=== PATIENT | female | born 1970 | race Caucasian/White ===

== ENCOUNTER 2017-03-16 09:13 | Emergency (ER) | payer OTHER, SELFPAY ==
[2017-03-16 09:14] VITALS: BP 116/77; PULSE 102; RESP 18; TEMP 36.9; O2SAT 97; BMI 39.2
--- NOTE | 2017-03-16 09:19 | ED.DCSUM_ITS ---
- ER Visit Summary Date of Service: 03/16/17 Chief Complaint: Left leg injury History of Present Illness: The patient is a 46 F presenting with left leg injury. She was running a swim meet this morning and when she stepped off of a platform, she felt a snap over her left Achilles/calf muscle region and has been unable to bear weight since then. She did not fall or sustain direct trauma. Denies any other injuries. Physical Examination: She has tenderness on palpation over the distal gastroc muscle on the left. There is no palpable deformity. She has no ankle or foot tenderness at all and has a strong pulse and normal neurovascular examination distally. Compartments are all soft. She can still flex her foot and her foot still moves when I squeeze her calf. No deformity. Test Results: Left leg x-ray today for acute fracture based on my independent interpretation. The formal radiology read is still pending. Emergency Department Course and Treatment: The location of her pain seems most consistent with a gastrocnemius muscle tear. She has soft compartments. Normal distal neurovascular examination. No evidence of an acute thromboembolic event. Treatment Plan: She was placed in a boot and given crutches and referred to orthopedics for close follow-up Disposition: Home stable condition Impression: Initial encounter acute left leg pain, suspect gastroc tear This note was generated with [employer] dictation software. It may contain incorrect words, spelling, and punctuation that were not noted in review of the chart prior to signing ED Disposition - Plan for ED Patient: Chief Complaint: Lower Extremity Injury Instructions: ED Tendon Rupture Achilles Prescriptions: Oxycodone HCl/Acetaminophen [Percocet 5/325] 1 tablet PO Q6H PRN PRN 3 Days #12 tablet PRN Reason: Pain Referrals: Melvin Jones DO [STAFF PHYSICIAN] -
--- NOTE | 2017-03-16 09:44 | RAD_ITS ---
STUDY: X-RAY - LEFT TIBIA AND FIBULA REASON FOR EXAM: Female, 46 years old. Trauma. TECHNIQUE: 2 view(s) of the tibia and fibula were obtained. COMPARISON: None. FINDINGS: Normal visualized tibia. Normal visualized fibula. The soft tissue structures are unremarkable. RAD/Tibia & Fibula 2 Views IMPRESSION: Normal x-ray examination of the tibia and fibula. Electronically Signed: Ephraim Reed MD at 9:56 EST Tel , Service support ,
[2017-03-16] MEDS: oxyCODONE 5 MG Tablet PO (10:24)
== END 2017-03-16 10:38 | disposition home or self-care (01) ==
PROVIDERS: Emergency Provider Emergency Medicine; Family Provider Internal Medicine; PCP Internal Medicine
DX: S86.112A Strain of other muscle(s) and tendon(s) of posterior muscle group at lower leg level, left leg, initial encounter (principal); M79.662 Pain in left lower leg; Z79.51 Long term (current) use of inhaled steroids; Z79.82 Long term (current) use of aspirin; Z79.4 Long term (current) use of insulin; Z79.899 Other long term (current) drug therapy; X58.XXXA Exposure to other specified factors, initial encounter; Y93.89 Activity, other specified; Y92.095 Swimming-pool of other non-institutional residence as the place of occurrence of the external cause; Y99.8 Other external cause status
CPT/HCPCS: 73590; 99285

== ENCOUNTER 2017-04-03 06:07 | Day surgery (SDC) | payer OTHER, SELFPAY ==
[2017-04-03] VITALS (8 sets, daily range): BP systolic 93–116; BP diastolic 49–100; PULSE 94–105; RESP 14–16; TEMP 35.8–36.3; O2SAT 96–100; BMI 38.5
[2017-04-03 06:57] LABS: Bedside Glucose 152 mg/dL (70-110)
[2017-04-03] MEDS: Cefazolin 1 GM/50 ML BAG IV (07:30)
--- NOTE | 2017-04-03 10:34 | PCM.OPRPT ---
Problem List (1) Achilles rupture, left Status: Acute Report of Operation Date of Procedure: 04/03/17 Pre-Operative Diagnosis: Achilles tendon rupture left foot Post-Operative Diagnosis: Achilles tendon rupture left foot Surgery/Procedure Performed:: Repair of left Achilles tendon rupture Description of Surgical Findings:: Moderate degeneration of left Achilles tendon with gapping of tendon at 8 cm proximal to the insertion on the calcaneus. Type of Anesthesia:: General, General/Regional - left popliteal Anesthesiologist: Chucky Villasenor Specimen's removed: degenerated tendon Drains: none Estimated Blood Loss (mL): minimal Description of Procedure: Pt was brought to OR and following sedation, was placed in the prone position. All prominences were well padded and protected. The popliteal block had been performed previously. A thigh tourniquet was put in place and the left lower leg was scrubbed, prepped, and draped in the usual aseptic manner. The left foot was then elevated to exsanguinate the limb and the pneumatic thigh tourniquet was inflated to 300mmHg. Then attention was directed to the left posterior lower leg, where an [id number] linear longitudinal incision was made medial and parallel to the central aspect of the left Achilles tendon. The incision was deepened through sharp and blunt dissection down to the level of the paratenon. All superficial bleeding vessels were cauterized and ligated. The sural nerve was protected, as was the small saphenous vein. The paratenon was then opened with a linear longitudinal incision through the watershed area of the tendon. The complete rupture was about 8 cm proximal to the insertion on the calcaneus. The tendon had moderate degeneration and fatty infiltration. This was sharply dissected throughout the proximal portion with the distal portion of the tendon being only minimally affected. The wound was flushed with copious amounts of NSS and the hematoma was drained at the rupture site, which was about 1cm. Then, with 3-0 Ethibond sutures, the tendon was repaired both proximally and distally with 2 separate sutures in a modified Alfred type of stitch. At the rupture site, the ends were tied together, reducing the gap and coapting the tendon ends. 2-0 Ethibond sutures were then sutured throughout the entire length of the tendon, serving as further reinforcement. With slight dorsiflexion of the foot, the tendon remained intact. Then, a trimmed 1.5mm thickness Arthroflex 101 Acellular dermis with Matracell was placed on the superficial aspect of the tendon. It was sutured in place with 3-0 vicryl sutures. The paratenon was then reapproximated and coapted using 3-0 vicryl sutures, and a small amount of gapping was present due to the increased thickness with the graft. The subcutaneous tissues were reapproximated and coapted with 3- vicryl sutures. Skin was reapproximated and coapted using 3-0 prolene sutures. Xeroform was then placed along the incision line. A sterile compressive dressing consisting of 4x4 gauze and kerlix was applied. ABD's were applied for heel cushions. A well padded posterior splint was then applied. The thigh tourniquet was released and a prompt hyperemic response was present to the toes of the left foot. The patient was transferred to the recovery room with vital signs stable and vascular status intact to left foot. Following a period of post operative monitoring, the patient will be discharged with written and oral home going instructions. She is to keep the dressing and splint clean, dry, intact and avoid excessive ambulation. Strict NWB left foot and she uses an knee walker and crutches. Follow in Dr. Ivy's office for follow up care and if any problems arise. Rx was written for Percocet for pain control to be taken prn. Grafts/Implants Used: Arthroflex 101 Acellular dermis with matracell 1.5mm thickness - Complications none - Admit VTE Documentation VTE Pharm Prophylaxis ordered?: No Reason prophylaxis not ordered:: Procedure Not Indicated
[2017-04-03 11:01] LABS: Bedside Glucose 125 mg/dL (70-110)
== END 2017-04-03 12:37 | disposition home or self-care (01) ==
LOC: SDC 06:08 → AC 06:09
PROVIDERS: Family Provider Internal Medicine; PCP Internal Medicine; Visit Provider Podiatrist
PROC: (CPT 27650; principal; 2017-04-03 07:15)
DX: S86.012A Strain of left Achilles tendon, initial encounter (principal); E11.9 Type 2 diabetes mellitus without complications; I65.23 Occlusion and stenosis of bilateral carotid arteries; I10 Essential (primary) hypertension; E78.2 Mixed hyperlipidemia; K21.9 Gastro-esophageal reflux disease without esophagitis; J45.909 Unspecified asthma, uncomplicated; G43.909 Migraine, unspecified, not intractable, without status migrainosus; M54.12 Radiculopathy, cervical region; I48.91 Unspecified atrial fibrillation; F34.1 Dysthymic disorder; Z86.010 Personal history of colon polyps; H81.09 Meniere's disease, unspecified ear; E55.9 Vitamin D deficiency, unspecified; E11.43 Type 2 diabetes mellitus with diabetic autonomic (poly)neuropathy; I34.1 Nonrheumatic mitral (valve) prolapse; F41.9 Anxiety disorder, unspecified; F32.9 Major depressive disorder, single episode, unspecified; Z79.51 Long term (current) use of inhaled steroids; Z79.4 Long term (current) use of insulin; Z79.899 Other long term (current) drug therapy; Z79.82 Long term (current) use of aspirin; Z79.891 Long term (current) use of opiate analgesic; Z87.891 Personal history of nicotine dependence; X58.XXXA Exposure to other specified factors, initial encounter; Y93.9 Activity, unspecified; Y92.9 Unspecified place or not applicable; Y99.9 Unspecified external cause status
CPT/HCPCS: 01472; 27650; 82962; J7120; J2405

== ENCOUNTER → 2017-05-20 12:33 | Outpatient (CLI) | payer OTHER, SELFPAY ==
--- NOTE | 2017-05-20 12:35 | BI_ITS ---
MAMMOGRAPHY - BILATERAL SCREENING REASON FOR EXAM: Female, 46 years old. Routine annual screening examination. PERTINENT HISTORY: Non-contributory. TECHNIQUE: Digital bilateral breast marine (3D mammographic acquisition) in the CC and MLO projections. 2-D mediolateral oblique (MLO) and craniocaudad (CC) views of both breasts were obtained. CAD: Full Field Digital Mammography with Computer Added Detection was performed. COMPARISON: Comparison is made with prior study dated October 06, 2015 and April 27, 2013. FINDINGS: Breast Composition: The breasts are almost entirely fatty. There are no dominant masses or suspicious calcifications. The previously seen nodular density in the deep upper outer aspect of the right breast has decreased in size. It presently measures 3.6 mm x 6.3 mm. No other significant abnormalities are identified. There has been no significant change since the prior study. BI/SCREENING MAMM (CAD), BILAT IMPRESSION: Stable bilateral screening mammogram. Yearly follow-up mammogram recommended. (A) ASSESSMENT CATEGORY: BIRADS Category 2: Benign. A letter regarding these results will be sent to the patient by the facility within 30 days. Approximately 10% of breast cancers are not detected by mammography. A normal mammogram should not delay biopsy of a clinically suspicious abnormality. [id number] Electronically Signed: Abdirahman Salas MD at 14:15 EDT Tel [phone], Service support ,
== END ==
PROVIDERS: Family Provider Internal Medicine; PCP Internal Medicine; Visit Provider Internal Medicine
DX: Z12.31 Encounter for screening mammogram for malignant neoplasm of breast (principal)
CPT/HCPCS: 77063; 77067

== ENCOUNTER → 2017-08-16 08:48 | Outpatient (CLI) | payer OTHER, SELFPAY ==
--- NOTE | 2017-08-16 09:00 | RAD_ITS ---
STUDY: X-RAY - ESOPHAGUS (BARIUM SWALLOW) WITH FLUOROSCOPY REASON FOR EXAM: Female, 46 years old. Dysphagia for solids. TECHNIQUE: 16 view(s) of the esophagus were obtained following swallowing of barium. FLUOROSCOPY TIME (if supplied): (0:32) minutes/seconds COMPARISON: None. FINDINGS: There is no demonstrated esophageal foreign body. There is no demonstrated stricture or mucosal abnormality. There is a small hiatal hernia of the fundus of the stomach. Mild degree of gastroesophageal reflux. The patient ingested a 12 mm tablet of barium without any difficulty. Normal visualized aortic arch and descending thoracic aorta. Normal visualized pulmonary parenchyma. Normal visualized osseous structures of the thorax. RAD/Esophagus Only IMPRESSION: Small sliding hiatal hernia with gastroesophageal reflux. Electronically Signed: Abdirahman Salas MD at 9:36 EDT Tel [phone], Service support ,
== END ==
PROVIDERS: Family Provider Family Medicine; PCP Family Medicine; Visit Provider Internal Medicine Gastroenterology
DX: R13.10 Dysphagia, unspecified (principal)
CPT/HCPCS: 74220

== ENCOUNTER → 2017-11-04 15:59 | Outpatient (CLI) | payer OTHER, SELFPAY ==
[2017-11-08 08:22] LABS: HPV Reflexed? NOT INDICATED
== END ==
PROVIDERS: Family Provider Family Medicine; PCP Family Medicine; Visit Provider Obstetrics & Gynecology
DX: Z12.4 Encounter for screening for malignant neoplasm of cervix (principal)
CPT/HCPCS: 88175; G0145

== ENCOUNTER → 2017-11-18 07:57 | Outpatient (CLI) | payer OTHER, SELFPAY ==
[2017-11-18 12:12] LABS: Absolute Lymphocyte Count 3.15 X10^3/ul (0.83-4.51); Absolute Neutrophil Count 5.1 X10^3/uL (2.0-7.7); Basophil# 0.03 X10^3/uL; Basophil% 0.3 % (0-1); Eosinophils% 3.2 % (0-5); Hematocrit 42.1 % (37-47); Hemoglobin 13.6 g/dl (12.0-15.0); Lymphocyte # 3.15 X10^3/ul (4.0); Lymphocyte % 33.7 % (19-41); Mean Corp Hgb Conc 32.3 g/gl (32-36); Mean Corpuscular Hgb 30.9 pg (27.0-32.0); Mean Corpuscular Volume 95.7 fL (81-99); Mean Platelet Vol. 9.2 fl (6.2-12.0); Monocyte# 0.72 X10^3/uL; Monocyte% 7.7 % (0-10); Neutrophil # 5.14 X10^3/uL (2.7-7.7); POSITIVE COUNT NO; POSITIVE DIFFERENTIAL NO; POSITIVE MORPHOLOGY NO; Platelet Count 322 K/mm3 (150-450); RBC Distribution Width CV 13.2 % (11.6-14.6); RBC Distribution Width SD 45.9 fl (35.1-43.9); White Blood Count 9.4 K/mm3 (4.4-11.0)
[2017-11-18 12:14] LABS: Hemoglobin A1c 7.6 % (4.2-6.3)
[2017-11-18 12:20] LABS: ALB/GLOB Ratio 0.8 RATIO (0.9-2.4); AST(SGOT) 20 U/L (15-37); Alanine Aminotransfer ALT/SGPT 39 U/L (13-56); Albumin, Serum 3.4 g/dL (3.2-5.0); Alkaline Phosphatase 95 U/L (45-117); Anion Gap 7 (5-15); BUN 16 mg/dL (7-18); BUN/Creat Ratio 18.3 RATIO (10-20); Calcium,Total 8.7 mg/dL (8.5-10.1); Chloride 104 mmol/L (98-107); Cholesterol 211 mg/dL (200); Creatinine, Serum 0.87 mg/dL (0.55-1.02); EST Glomerular Filtration Rate 74 mL/min (>60); Est Glom Filt Rate - Afr Amer 90 mL/min (>60); Globulin 4.1 g/dL (2.2-4.2); Glucose 91 mg/dL (74-106); High Density Lipoprotein 41 mg/dL; Potassium 3.7 mmol/L (3.5-5.1); Protein, Total 7.5 g/dL (6.4-8.2); Sodium Level 137 mmol/L (136-145); Thyroid Stim Hormone (TSH) 3.83 uIU/mL (0.358-3.74); Triglycerides 299 mg/dL; Very Low Density Lipoprotein 60 mg/dL (5-40)
[2017-11-18 12:21] LABS: Microalbumin,Random Urine < 5.0 mg/L (NO RANGE EST.)
== END ==
PROVIDERS: Family Provider Family Medicine; PCP Family Medicine; Visit Provider Orthopaedic Surgery Hand Surgery
DX: E11.9 Type 2 diabetes mellitus without complications (principal); K21.9 Gastro-esophageal reflux disease without esophagitis; F32.9 Major depressive disorder, single episode, unspecified; G56.01 Carpal tunnel syndrome, right upper limb; J45.909 Unspecified asthma, uncomplicated
CPT/HCPCS: 36415; 80053; 80061; 82043; 82570; 83036; 84443; 85025

== ENCOUNTER 2018-03-18 08:30 | Outpatient (RCR) | payer OTHER, SELFPAY ==
[2018-01-20 11:54] VITALS: BMI 39.2
[2018-01-30 10:05] VITALS: BMI 41.3
--- NOTE | 2018-02-20 11:44 | HP.PTEVAL ---
Patient's Visit Information DEIDRA CALLEJAS is a 47 year old F referred to Physical Therapy by Chante Ivy with a diagnosis of Left Achilles Rupture with Repair. Date of Evaluation: 02/20/18 Physical Therapist: Yanni Salcedo DPT - Visit Plan Frequency: 2-3x /Week Duration: 4 Weeks Plan: Modality- US and Dry Needling with scar massage/management - Subjective Findings: Left Ruptured achilles Mar 16 last year had surgery Apr [address] Ivy- had to do a graft due to the severity of the rupture. Did the normal stuff crutches, boot, etc. 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 She has sharp/shooting pain in the foot and she has increased pain. She thinks its nerve pain. Pain is located along the whole heel and along the achilles-and the pain radiates to the toes-no radiating pain up the leg. Describes the pain as stabbing- makes her jump sometimes- can't stand anyone touching it. Swelling was entrapping the nerve. Worst: 8/10 Agg: standing up on it- night laying down Hard to sleep. Best: 0/10 Eases: mornings it feels pretty good, elevation/rest. 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 She is on her feet a lot. does not have full feeling in the toes but gets better as she comes more towards the heel. No cramping in the toes but does get them in the gastroc. Did do formal physical therapy at [facility]- did have ice water baths, e-stim and ultrasound. Had a spinal injection about an hour ago so she is a little foggy. Has them about every 3 months. No recent imaging. PMHx: semi accident- shoulder surgery on the right 6 or so years ago, Right Hip surgery cleaned up about 18 years ago, left ankle horse ligament put in 2010, Carpal Tunnel 6 years ago with restructure this year, Gallbladder in - DM Type 2, low blood pressure, Radical hysterectomy 2016, migraines. Meds: potasium cholride, glucophage, daily asprin, imortiprolene, topomax, lovonox- will bring a list next time. walk around thick soled slippers since surgery- comfortable in ugg type boots (bearpaw) with a thick sole- no orthotics- to painful to wear tennis shoes. - Objective Posture: FH, RS. Gait: no deviation noted. SLS: not tested. HR/TR: able with UE A. ROM: WNL. Strength: 5/5 throughout LE. Scar: significant adhesions along achilles tendon- hypersensitive along entire scar. Did not test SLS or stairs secondary to spinal injection approx an hour ago- still groggy from anesthsia. Will get other measurements as needed at later date- no treatment today will start next visit - Goals Goal 1:: Patient will demonstrate ability to touch scar with 0/10 pain Goal Time Frame: 4-6 Weeks Goal 2:: Patient will report ability to return to all ADL's with 0/10 pain Goal Time Frame: 4-6 Weeks Goal 3:: Patient will have little scar adhesions along gastroc scar Goal Time Frame: 4-6 Weeks - Rehabilitation Potential Physical Therapy Diagnosis: Patient presents with hypomobility of the scar along achilles- she has incresed scar tissue increased pain with ADL's. Rehabilitation Potential: Fair - Anticipated Interventions Patient/Client Instruction: Educate patient on: Benefits of Fitness Program Manual Therapy Techniques to Include: Functional dry needling For the Purpose of:: To improve nutrient delivery to tissue TENS: Yes Cryotherapy (ice pack, ice massage): Yes Ultrasound (thermal/non thermal): Yes For the Purpose of:: To decrease pain, To decrease swelling/inflammation Thank you for the opportunity to evaluate your patient. For Medicare and Medicare HMO plans, please review the plan of care and approve it. It will need to be FAXED BACK to us at [phone] for Medicare purposes. For Medicare only, by signing this I certify the plan of care. Please let me know if there are questions or concerns regarding this plan of care. Physician Signature: Date:
--- NOTE | 2018-06-12 11:49 | HP.PT.NRP ---
HP - Discharge Summary (1) - Patient Information DEIDRA CALLEJAS was seen in my office for initial evaluation on 02/20/18. The following Plan of Care was established for this patient: Initial Frequency: 2-3x /Week Initial Duration: 4 Weeks - Anticipated Interventions Patient/Client Instruction: Educate patient on: Benefits of Fitness Program Manual Therapy Techniques to Include: Functional dry needling For the Purpose of:: To improve nutrient delivery to tissue TENS: Yes Cryotherapy (ice pack, ice massage): Yes Ultrasound (thermal/non thermal): Yes For the Purpose of:: To decrease pain, To decrease swelling/inflammation This patient was last seen in our office . Pertinent comments regarding their Physical therapy will appear below: Patient has not attended physical therapy is over 30 days- appropriate to be d/c from PT and return to MD as needed for further evaluation. At this point I will be discontinuing this patient from physical therapy. I would be happy to see this patient again in the future if found appropriate by the physician. Thank you! SHAYE CervantesT
== END 2018-03-18 19:00 | disposition home or self-care (01) ==
LOC: PT 08:30
PROVIDERS: Family Provider Family Medicine; PCP Family Medicine; Referring Provider Podiatrist; Visit Provider Podiatrist
DX: Z98.890 Other specified postprocedural states (principal)
CPT/HCPCS: 97014; 97035; 97140; 97161; G0283

== ENCOUNTER → 2018-04-28 10:32 | Outpatient (CLI) | payer OTHER, SELFPAY ==
[2018-01-30 10:05] VITALS: BMI 41.3
--- NOTE | 2018-04-28 10:41 | MRI_ITS ---
STUDY: MRI BRAIN WITHOUT CONTRAST REASON FOR EXAM: Female, 47 years old. migraine -- weakness rt side, episodes of speech problems x 1 1/2 months. TECHNIQUE: Standardized multiplanar fat and water weighted pulse sequences were obtained. COMPARISON: July 16, 2016 FINDINGS: Normal size of the ventricles and extra-axial spaces for the patient's age. Normal white matter tracts of the supratentorial brain. Normal bilateral basal ganglia. Normal thalami. There is no extra-axial fluid accumulation. Normal flow voids within the major intracranial circulation suggesting patency by spin echo criteria. Normal sella turcica, pituitary gland, infundibular stalk, optic chiasm and hypothalamus. Normal tectal plate and pineal gland. Normal midbrain, arnel and medulla. Normal cerebellum. Normal basal cisterns. Normal bilateral temporal bones. Normal bilateral internal auditory canals. No demonstrated orbital abnormality, within the constraints of a routine brain study. Normal visualized paranasal sinuses. Normal calvarium and skull base. Normal visualized soft tissue structures. Normal visualized upper cervical spine. MRI/Brain without Contrast IMPRESSION: Normal unenhanced MRI of the brain. Electronically Signed: Nik Chavez MD at 10:32 EDT Tel , Service support ,
== END ==
LOC: MRI 10:33
PROVIDERS: Family Provider Family Medicine; PCP Family Medicine; Referring Provider Psychiatry & Neurology Neurology; Visit Provider Psychiatry & Neurology Neurology
DX: G43.719 Chronic migraine without aura, intractable, without status migrainosus (principal)
CPT/HCPCS: 70551

== ENCOUNTER 2018-06-01 13:50 | Observation (INO) | payer OTHER, SELFPAY ==
[2018-01-30 10:05] VITALS: BMI 41.3
[2018-06-01] VITALS (11 sets, daily range): BP systolic 104–141; BP diastolic 62–87; PULSE 77–91; RESP 14–16; TEMP 36.1–36.9; O2SAT 98–100; BMI 42.0; BMI 40.8; BMI 40.9
--- NOTE | 2018-06-01 14:07 | CT_ITS ---
STUDY: CTA OF THE BRAIN REASON FOR EXAM: Female, 47 years old. TROUBLE SPEAKING X 4 DAYS RADIATION DOSAGE (If Supplied By Facility): CTDIvol = ( 27.33 ) mGy, DLP = ( 1468.53 ) mGycm TECHNIQUE: CT angiography was performed with a multi-detector CT scanner. Data acquisition was obtained from the skull base through the vertex following intravenous administration of 100ML IV Isovue 370. MIP images were reconstructed from the axial data set. Post-processing of the angiographic images was performed, with multiplanar reformation and 3D reconstruction. Individualized dose optimization techniques were used for this CT. COMPARISON: MRI dated April 28, 2018 FINDINGS: Normal bilateral petrous carotid arteries. Normal right cavernous carotid artery with a normal supraclinoid bifurcation. Normal left cavernous carotid artery with a normal supraclinoid bifurcation. Normal right A1 segments of the anterior cerebral artery. Normal left A1 segments of the anterior cerebral artery. Normal intact anterior communicating artery (ACOM). Normal bilateral A2 segments of the anterior cerebral arteries. Normal right M1 and M2 segments of the middle cerebral arteries, with a normal M1 bifurcation. Normal left M1 and M2 segments of the middle cerebral arteries, with a normal M1 bifurcation. There is a persistent origin of the right posterior cerebral artery with absence of the posterior communicating artery (PCOM). There is non-visualization of the left posterior communicating artery (PCOM). Normal bilateral vertebral arteries. Normal basilar artery with a normal basilar bifurcation. The visualized bilateral superior cerebellar (SCA) arteries are normal. Normal bilateral P1, P2 and visualized P3 segments of the posterior cerebral arteries. There is no demonstrated aneurysm of the [place]. There is no demonstrated abnormality of the visualized brain. IMPRESSION: Normal [place] without a demonstrated aneurysm or hemodynamically significant stenosis. Electronically Signed: Nik Chavez MD at 15:14 EDT Tel , Service support , STUDY: CTA NECK WITH CONTRAST REASON FOR EXAM: Female, 47 years old. TROUBLE SPEAKING X 4 DAYS RADIATION DOSAGE (If Supplied By Facility): CTDIvol = ( ) mGy, DLP = ( ) mGycm TECHNIQUE: CT angiography with multi-detector data acquisition was performed from the aortic arch to the skull base following intravenous administration of 100ML IV Isovue 370. MIP images were reconstructed from the axial data set. Post-processing of the angiographic images was performed, with multiplanar reformation and 3D reconstruction. Individualized dose optimization techniques were used for this CT. COMPARISON: None. FINDINGS: AORTIC ARCH: Normal visualized aortic arch. Normal origins of the brachiocephalic, left common carotid, and left subclavian arteries. RIGHT CAROTID ARTERIES: Normal right common carotid artery (CCA). Normal right common carotid bulb. Normal origin of the right internal carotid (ICA) artery without a hemodynamically significant stenosis. Normal visualized cervical portion of the right internal carotid artery. Normal origin of the right external carotid artery (ECA). LEFT CAROTID ARTERIES: Normal left common carotid artery (CCA). Normal left common carotid bulb. Normal origin of the left internal carotid (ICA) artery without a hemodynamically significant stenosis. Normal visualized cervical portion of the left internal carotid artery. Normal origin of the left external carotid artery (ECA). VERTEBRAL ARTERIES: Normal bilateral vertebral arteries. CT/CTA Neck W/WO Contrast IMPRESSION: Normal bilateral cervical carotid and vertebral arteries. Electronically Signed: Nik Chavez MD at 15:17 EDT Tel , Service support ,
--- NOTE | 2018-06-01 14:07 | CT_ITS ---
STUDY: CTA OF THE BRAIN REASON FOR EXAM: Female, 47 years old. TROUBLE SPEAKING X 4 DAYS RADIATION DOSAGE (If Supplied By Facility): CTDIvol = ( 27.33 ) mGy, DLP = ( 1468.53 ) mGycm TECHNIQUE: CT angiography was performed with a multi-detector CT scanner. Data acquisition was obtained from the skull base through the vertex following intravenous administration of 100ML IV Isovue 370. MIP images were reconstructed from the axial data set. Post-processing of the angiographic images was performed, with multiplanar reformation and 3D reconstruction. Individualized dose optimization techniques were used for this CT. COMPARISON: MRI dated April 28, 2018 FINDINGS: Normal bilateral petrous carotid arteries. Normal right cavernous carotid artery with a normal supraclinoid bifurcation. Normal left cavernous carotid artery with a normal supraclinoid bifurcation. Normal right A1 segments of the anterior cerebral artery. Normal left A1 segments of the anterior cerebral artery. Normal intact anterior communicating artery (ACOM). Normal bilateral A2 segments of the anterior cerebral arteries. Normal right M1 and M2 segments of the middle cerebral arteries, with a normal M1 bifurcation. Normal left M1 and M2 segments of the middle cerebral arteries, with a normal M1 bifurcation. There is a persistent origin of the right posterior cerebral artery with absence of the posterior communicating artery (PCOM). There is non-visualization of the left posterior communicating artery (PCOM). Normal bilateral vertebral arteries. Normal basilar artery with a normal basilar bifurcation. The visualized bilateral superior cerebellar (SCA) arteries are normal. Normal bilateral P1, P2 and visualized P3 segments of the posterior cerebral arteries. There is no demonstrated aneurysm of the [place]. There is no demonstrated abnormality of the visualized brain. IMPRESSION: Normal [place] without a demonstrated aneurysm or hemodynamically significant stenosis. Electronically Signed: Nik Chavez MD at 15:14 EDT Tel , Service support , STUDY: CTA NECK WITH CONTRAST REASON FOR EXAM: Female, 47 years old. TROUBLE SPEAKING X 4 DAYS RADIATION DOSAGE (If Supplied By Facility): CTDIvol = ( ) mGy, DLP = ( ) mGycm TECHNIQUE: CT angiography with multi-detector data acquisition was performed from the aortic arch to the skull base following intravenous administration of 100ML IV Isovue 370. MIP images were reconstructed from the axial data set. Post-processing of the angiographic images was performed, with multiplanar reformation and 3D reconstruction. Individualized dose optimization techniques were used for this CT. COMPARISON: None. FINDINGS: AORTIC ARCH: Normal visualized aortic arch. Normal origins of the brachiocephalic, left common carotid, and left subclavian arteries. RIGHT CAROTID ARTERIES: Normal right common carotid artery (CCA). Normal right common carotid bulb. Normal origin of the right internal carotid (ICA) artery without a hemodynamically significant stenosis. Normal visualized cervical portion of the right internal carotid artery. Normal origin of the right external carotid artery (ECA). LEFT CAROTID ARTERIES: Normal left common carotid artery (CCA). Normal left common carotid bulb. Normal origin of the left internal carotid (ICA) artery without a hemodynamically significant stenosis. Normal visualized cervical portion of the left internal carotid artery. Normal origin of the left external carotid artery (ECA). VERTEBRAL ARTERIES: Normal bilateral vertebral arteries. CT/CTA Head W/WO Contrast IMPRESSION: Normal bilateral cervical carotid and vertebral arteries. Electronically Signed: Nik Chavez MD at 15:17 EDT Tel , Service support ,
--- NOTE | 2018-06-01 14:07 | EKG12_ITS ---
Test Reason : NEURO Blood Pressure : / mmHG Vent. Rate : 085 BPM Atrial Rate : 085 BPM P-R Int : 180 ms QRS Dur : 086 ms QT Int : 382 ms P-R-T Axes : 029 005 028 degrees QTc Int : 454 ms Normal sinus rhythm Normal ECG Confirmed by FERNIE LOPEZ, ANA ([id number]), photo editor EDITA CHANDRA ([id number]) on 06/04/2018 1:23:08 PM Referred By: MAURILIO Confirmed By:ANA ENCISO MD
[2018-06-01 14:16] LABS: Absolute Lymphocyte Count 2.72 X10^3/ul (0.83-4.51); Absolute Neutrophil Count 5.8 X10^3/uL (2.0-7.7); Basophil# 0.04 X10^3/uL; Basophil% 0.4 % (0-1); Eosinophil# 0.53 X10^3/uL; Eosinophils% 5.4 % (0-5); Hematocrit 41.2 % (37-47); Hemoglobin 13.9 g/dl (12.0-15.0); Lymphocyte # 2.72 X10^3/ul (4.0); Lymphocyte % 27.8 % (19-41); Mean Corp Hgb Conc 33.7 g/gl (32-36); Mean Corpuscular Volume 94.9 fL (81-99); Mean Platelet Vol. 9.6 fl (6.2-12.0); Monocyte# 0.66 X10^3/uL; Monocyte% 6.8 % (0-10); Neutrophil # 5.79 X10^3/uL (2.7-7.7); Neutrophil % 59.3 % (47-70); Platelet Count 298 K/mm3 (150-450); RBC Distribution Width CV 13.4 % (11.6-14.6); RBC Distribution Width SD 45.8 fl (35.1-43.9); Red Blood Count 4.34 M/mm3 (4.2-5.4); White Blood Count 9.8 K/mm3 (4.4-11.0)
--- NOTE | 2018-06-01 14:17 | NURSING ---
PTPPT HEMOLIZED, NEEDS REDRAWN
[2018-06-01 14:18] LABS: POSITIVE COUNT NO; POSITIVE DIFFERENTIAL NO; POSITIVE MORPHOLOGY NO
[2018-06-01 14:31] LABS: Anion Gap 7 (5-15); BUN 11 mg/dL (7-18); BUN/Creat Ratio 12.6 RATIO (10-20); Calcium,Total 8.7 mg/dL (8.5-10.1); Chloride 110 mmol/L (98-107); Creatinine, Serum 0.87 mg/dL (0.55-1.02); EST Glomerular Filtration Rate 74 mL/min (>60); Est Glom Filt Rate - Afr Amer 90 mL/min (>60); Estimated Creatinine Clearance 87.37 ml/min; Glucose 121 mg/dL (74-106); Potassium 3.9 mmol/L (3.5-5.1); Sodium Level 141 mmol/L (136-145)
[2018-06-01 14:31] LABS: Bedside Glucose 118 mg/dL (70-110)
[2018-06-01] MEDS: 0.9% Normal Saline 1,000 ML 100 ML IV ×2 (14:33→17:02)
[2018-06-01 14:39] LABS: Prothrombin Time (Protime)PT. 12.8 SECONDS (11.7-14.9)
[2018-06-01 14:40] LABS: Partial Thromboplast Time 25.4 Seconds (24.1-36.2)
--- NOTE | 2018-06-01 15:01 | RAD_ITS ---
STUDY: X-RAY CHEST REASON FOR EXAM: Female, 47 years old. Intermittent cough TECHNIQUE: Single view of the chest was obtained COMPARISON: . February 21, 2017 FINDINGS: No lung consolidation, pleural effusion or pneumothorax. Cardiac size is stable. Osseous structures demonstrate no acute abnormalities. IMPRESSION: No acute cardiopulmonary pathology seen. Electronically Signed: Humberto Crisostomo, at 15:16 EDT Tel , Service support , RAD/Chest 1 View
--- NOTE | 2018-06-01 15:36 | NURSING ---
DR HAMMER FOR DR THORPE
--- NOTE | 2018-06-01 15:39 | ED.VISSUMM ---
- ER Visit Summary Date of Service: 06/01/18 Chief Complaint: Weakness and speech difficulties History of Present Illness: The patient is a [address] Taylor and Dr. Zaragoza. She reports that she has had difficulty speaking for the past 4 days. She reports that the words do not want to come out. She also reports that she has been off balance and felt lightheaded. She has weakness in her right leg. She has paresthesias in her right arm, leg, and right side of her face. Patient reports that today she is working in the barn had a syncopal episode while carrying heavy. She been standing for approximately 10 minutes. This was preceded by lightheadedness and palpitations as well as nausea. She denies any chest pain or diaphoresis. Physical Examination: Vitals: Stable. Afebrile. General: Well-nourished and well-developed. Head: Normocephalic atraumatic. Neck: Supple, no lymphadenopathy. No JVD. Nontender. Cardiovascular: Regular rate and rhythm. No murmurs. Respiratory: No respiratory distress. Clear to auscultation bilaterally. Abdominal: Soft, nontender, nondistended, normal bowel sounds. No guarding, rebound, or peritoneal signs. Back: Nontender. Extremities: Nontender, no edema. Skin: Normal color, no rash. Neurologic: Alert and oriented ?3. She does have a slight expressive aphasia. Cranial nerves II through XII are intact except for decreased sensation to light touch in a V1 to V3 distribution on the right. She has 4-5 strength right lower extremity. 5 out of 5 in her extremities otherwise. She has decreased sensation to light touch in right upper and right lower extremities. This gives her an NIH scale of 3. Psych: Normal affect. Test Results: EKG is sinus at 85 with normal intervals. No evidence of Brugada syndrome. Troponin is negative. Coags are normal. Chem-7 shows a chloride of 110 and glucose 121. CBC shows eosinophils of 5. Chest x-ray is normal. Clinical Impression(s) from Imaging Studies Head CTA 06/01/18 14:07 IMPRESSION: Normal bilateral cervical carotid and vertebral arteries. Electronically Signed: Nik Chavez MD at 15:17 EDT Tel , Service support , Neck CTA 06/01/18 14:07 IMPRESSION: Normal bilateral cervical carotid and vertebral arteries. Electronically Signed: Nik Chavez MD at 15:17 EDT Tel , Service support , Emergency Department Course and Treatment: Patient denies scale was 3. She does have an expressive aphasia. However, her symptoms of been present for 4 days. She is not a TPA candidate. On repeat exam she does have better strength in her right lower extremity as well. Treatment Plan: The patient was discussed with Dr. Toth. She will be admitted to the hospital for further evaluation and treatment. Disposition: Admitted in improved condition. Impression: 1. Syncope. 2. Right-sided weakness. 3. Expressive aphasia. This note was generated with [employer] dictation software. It may contain incorrect words, spelling, and punctuation that were not noted in review of the chart prior to signing ED Disposition - Plan for ED Patient: Referrals: Kasey Lewis MD [Primary Care Provider] -
--- NOTE | 2018-06-01 15:42 | NURSING ---
PCU [facility]
--- NOTE | 2018-06-01 16:03 | PCM.HP.STD ---
<Alex Jesus - Last Filed: 06/01/18 16:03> Problem List (1) Aphasia Status: Acute (2) Anxiety Status: Chronic (3) Migraine headache Status: Chronic (4) Diabetic polyneuropathy Status: Chronic Qualifiers: Diabetes mellitus type: type 2 Qualified Code(s): E11.42 - Type 2 diabetes mellitus with diabetic polyneuropathy (5) Hypertension Status: Chronic (6) Asthma Status: Chronic (7) Diabetes type I Status: Chronic (8) Paroxysmal atrial fibrillation Status: Chronic History of Present Illness Date of Admission: 06/01/18 Chief Complaint: difficulty speaking The patient is a 47 year old F with pmhx of migraine, paroxysmal Afib s/p ablation, DMt2, gastroparesis, morbid obesity, anxiety, asthma who presents to the ER with dificulty speaking. She first started feeling unwell on Saturday. She was feeling shaky, dizzy, and had difficulty getting words out. She normally does not have difficulties with her speech. In the ER she starts a sentence than has to stop and think for a while and appears frustrated by trying to find the correct word. Today she had a syncopal episode which prompted her to come to the ER. She was working in her barn doing chores, and collapsed. This was unwitnessed, she woke up no the floor unsure what happened. There was no loss of bowel or bladder, and no tongue biting. She got up, completed her chores, then drove to urgent care. She was sent from there to the ER. She continues to have primarily the difficulty speaking. She has no focal weakness. CTA head and neck was normal. She states that she had similar speech this past year, and never was seen by a doctor for it. She does report being under a great deal of stress lately. 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 She is sleeping 3-4 hours per night. No drug/alcohol use. Denies physical/emotional abuse by . She has a neurologist in [place]. She denies recent illness. [] Past Medical History Past Medical History (Chronic Problems): Chronic Problems (Last Reviewed 01/29/17 @ 12:42 by Alan Taylor MD) Anxiety (Chronic) Migraine headache (Chronic) Diabetic polyneuropathy (Chronic) Hypertension (Chronic) Encounter for long-term (current) use of other medications (Chronic) Asthma (Chronic) Diabetes type I (Chronic) Paroxysmal atrial flutter (Chronic) Paroxysmal atrial fibrillation (Chronic) Pelvic pain (Chronic) Medical History: Medical History (Last Reviewed 01/29/17 @ 12:42 by Alan Taylor MD) Diabetic polyneuropathy (Chronic) E11.42 Hypertension (Chronic) I10 Asthma (Chronic) J45.909 Diabetes type I (Chronic) E10.9 Paroxysmal atrial flutter (Chronic) I48.92 Paroxysmal atrial fibrillation (Chronic) I48.0 Allergies venom-honey bee [bee venom (honey bee)] Allergy (Severe, Verified 04/02/17 08:59) Anaphylaxis Influenza Virus Vaccines Allergy (Verified 04/02/17 08:59) HIVES AT INJECTION SITE bacitracin [From Triple Antibiotic] Adverse Reaction (Verified 04/02/17 08:59) blisters and itching bacitracin zinc [From Triple Antibiotic] Adverse Reaction (Verified 04/02/17 08:59) blisters and itching canagliflozin [From Invokana] Adverse Reaction (Verified 04/02/17 08:59) Nausea/Vom/Diarrhea neomycin sulfate [From Triple Antibiotic] Adverse Reaction (Verified 04/02/17 08:59) blisters and itching polymyxin B [From Triple Antibiotic] Adverse Reaction (Verified 04/02/17 08:59) blisters and itching polymyxin B sulfate [From Triple Antibiotic] Adverse Reaction (Verified 04/02/17 08:59) blisters and itching simvastatin Adverse Reaction (Verified 04/02/17 08:59) Nausea/Vom/Diarrhea Home Medications: Ambulatory Orders Medication Instructions Recorded DiphenhydrAMINE [Benadryl] 25 mg PO TID PRN PRN 01/20/15 Epi Pen (for allergic rxn) 0.3 mg IM DAILY PRN 01/20/15 Escitalopram Oxalate [Lexapro] 20 mg PO DAILY 01/20/15 Glucophage 1,000 mg PO BID 01/20/15 Aspirin [Adult Low Dose Aspirin EC] 81 mg PO DAILY 02/23/15 Exenatide Microspheres [Bydureon 2 mg SQ TU 08/21/16 Pen] busPIRone [Buspar] 15 mg PO BID 08/21/16 proMETHazine tablet [Phenergan 25 mg PO PRN PRN 08/21/16 tablet] Insulin Detemir [Levemir FlexPen] 10 - 30 units SC QHS 09/19/16 cholecalciferol (vitamin D3) 10,000 unit PO QHS 01/29/17 10,000 unit capsule insulin detemir (U-100) 100 50 unit SC DAILY ml 01/29/17 unit/mL (3 mL) subcutaneous pen lovastatin 40 mg tablet 40 mg PO QHS 01/29/17 magnesium oxide 500 mg capsule 500 mg PO QHS cap 01/29/17 Albuterol Inhaler [Ventolin Hfa] 2 puff INHALATION Q4H PRN PRN #1 02/22/17 inhaler Topiramate [Topamax] 100 mg PO QHS 02/22/17 traZODone [Desyrel] 50 mg PO QHS PRN 02/22/17 Multivitamin [Multiple Vitamins] 1 ea PO QHS 04/02/17 potassium chloride ER 20 mEq 20 meq PO QHS #90 tab 08/12/17 tablet,extended release gabapentin 100 mg capsule 100 mg PO DAILY 30 Days #30 cap 01/30/18 omeprazole 40 mg capsule,delayed 40 mg PO BID 01/30/18 release Surgical History: hysterectomy, - - ablation x 2, achilles tendon repair Psychiatric History: Anxiety [employer] SERV[employer] 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[employer]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 Lives: With Family Smoking Status: Never smoker Tobacco Use: Non-smoker Alcohol: None Drugs: None - *Family History Maternal Family History: Family History (Last Reviewed 01/29/17 @ 12:42 by Alan Taylor MD) Son Protein S deficiency History Items: - - Family history of heart disease grandmother over age 55 Mother hx thyroid disorder Review of Systems Constitutional: Denies: Chills, Fever, Weight Change Eyes: Denies: Conjunctivae Inflammation, Double vision, Vision Change HEENT: Denies: Difficulty Hearing, Head Aches, Sinus Congestion, Sinus Drainage Cardiovascular: Denies: Chest Pain, Palpitations Respiratory: Denies: Cough, Shortness of breath at rest, Sputum production Gastrointestinal: Denies: Abdominal Pain, Nausea, Vomiting Genitourinary: Denies: Dysuria Musculoskeletal: Denies: Joint Pain, Joint Tenderness Skin: Denies: Rash, Wounds Neurological: Reports: Change in Speech, Slurred speech, Headaches, - - syncope. Denies: Focal weakness, Numbness, Tingling Psychiatric: Reports: Anxiety. Denies: Depression, Homicidal Ideations, Suicidal Ideations Hematologic/ Lymphatic: Denies: Easy Bruising, Easy Bleeding VTE Information - Inpt Only VTE Present on Admission: No VTE Mechan Device Prophylaxis: None VTE Pharm Prophylaxis ordered?: Yes Patient Problems: Active and Suspected Problems (Last Reviewed 01/29/17 @ 12:42 by Alan Taylor MD) Aphasia (Acute) - Physical Exam General: Alert, Oriented x3, Cooperative, Well developed, Well nourished HEENT: Atraumatic, PERRLA, EOMI, Normocephalic Neck: Supple, No JVD, Negative Carotid Bruits Lungs: Clear to auscultation, Normal air movement Cardiovascular: Regular rate, No murmurs Abdomen: Bowel Sounds Present, Soft, Non Tender, Obese Extremities: No edema, Capillary Refill Less than 3 Seconds Skin: No rashes, No breakdown Musculoskeletal: No Tenderness to Palpation of Joints or Extremities Neurological: Cranial nerves II-XII grossly intact, Slurred Speech, - - difficulty completing whole sentences. Psych/Mental Status: Normal Affect, Appropriate, Alert and oriented to time, place, person, mood and affect Vital Signs Temp Pulse Resp BP Pulse Ox 97.0 F L 77 16 127/75 H 98 06/01/18 13:54 06/01/18 15:30 06/01/18 15:30 06/01/18 15:30 06/01/18 15:30 Oxygen Delivery Method Room Air Weight: 293 lb 3.437 oz Body Mass Index (BMI) 42.0 Finger Stick Blood Glucose 118 Laboratory Tests Past 24 Hrs 06/01/18 06/01/18 06/01/18 13:55 13:55 13:55 WBC 9.8 RBC 4.34 Hgb 13.9 Hct 41.2 MCV 94.9 MCH 32.0 MCHC 33.7 RDW 13.4 RDW Differential 45.8 H Plt Count 298 MPV 9.6 Immature Gran % (Auto) 0.300 Neut % (Auto) 59.3 Lymph % (Auto) 27.8 [place] % (Auto) 6.8 Eos % (Auto) 5.4 H Baso % (Auto) 0.4 Absolute Neuts (auto) 5.8 Absolute Lymphs (auto) 2.72 Total Counted Not Reportable PT Cancelled INR Cancelled APTT Cancelled Sodium 141 Potassium 3.9 Chloride 110 H Carbon Dioxide 24.0 Anion Gap 7 BUN 11 Creatinine 0.87 Estim Creat Clear Calc 87.37 Est GFR (MDRD) Af Amer 90 Est GFR (MDRD) Non-Af 74 BUN/Creatinine Ratio 12.6 Glucose 121 H Calcium 8.7 Troponin I < 0.015 06/01/18 14:25 WBC RBC Hgb Hct MCV MCH MCHC RDW RDW Differential Plt Count MPV Immature Gran % (Auto) Neut % (Auto) Lymph % (Auto) [place] % (Auto) Eos % (Auto) Baso % (Auto) Absolute Neuts (auto) Absolute Lymphs (auto) Total Counted PT 12.8 INR 1.0 APTT 25.4 Sodium Potassium Chloride Carbon Dioxide Anion Gap BUN Creatinine Estim Creat Clear Calc Est GFR (MDRD) Af Amer Est GFR (MDRD) Non-Af BUN/Creatinine Ratio Glucose Calcium Troponin I POC Glucose 06/01/18 14:26 POC Glucose 118 H Assessment/Plan All Active Problems (Last Reviewed 01/29/17 @ 12:42 by Alan Taylor MD) Achilles rupture, left (Acute) Aphasia (Acute) Atypical chest pain (Acute) Menorrhagia (Resolved) 1. Syncope, aphasia - concerning for cva - CTA head and neck normal. EKG NSR. Neuro exam normal other than speech. Obtain MRI, echo, neuro consult. Provide aspirin and statin. Check NIH's. trop negative. labs unremarkable. cxr neg. 2. Hx migraines - on topamax 3. T2DM - hold orals/GLP1a - conitnue levemir + SSI 4. hx Paroxysmal afib - s/p ablations. EKG NSR. Not on rate limiting medications 5. Anxiety - continue buspar, lexapro, trazodone 6. hx Gastroparesis DVT ppx: lovenox This patient was seen by Alex Jesus PA-C under the supervision of Dr. Toth. <Yasmin Toth - Last Filed: 06/01/18 16:47> History of Present Illness The patient is a 47 year old F [] Past Medical History Medical History: Medical History (Last Reviewed 01/29/17 @ 12:42 by Alan Taylor MD) Diabetic polyneuropathy (Chronic) E11.42 Hypertension (Chronic) I10 Asthma (Chronic) J45.909 Diabetes type I (Chronic) E10.9 Paroxysmal atrial flutter (Chronic) I48.92 Paroxysmal atrial fibrillation (Chronic) I48.0 Allergies venom-honey bee [bee venom (honey bee)] Allergy (Severe, Verified 04/02/17 08:59) Anaphylaxis Influenza Virus Vaccines Allergy (Verified 04/02/17 08:59) HIVES AT INJECTION SITE bacitracin [From Triple Antibiotic] Adverse Reaction (Verified 04/02/17 08:59) blisters and itching bacitracin zinc [From Triple Antibiotic] Adverse Reaction (Verified 04/02/17 08:59) blisters and itching canagliflozin [From Invokana] Adverse Reaction (Verified 04/02/17 08:59) Nausea/Vom/Diarrhea neomycin sulfate [From Triple Antibiotic] Adverse Reaction (Verified 04/02/17 08:59) blisters and itching polymyxin B [From Triple Antibiotic] Adverse Reaction (Verified 04/02/17 08:59) blisters and itching polymyxin B sulfate [From Triple Antibiotic] Adverse Reaction (Verified 04/02/17 08:59) blisters and itching simvastatin Adverse Reaction (Verified 04/02/17 08:59) Nausea/Vom/Diarrhea - *Family History Maternal Family History: Family History (Last Reviewed 01/29/17 @ 12:42 by Alan Taylor MD) Son Protein S deficiency - Physical Exam Vital Signs Temp Pulse Resp BP Pulse Ox 98 F 84 16 104/69 98 06/01/18 16:25 06/01/18 16:25 06/01/18 16:25 06/01/18 16:25 06/01/18 16:25 Oxygen Delivery Method Room Air Weight: 129.2 kg Body Mass Index (BMI) 40.8 Finger Stick Blood Glucose 118 Laboratory Tests Past 24 Hrs 06/01/18 06/01/18 06/01/18 13:55 13:55 13:55 WBC 9.8 RBC 4.34 Hgb 13.9 Hct 41.2 MCV 94.9 MCH 32.0 MCHC 33.7 RDW 13.4 RDW Differential 45.8 H Plt Count 298 MPV 9.6 Immature Gran % (Auto) 0.300 Neut % (Auto) 59.3 Lymph % (Auto) 27.8 [place] % (Auto) 6.8 Eos % (Auto) 5.4 H Baso % (Auto) 0.4 Absolute Neuts (auto) 5.8 Absolute Lymphs (auto) 2.72 Total Counted Not Reportable PT Cancelled INR Cancelled APTT Cancelled Sodium 141 Potassium 3.9 Chloride 110 H Carbon Dioxide 24.0 Anion Gap 7 BUN 11 Creatinine 0.87 Estim Creat Clear Calc 87.37 Est GFR (MDRD) Af Amer 90 Est GFR (MDRD) Non-Af 74 BUN/Creatinine Ratio 12.6 Glucose 121 H Calcium 8.7 Troponin I < 0.015 06/01/18 14:25 WBC RBC Hgb Hct MCV MCH MCHC RDW RDW Differential Plt Count MPV Immature Gran % (Auto) Neut % (Auto) Lymph % (Auto) [place] % (Auto) Eos % (Auto) Baso % (Auto) Absolute Neuts (auto) Absolute Lymphs (auto) Total Counted PT 12.8 INR 1.0 APTT 25.4 Sodium Potassium Chloride Carbon Dioxide Anion Gap BUN Creatinine Estim Creat Clear Calc Est GFR (MDRD) Af Amer Est GFR (MDRD) Non-Af BUN/Creatinine Ratio Glucose Calcium Troponin I POC Glucose 06/01/18 14:26 POC Glucose 118 H Assessment/Plan This patient was seen in conjunction with YESSENIA Bernal. I have independently interviewed and examined the patient and reviewed pertinent historical, laboratory, and other data. Please refer to YESSENIA Bernal note for his patient's presentation, findings, and recommendations. I have reviewed and his note and concur with his documentation. CC: Right-sided weakness, expressive aphasia HPI: 47-year-old female with past medical history of type II DM, hypertension, migraine, morbid obesity, anxiety/depression, paroxysmal atrial fibrillation who comes in with a 4-day history of right-sided weakness, one day history of expressive aphasia and syncope. She reports that she has had similar presentation a year ago, did not come to the hospital, resolved on its own. She is been having these symptoms since Saturday. 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 She woke up and continue with her chills and [facility] She subsequently presented to the urgent care and was sent to the emergency room. Her main complaints at the time of being seen is expressive aphasia/dysarthria. 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 She also attributes her stress to some marital discord. She has not been sleeping well, sleeping less than 4 hours prior to the start of this episode. Denies any dizziness or chest pain or palpitations or recent illness or fever or chills PMHX: Type II DM, hypertension, migraine, morbid obesity, anxiety/depression PSHx: Status post hysterectomy, AV ablation x2, Achilles tendon repair, carpal tunnel repair FHX: History of protein S in the son, thyroid disorder in the mother SHX: Denies any use of alcohol, does not smoke, or use illicit drugs 12 point review of systems was negative except for above Physical Exam: Vitals: Blood pressure was 104/69, heart rate was 84, temperature 98, respiratory rate 16, saturating 88% on room air Gen:Morbidly bese, comfortable not pale, not jaundiced CVS:HS I +II, regular, no murmurs RESP: Clinically clear to auscultation GI: BS present and normal, soft, nontender, no palpable organs EXT:No edema AG SERVICE 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 Expresive aphasia/dysarthria, syncope, concerning for possible TIA/CVA versus functional neurologic disorder versus sleep deprivation 2. Syncope Syncope 3. Migraine 4. Type II DM 5. Morbid obesity, BMI 40.9 6. Anxiety/depression 7. Hypertension 8. Paroxysmal atrial fibrillation, CHADS-VASC score 2 Plan: Admit to PCU, stroke workup MRI brain, continue on aspirin and statin Hgb A1c, lipid profile Neuro consult PT/OT/ST to evaluate and treat Continue home insulin, Accu-Cheks with insulin sliding scale Consider polysomnogram at discharge Code Visit OBSV E&M: [id number] Initial observation care L3
[2018-06-01 17:10] LABS: Bedside Glucose 111 mg/dL (70-110)
[2018-06-01] MEDS: Atorvastatin Calcium 10 MG Tablet PO (21:58)
[2018-06-01] MEDS: Magnesium Oxide 400 MG Tablet PO (21:58)
[2018-06-01] MEDS: busPIRone 15 MG TABLET PO (21:58)
[2018-06-01] MEDS: Multivitamins,Therapeutic Tablet 1 TABLET PO (21:58)
[2018-06-01] MEDS: Pantoprazole Sodium 40 MG Tablet PO (21:59)
[2018-06-01] MEDS: Topiramate 100 MG Tablet PO (21:59)
[2018-06-01] MEDS: Insulin Lispro 100 UNIT/ML INSULN.PEN SQ (22:10)
[2018-06-01 22:16] LABS: Bedside Glucose 207 mg/dL (70-110)
[2018-06-02] VITALS (14 sets, daily range): BP systolic 97–118; BP diastolic 47–78; PULSE 66–84; RESP 16–18; TEMP 36.6–36.9; O2SAT 96–99
[2018-06-02] MEDS: traZODone 50 MG Tablet PO (00:18)
[2018-06-02] MEDS: 0.9% Normal Saline 1,000 ML 100 ML IV (02:30)
[2018-06-02 06:35] LABS: Anion Gap 6 (5-15); BUN 9 mg/dL (7-18); BUN/Creat Ratio 11.8 RATIO (10-20); Calcium,Total 8.2 mg/dL (8.5-10.1); Chloride 112 mmol/L (98-107); Cholesterol 179 mg/dL (200); Creatinine, Serum 0.76 mg/dL (0.55-1.02); EST Glomerular Filtration Rate 87 mL/min (>60); Est Glom Filt Rate - Afr Amer 105 mL/min (>60); Estimated Creatinine Clearance 100.02 ml/min; Glucose 116 mg/dL (74-106); High Density Lipoprotein 43 mg/dL; Potassium 3.6 mmol/L (3.5-5.1); Sodium Level 142 mmol/L (136-145); Triglycerides 202 mg/dL; Very Low Density Lipoprotein 40 mg/dL (5-40)
[2018-06-02 06:51] LABS: Bedside Glucose 120 mg/dL (70-110)
[2018-06-02] MEDS: Pantoprazole Sodium 40 MG Tablet PO ×2 (09:21→21:15)
[2018-06-02] MEDS: Gabapentin 100 MG Capsule PO (09:22)
[2018-06-02] MEDS: busPIRone 15 MG TABLET PO ×2 (09:22→21:15)
[2018-06-02] MEDS: Aspirin E.C. 81 MG Tablet PO (09:22)
[2018-06-02] MEDS: Escitalopram Oxalate 20 MG Tablet PO (09:22)
[2018-06-02 10:58] LABS: D-Dimer Quantitative (DVT/PE) < 0.27 FEU/ug/m (0.27-0.49)
[2018-06-02 11:08] LABS: Magnesium 1.8 mg/dL (1.6-2.6)
--- NOTE | 2018-06-02 11:46 | MRI_ITS ---
STUDY: MRI BRAIN WITHOUT CONTRAST REASON FOR EXAM: Female, 47 years old. Weakness, dizziness TECHNIQUE: Standardized multiplanar fat and water weighted pulse sequences were obtained. COMPARISON: Brain MRI 04/28/2018. FINDINGS: Normal size of the ventricles and extra-axial spaces for the patient's age. Normal white matter tracts of the supratentorial brain. Normal bilateral basal ganglia. Normal thalami. There is no extra-axial fluid accumulation. Normal flow voids within the major intracranial circulation suggesting patency by spin echo criteria. Normal sella turcica, pituitary gland, infundibular stalk, optic chiasm and hypothalamus. Normal tectal plate and pineal gland. Normal midbrain, arnel and medulla. Normal cerebellum. Normal basal cisterns. Normal bilateral temporal bones. Normal bilateral internal auditory canals. No demonstrated orbital abnormality, within the constraints of a routine brain study. Normal visualized paranasal sinuses. Normal calvarium and skull base. Normal visualized soft tissue structures. Normal visualized upper cervical spine. MRI/Brain without Contrast IMPRESSION: Normal unenhanced MRI of the brain. Electronically Signed: Ron Hairston, at 16:53 EDT Tel , Service support ,
--- NOTE | 2018-06-02 11:46 | PCM.CONS.GEN ---
Problem List (1) Speech disturbance Status: Acute (2) Migraine headache Status: Chronic Reason for Consult Date of Consultation: 06/02/18 Reason for Consultation: speech disturbances, ALAS History of Present Illness: The patient is a 47 year old F with PMH HTN, DM, DM neuropathy, paroxysmal A. fib S/P ablation, chronic migraine, morbid obesity, anxiety, asthma admitted with speech disturbances and syncope. Per patient she has been not feeling well since last Saturday about 4 to 5 days ago when she felt she was having some headaches, dizziness, was stumbling and had difficulty getting the words out, and later yesterday 06/01/2018 patient was working in the barn when she felt everything would blackout, she collapsed and found herself on the ground, denies any witnessed seizures, denies any tongue bite or urinary incontinence. Per patient did have a headache with these episodes but was not her usual migraine headaches. Per patient following the syncope episode she had difficulty in speaking and getting her words out, the speech disturbance lasted longer than usual per patient. At present per patient she is back at baseline. Per patient she had similar speech disturbances the past year for about 2-3 times. She does see Dr. Banerjee from neurology for migraine headaches and per patient she has been told that these speech symptoms could be secondary to migraines. She is currently on Topamax 100 mg p.o. twice daily and also has been started on Emgality by Dr. Banerjee a month ago per patient.. CTA head/neck done on admission reported to show no hemodynamically significant stenosis or occlusion. Past Medical History Past Medical History (Chronic Problems): Chronic Problems (Last Reviewed 01/29/17 @ 12:42 by Alan Taylor MD) Anxiety (Chronic) Migraine headache (Chronic) Diabetic polyneuropathy (Chronic) Hypertension (Chronic) Encounter for long-term (current) use of other medications (Chronic) Asthma (Chronic) Diabetes type I (Chronic) Paroxysmal atrial flutter (Chronic) Paroxysmal atrial fibrillation (Chronic) Pelvic pain (Chronic) Medical History: Medical History (Last Reviewed 01/29/17 @ 12:42 by Alan Taylor MD) Diabetic polyneuropathy (Chronic) E11.42 Hypertension (Chronic) I10 Asthma (Chronic) J45.909 Diabetes type I (Chronic) E10.9 Paroxysmal atrial flutter (Chronic) I48.92 Paroxysmal atrial fibrillation (Chronic) I48.0 Allergies venom-honey bee [bee venom (honey bee)] Allergy (Severe, Verified 04/02/17 08:59) Anaphylaxis Influenza Virus Vaccines Allergy (Verified 04/02/17 08:59) HIVES AT INJECTION SITE bacitracin [From Triple Antibiotic] Adverse Reaction (Verified 04/02/17 08:59) blisters and itching bacitracin zinc [From Triple Antibiotic] Adverse Reaction (Verified 04/02/17 08:59) blisters and itching canagliflozin [From Invokana] Adverse Reaction (Verified 04/02/17 08:59) Nausea/Vom/Diarrhea neomycin sulfate [From Triple Antibiotic] Adverse Reaction (Verified 04/02/17 08:59) blisters and itching polymyxin B [From Triple Antibiotic] Adverse Reaction (Verified 04/02/17 08:59) blisters and itching polymyxin B sulfate [From Triple Antibiotic] Adverse Reaction (Verified 04/02/17 08:59) blisters and itching simvastatin Adverse Reaction (Verified 04/02/17 08:59) Nausea/Vom/Diarrhea Home Medications: Ambulatory Orders Medication Instructions Recorded DiphenhydrAMINE [Benadryl] 25 mg PO TID PRN PRN 01/20/15 Epi Pen (for allergic rxn) 0.3 mg IM DAILY PRN 01/20/15 Escitalopram Oxalate [Lexapro] 20 mg PO DAILY 01/20/15 Glucophage 1,000 mg PO BID 01/20/15 Aspirin [Adult Low Dose Aspirin EC] 81 mg PO DAILY 02/23/15 Exenatide Microspheres [Bydureon 2 mg SQ TU 08/21/16 Pen] busPIRone [Buspar] 15 mg PO BID 08/21/16 proMETHazine tablet [Phenergan 25 mg PO PRN PRN 08/21/16 tablet] Insulin Detemir [Levemir FlexPen] 10 - 30 units SC QHS 09/19/16 cholecalciferol (vitamin D3) 10,000 unit PO QHS 01/29/17 10,000 unit capsule insulin detemir (U-100) 100 50 unit SC DAILY ml 01/29/17 unit/mL (3 mL) subcutaneous pen lovastatin 40 mg tablet 40 mg PO QHS 01/29/17 magnesium oxide 500 mg capsule 500 mg PO QHS cap 01/29/17 Albuterol Inhaler [Ventolin Hfa] 2 puff INHALATION Q4H PRN PRN #1 02/22/17 inhaler Topiramate [Topamax] 100 mg PO QHS 02/22/17 traZODone [Desyrel] 50 mg PO QHS PRN 02/22/17 Multivitamin [Multiple Vitamins] 1 ea PO QHS 04/02/17 potassium chloride ER 20 mEq 20 meq PO QHS #90 tab 08/12/17 tablet,extended release gabapentin 100 mg capsule 100 mg PO DAILY 30 Days #30 cap 01/30/18 omeprazole 40 mg capsule,delayed 40 mg PO BID 01/30/18 release Surgical History: hysterectomy, - - ablation x 2, achilles tendon repair Psychiatric History: Anxiety [employer] History: No pertinent [employer] history Lives: With Family Smoking Status: Never smoker Tobacco Use: Non-smoker Alcohol: None Drugs: None - *Family History Maternal Family History: Family History (Last Reviewed 01/29/17 @ 12:42 by Alan Taylor MD) Son Protein S deficiency History Items: - - Family history of heart disease grandmother over age 55 Mother hx thyroid disorder Review of Systems Constitutional: Reports: - - Complete ROS negative except as documented in HPI Patient Problems: Active and Suspected Problems (Last Reviewed 01/29/17 @ 12:42 by Alan Taylor MD) Aphasia (Acute) Speech disturbance (Acute) - Physical Exam General: Alert HEENT: Normocephalic Neck: Supple Lungs: Normal air movement Cardiovascular: Normal S1, Normal S2 Abdomen: Bowel Sounds Present Extremities: No cyanosis Neurological: - - consious, alert, AoAx3, CN 2-12 grossly intact, power 5/5 all 4 extremities, no sensory loss, no cerebellar signs, Reflexes + B/L B/S/T/K/A, gait deferred, fundus not visualized. Psych/Mental Status: Normal Affect Vital Signs Temp Pulse Resp BP Pulse Ox 98.2 F 84 18 113/77 99 06/02/18 08:25 06/02/18 08:25 06/02/18 08:25 06/02/18 08:25 06/02/18 08:25 Oxygen Delivery Method Room Air Weight: 129.2 kg Body Mass Index (BMI) 40.8 Finger Stick Blood Glucose 118 Intake and Output for Last 24 Hours 05/31/18 06/01/18 06/02/18 23:59 23:59 23:59 Intake Total 1248 / 1248 419 / 419 Output Total 1700 / 1700 300 / 300 Balance -452 / -452 119 / 119 Laboratory Tests Past 24 Hrs 06/01/18 06/01/18 06/01/18 13:55 13:55 13:55 WBC 9.8 RBC 4.34 Hgb 13.9 Hct 41.2 MCV 94.9 MCH 32.0 MCHC 33.7 RDW 13.4 RDW Differential 45.8 H Plt Count 298 MPV 9.6 Immature Gran % (Auto) 0.300 Neut % (Auto) 59.3 Lymph % (Auto) 27.8 [place] % (Auto) 6.8 Eos % (Auto) 5.4 H Baso % (Auto) 0.4 Absolute Neuts (auto) 5.8 Absolute Lymphs (auto) 2.72 Total Counted Not Reportable PT Cancelled INR Cancelled APTT Cancelled D-Dimer Quant (PE/DVT) Sodium 141 Potassium 3.9 Chloride 110 H Carbon Dioxide 24.0 Anion Gap 7 BUN 11 Creatinine 0.87 Estim Creat Clear Calc 87.37 Est GFR (MDRD) Af Amer 90 Est GFR (MDRD) Non-Af 74 BUN/Creatinine Ratio 12.6 Glucose 121 H Hemoglobin A1c Calcium 8.7 Magnesium Troponin I < 0.015 Triglycerides Cholesterol LDL Cholesterol VLDL Cholesterol HDL Cholesterol 06/01/18 06/01/18 06/02/18 14:12 14:25 05:35 WBC RBC Hgb Hct MCV MCH MCHC RDW RDW Differential Plt Count MPV Immature Gran % (Auto) Neut % (Auto) Lymph % (Auto) [place] % (Auto) Eos % (Auto) Baso % (Auto) Absolute Neuts (auto) Absolute Lymphs (auto) Total Counted PT 12.8 INR 1.0 APTT 25.4 D-Dimer Quant (PE/DVT) Sodium 142 Potassium 3.6 Chloride 112 H Carbon Dioxide 24.0 Anion Gap 6 BUN 9 Creatinine 0.76 Estim Creat Clear Calc 100.02 Est GFR (MDRD) Af Amer 105 Est GFR (MDRD) Non-Af 87 BUN/Creatinine Ratio 11.8 Glucose 116 H Hemoglobin A1c 8.0 H Calcium 8.2 L Magnesium Troponin I Triglycerides 202 H Cholesterol 179 LDL Cholesterol 96 VLDL Cholesterol 40 HDL Cholesterol 43 04/22/19 04/22/19 05:35 10:40 WBC RBC Hgb Hct MCV MCH MCHC RDW RDW Differential Plt Count MPV Immature Gran % (Auto) Neut % (Auto) Lymph % (Auto) [place] % (Auto) Eos % (Auto) Baso % (Auto) Absolute Neuts (auto) Absolute Lymphs (auto) Total Counted PT INR APTT D-Dimer Quant (PE/DVT) < 0.27 L Sodium Potassium Chloride Carbon Dioxide Anion Gap BUN Creatinine Estim Creat Clear Calc Est GFR (MDRD) Af Amer Est GFR (MDRD) Non-Af BUN/Creatinine Ratio Glucose Hemoglobin A1c Calcium Magnesium 1.8 Troponin I Triglycerides Cholesterol LDL Cholesterol VLDL Cholesterol HDL Cholesterol POC Glucose 06/02/18 06/01/18 06/01/18 06:43 22:02 17:05 POC Glucose 120 H 207 H 111 H 06/01/18 14:26 POC Glucose 118 H Assessment/Plan All Active Problems (Last Reviewed 01/29/17 @ 12:42 by Alan Taylor MD) Achilles rupture, left (Acute) Aphasia (Acute) Speech disturbance (Acute) Atypical chest pain (Acute) Menorrhagia (Resolved) The patient is a 47 year old F with PMH HTN, DM, DM neuropathy, paroxysmal A. fib S/P ablation, chronic migraine, morbid obesity, anxiety, asthma admitted with speech disturbances and syncope. Per patient she has been not feeling well since last Saturday about 4 to 5 days ago when she felt she was having some headaches, dizziness, was stumbling and had difficulty getting the words out, and later yesterday 06/01/2018 patient was working in the barn when she felt everything would blackout, she collapsed and found herself on the ground, denies any witnessed seizures, denies any tongue bite or urinary incontinence. Per patient did have a headache with these episodes but was not her usual migraine headaches. Per patient following the syncope episode she had difficulty in speaking and getting her words out, the speech disturbance lasted longer than usual per patient. At present per patient she is back at baseline. Per patient she had similar speech disturbances the past year for about 2-3 times. She does see Dr. Banerjee from neurology for migraine headaches and per patient she has been told that these speech symptoms could be secondary to migraines. She is currently on Topamax 100 mg p.o. twice daily and also has been started on Emgality by Dr. Banerjee a month ago per patient. CTA head/neck done on admission reported to show no hemodynamically significant stenosis or occlusion. Impression R/O stroke-less likely vs possible complicated migraine Plan -On ASA and statins at baseline -Check MRI brain w/o contrast -Check EEG -Stroke risk factors discussed and stroke education provided -History of A. fib?further management per hospitalist team and cardiology ?Patient on Topamax for migraine prophylaxis and has been started on Emgality by Dr. Banerjee her neurologist. Counseled patient to discuss with Dr. Banerjee if changes can be made to Topamax as outpatient, since patient has been complaining of recurrent speech problems along with cognitive issues. She understands the same. ?PT/OT/ST ?Fall precautions ?GI/DVT prophylaxis ?Further medical management per hospitalist team ?Please call with questions if any ?Follow-up with Dr. Banerjee from neurology in 1 to 2 weeks ?Thank you for allowing us participant in patient's current management Code Visit Inpatient E&M: [id number] Init Hosp L3
[2018-06-02 11:51] LABS: Bedside Glucose 226 mg/dL (70-110)
[2018-06-02] MEDS: Acetaminophen 325 MG Tablet 650 MG PO (13:02)
[2018-06-02] MEDS: Insulin Lispro 100 UNIT/ML INSULN.PEN SQ ×3 (13:05→21:19)
--- NOTE | 2018-06-02 14:20 | PN_ITS ---
<Alex Jesus - Last Filed: 06/02/18 13:59> Patient Problems: Active and Suspected Problems (Last Reviewed 01/29/17 @ 12:42 by Alan Taylor MD) Aphasia (Acute) Speech disturbance (Acute) Subjective: Initially when examined patient reported that her symptoms had all completely resolved. She stated she felt completely back to normal and did not feel any new symptoms, and wanted to go home. Later she had a return of mild headache and tingling in her arm. She had an episode of non sustained vtach on the monitor. - Physical Exam General: Alert, Oriented x3, Cooperative HEENT: Atraumatic, PERRLA, EOMI, Normocephalic Neck: Supple, No JVD, Negative Carotid Bruits Lungs: Clear to auscultation, Normal air movement Cardiovascular: Regular rate, No murmurs Abdomen: Bowel Sounds Present, Soft, Non Tender, Obese Extremities: No edema, Capillary Refill Less than 3 Seconds Skin: No rashes, No breakdown Musculoskeletal: No Tenderness to Palpation of Joints or Extremities Neurological: Cranial nerves II-XII grossly intact Psych/Mental Status: Normal Affect, Appropriate Vital Signs Temp Pulse Resp BP Pulse Ox 98.2 F 83 18 108/64 96 06/02/18 08:25 06/02/18 12:00 06/02/18 10:00 06/02/18 10:00 06/02/18 10:00 Oxygen Delivery Method Room Air Weight: 284 lb 13.396 oz Body Mass Index (BMI) 40.8 Finger Stick Blood Glucose 118 Intake and Output for Last 24 Hours 05/31/18 06/01/18 06/02/18 23:59 23:59 23:59 Intake Total 1248 / 1248 1354 / 1354 Output Total 1700 / 1700 1350 / 1350 Balance -452 / -452 Laboratory Tests Past 24 Hrs 06/01/18 06/01/18 06/01/18 13:55 13:55 13:55 WBC 9.8 RBC 4.34 Hgb 13.9 Hct 41.2 MCV 94.9 MCH 32.0 MCHC 33.7 RDW 13.4 RDW Differential 45.8 H Plt Count 298 MPV 9.6 Immature Gran % (Auto) 0.300 Neut % (Auto) 59.3 Lymph % (Auto) 27.8 [place] % (Auto) 6.8 Eos % (Auto) 5.4 H Baso % (Auto) 0.4 Absolute Neuts (auto) 5.8 Absolute Lymphs (auto) 2.72 Total Counted Not Reportable PT Cancelled INR Cancelled APTT Cancelled D-Dimer Quant (PE/DVT) Sodium 141 Potassium 3.9 Chloride 110 H Carbon Dioxide 24.0 Anion Gap 7 BUN 11 Creatinine 0.87 Estim Creat Clear Calc 87.37 Est GFR (MDRD) Af Amer 90 Est GFR (MDRD) Non-Af 74 BUN/Creatinine Ratio 12.6 Glucose 121 H Hemoglobin A1c Calcium 8.7 Magnesium Troponin I < 0.015 Triglycerides Cholesterol LDL Cholesterol VLDL Cholesterol HDL Cholesterol 06/01/18 06/01/18 06/02/18 14:12 14:25 05:35 WBC RBC Hgb Hct MCV MCH MCHC RDW RDW Differential Plt Count MPV Immature Gran % (Auto) Neut % (Auto) Lymph % (Auto) [place] % (Auto) Eos % (Auto) Baso % (Auto) Absolute Neuts (auto) Absolute Lymphs (auto) Total Counted PT 12.8 INR 1.0 APTT 25.4 D-Dimer Quant (PE/DVT) Sodium 142 Potassium 3.6 Chloride 112 H Carbon Dioxide 24.0 Anion Gap 6 BUN 9 Creatinine 0.76 Estim Creat Clear Calc 100.02 Est GFR (MDRD) Af Amer 105 Est GFR (MDRD) Non-Af 87 BUN/Creatinine Ratio 11.8 Glucose 116 H Hemoglobin A1c 8.0 H Calcium 8.2 L Magnesium Troponin I Triglycerides 202 H Cholesterol 179 LDL Cholesterol 96 VLDL Cholesterol 40 HDL Cholesterol 43 06/02/18 06/02/18 05:35 10:40 WBC RBC Hgb Hct MCV MCH MCHC RDW RDW Differential Plt Count MPV Immature Gran % (Auto) Neut % (Auto) Lymph % (Auto) [place] % (Auto) Eos % (Auto) Baso % (Auto) Absolute Neuts (auto) Absolute Lymphs (auto) Total Counted PT INR APTT D-Dimer Quant (PE/DVT) < 0.27 L Sodium Potassium Chloride Carbon Dioxide Anion Gap BUN Creatinine Estim Creat Clear Calc Est GFR (MDRD) Af Amer Est GFR (MDRD) Non-Af BUN/Creatinine Ratio Glucose Hemoglobin A1c Calcium Magnesium 1.8 Troponin I Triglycerides Cholesterol LDL Cholesterol VLDL Cholesterol HDL Cholesterol POC Glucose 06/02/18 06/02/18 06/01/18 11:48 06:43 22:02 POC Glucose 226 H 120 H 207 H 06/01/18 06/01/18 17:05 14:26 POC Glucose 111 H 118 H Medical Necessity - Tobacco Use Smoking Status: Never smoker Tobacco Use: Non-smoker Assessment/Plan All Active Problems (Last Reviewed 01/29/17 @ 12:42 by Alan Taylor MD) Achilles rupture, left (Acute) Aphasia (Acute) Speech disturbance (Acute) Atypical chest pain (Acute) Menorrhagia (Resolved) 1. Syncope, aphasia -8 beats vtach on monitor. -Neuro following -Obtain EEG -MRI readout pending, prelim does not appear to show stroke -Possibly complex migraine vs medication reaction -possibly needs topamax weaned by her neurologist -Echo pending -D dimer negative 2. Hx migraines - as above 3. T2DM - hold orals/GLP1a - continue levemir + SSI. A1C 8.2 4. hx Paroxysmal afib - s/p ablations. EKG NSR. Not on rate limiting medications. -as above - 8 beats vtach, continue to monitor, possibly needs holter monitor -Mag 1.8 - will supplement -trop negative. -Chadvasc 3 for female, HTN hx, diabetes hx 5. Anxiety - continue buspar, lexapro, trazodone 6. hx Gastroparesis DVT ppx: lovenox This patient was seen by Alex Jesus PA-C under the supervision of Dr. Esparza <Chaz Esparza - Last Filed: 06/02/18 14:27> - Physical Exam Vital Signs Temp Pulse Resp BP Pulse Ox 98.2 F 66 18 110/75 98 06/02/18 08:25 06/02/18 14:00 06/02/18 14:00 06/02/18 14:00 06/02/18 14:00 Oxygen Delivery Method Room Air Weight: 129.2 kg Body Mass Index (BMI) 40.8 Finger Stick Blood Glucose 118 Intake and Output for Last 24 Hours 05/31/18 06/01/18 06/02/18 23:59 23:59 23:59 Intake Total 1248 / 1248 1354 / 1354 Output Total 1700 / 1700 1350 / 1350 Balance -452 / -452 4 / 4 Laboratory Tests Past 24 Hrs 06/01/18 06/01/18 06/01/18 13:55 14:12 14:25 PT 12.8 INR 1.0 APTT 25.4 D-Dimer Quant (PE/DVT) Sodium 141 Potassium 3.9 Chloride 110 H Carbon Dioxide 24.0 Anion Gap 7 BUN 11 Creatinine 0.87 Estim Creat Clear Calc 87.37 Est GFR (MDRD) Af Amer 90 Est GFR (MDRD) Non-Af 74 BUN/Creatinine Ratio 12.6 Glucose 121 H Hemoglobin A1c 8.0 H Calcium 8.7 Magnesium Troponin I < 0.015 Triglycerides Cholesterol LDL Cholesterol VLDL Cholesterol HDL Cholesterol 06/02/18 06/02/18 06/02/18 05:35 05:35 10:40 PT INR APTT D-Dimer Quant (PE/DVT) < 0.27 L Sodium 142 Potassium 3.6 Chloride 112 H Carbon Dioxide 24.0 Anion Gap 6 BUN 9 Creatinine 0.76 Estim Creat Clear Calc 100.02 Est GFR (MDRD) Af Amer 105 Est GFR (MDRD) Non-Af 87 BUN/Creatinine Ratio 11.8 Glucose 116 H Hemoglobin A1c Calcium 8.2 L Magnesium 1.8 Troponin I Triglycerides 202 H Cholesterol 179 LDL Cholesterol 96 VLDL Cholesterol 40 HDL Cholesterol 43 POC Glucose 06/02/18 06/02/18 06/01/18 11:48 06:43 22:02 POC Glucose 226 H 120 H 207 H 06/01/18 06/01/18 17:05 14:26 POC Glucose 111 H 118 H Assessment/Plan This patient was seen in conjunction with Alex Jesus PA-C . I have independently interviewed and examined the patient and reviewed pertinent historical, laboratory, and other data. Please refer to Alex Jesus PA-C note for details of this patient's presentation, findings, and recommendations. I have reviewed Alex Jesus PA-C note and concur with documented findings. In brief, patient is a 87-year-old lady admitted with multiple complaints including syncopal episode and aphasia admitted to monitored bed where patient is currently undergoing further workup. Telemetry monitoring did demonstrate 8 beat runs of nonsustained VT Physical Examination: GENERAL: cooperative HEENT: Atraumatic; EYES; Anicteric, NECK; supple, normal thyroid, . RESPIRATORY: Diminished to auscultation bilaterally, CARDIOVASCULAR: Regular S1 S2, GI: soft, non-tender, normoactive bowel sounds, NEURO: Awake; no lateralizing signs. SKIN: No Rash PSYCH; Normal affect Assessment: 1. Syncopal episode 2. Complex migraine 3. Nonsustained VT 4. History of paroxysmal A. fib status post ablation 5. Anxiety disorder 6. Diabetes mellitus type II with complications including gastroparesis 7. Obesity with BMI of 40.9 Recommendations: 1. I have discussed the results of my overview and impressions with the patient 2. Options for management were reviewed Code Visit OBSV E&M: [id number] Observ/hosp same date L3
[2018-06-02 17:10] LABS: Bedside Glucose 234 mg/dL (70-110)
[2018-06-02] MEDS: Multivitamins,Therapeutic Tablet 1 TABLET PO (21:15)
[2018-06-02] MEDS: Magnesium Oxide 400 MG Tablet PO (21:15)
[2018-06-02] MEDS: Topiramate 100 MG Tablet PO (21:15)
[2018-06-02] MEDS: Atorvastatin Calcium 10 MG Tablet PO (21:15)
[2018-06-02 21:26] LABS: Bedside Glucose 259 mg/dL (70-110)
[2018-06-03] VITALS (7 sets, daily range): BP systolic 108–115; BP diastolic 58–65; PULSE 74–85; RESP 16–17; TEMP 36.2–36.7; O2SAT 97–99
[2018-06-03] MEDS: Acetaminophen 325 MG Tablet 650 MG PO (06:42)
[2018-06-03] MEDS: Insulin Lispro 100 UNIT/ML INSULN.PEN SQ ×2 (06:43→13:13)
[2018-06-03 06:45] LABS: Bedside Glucose 204 mg/dL (70-110)
[2018-06-03] MEDS: busPIRone 15 MG TABLET PO (09:48)
[2018-06-03] MEDS: Pantoprazole Sodium 40 MG Tablet PO (09:51)
--- NOTE | 2018-06-03 11:19 | PCM.CONS.C ---
Problem List (1) Syncope Status: Acute Reason for Consult Date of Consultation: 06/02/18 Reason for Consultation: Syncope, nonsustained V. tach on telemetry History of Present Illness: The patient is a 47 year old F with pmhx of migraine, paroxysmal Afib s/p ablation, DMt2, gastroparesis, morbid obesity, anxiety, asthma who presents to the ER with difficulty speaking. She first started feeling unwell on Saturday. Patient states that she was feeling dizzy since Saturday and was having difficulty speaking on and off since then. Day before yesterday she passed out. She felt it coming prior to the actual event. She states that all of a sudden it became black and then she found herself on the floor. She states that over the last year she has had short runs of her heart fluttering. However this this was not significant compared to what she used to feel prior to her A. fib ablation. At that time she would feel her heart fluttering but also she was passing out more often and was feeling significantly more dizzy. This time when she woke up she was having difficulty speaking and she has been worked up for a stroke. Neurology feels that she may be having complex migraine. An EEG has also been ordered. On telemetry patient had one run of nonsustained V. tach lasting about 10 beats. She was symptomatic at this time and felt her heart fluttering. She did not have the sensation prior to passing out. Past Medical History Allergies/Adverse Reactions: Allergies venom-honey bee [bee venom (honey bee)] Allergy (Severe, Verified 04/02/17 08:59) Anaphylaxis Influenza Virus Vaccines Allergy (Verified 04/02/17 08:59) HIVES AT INJECTION SITE bacitracin [From Triple Antibiotic] Adverse Reaction (Verified 04/02/17 08:59) blisters and itching bacitracin zinc [From Triple Antibiotic] Adverse Reaction (Verified 04/02/17 08:59) blisters and itching canagliflozin [From Invokana] Adverse Reaction (Verified 04/02/17 08:59) Nausea/Vom/Diarrhea neomycin sulfate [From Triple Antibiotic] Adverse Reaction (Verified 04/02/17 08:59) blisters and itching polymyxin B [From Triple Antibiotic] Adverse Reaction (Verified 04/02/17 08:59) blisters and itching polymyxin B sulfate [From Triple Antibiotic] Adverse Reaction (Verified 02/20/18 08:59) blisters and itching simvastatin Adverse Reaction (Verified 04/02/17 08:59) Nausea/Vom/Diarrhea Home Medications: Ambulatory Orders Medication Instructions Recorded DiphenhydrAMINE [Benadryl] 25 mg PO TID PRN PRN 01/20/15 Epi Pen (for allergic rxn) 0.3 mg IM DAILY PRN 01/20/15 Escitalopram Oxalate [Lexapro] 20 mg PO DAILY 01/20/15 Glucophage 1,000 mg PO BID 01/20/15 Aspirin [Adult Low Dose Aspirin EC] 81 mg PO DAILY 02/23/15 Exenatide Microspheres [Bydureon 2 mg SQ TU 08/21/16 Pen] busPIRone [Buspar] 15 mg PO BID 08/21/16 proMETHazine tablet [Phenergan 25 mg PO PRN PRN 08/21/16 tablet] Insulin Detemir [Levemir FlexPen] 10 - 30 units SC QHS 09/19/16 cholecalciferol (vitamin D3) 10,000 unit PO QHS 01/29/17 10,000 unit capsule insulin detemir (U-100) 100 50 unit SC DAILY ml 01/29/17 unit/mL (3 mL) subcutaneous pen lovastatin 40 mg tablet 40 mg PO QHS 01/29/17 magnesium oxide 500 mg capsule 500 mg PO QHS cap 01/29/17 Albuterol Inhaler [Ventolin Hfa] 2 puff INHALATION Q4H PRN PRN #1 02/22/17 inhaler Topiramate [Topamax] 100 mg PO QHS 02/22/17 traZODone [Desyrel] 50 mg PO QHS PRN 02/22/17 Multivitamin [Multiple Vitamins] 1 ea PO QHS 04/02/17 potassium chloride ER 20 mEq 20 meq PO QHS #90 tab 08/12/17 tablet,extended release gabapentin 100 mg capsule 100 mg PO DAILY 30 Days #30 cap 01/30/18 omeprazole 40 mg capsule,delayed 40 mg PO BID 01/30/18 release Past Medical History (Chronic Problems): Chronic Problems (Last Reviewed 01/29/17 @ 12:42 by Alan Taylor MD) Anxiety (Chronic) Migraine headache (Chronic) Diabetic polyneuropathy (Chronic) Hypertension (Chronic) Encounter for long-term (current) use of other medications (Chronic) Asthma (Chronic) Diabetes type I (Chronic) Paroxysmal atrial flutter (Chronic) Paroxysmal atrial fibrillation (Chronic) Pelvic pain (Chronic) Surgical History: hysterectomy, - - ablation x 2, achilles tendon repair Psychiatric History: Anxiety 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: 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 history - *Family History Maternal Family History: Family History (Last Reviewed 01/29/17 @ 12:42 by Alan Taylor MD) Son Protein S deficiency History Items: - - Family history of heart disease grandmother over age 55 Mother hx thyroid disorder Lives: With Family Smoking Status: Never smoker Tobacco Use: Non-smoker Alcohol: None Drugs: None Review of Systems - Review of Systems General: Denies: Fever, Night Sweats, Fatigue Cardiovascular: Denies: Chest Discomfort, Shortness of Breath, Orthopnea, PND, Peripheral Edema Respiratory: Denies: Cough, Sputum Production, Hemoptysis Gastrointestinal: Denies: Hematemesis, Hematochezia, Melena Genitourinary: Denies: Dysuria, Hematuria Skin: Denies: Rash Neurological: Reports: Dizziness Objective: Vital Signs Temp Pulse Resp BP Pulse Ox 98.0 F 80 17 108/58 L 97 06/03/18 07:42 06/03/18 07:42 06/03/18 07:42 06/03/18 07:42 06/03/18 07:42 Oxygen Delivery Method Room Air Weight: 281 lb 12.012 oz Body Mass Index (BMI) 40.8 Finger Stick Blood Glucose 118 Intake and Output for Last 24 Hours 06/01/18 06/02/18 06/03/18 23:59 23:59 23:59 Intake Total 1248 / 1248 2004 240 / 240 Output Total 1700 / 1700 2650 / 2650 400 / 400 Balance -452 / -452 -645 / -645 -160 / -160 General: Awake, Alert, Oriented x 3 HEENT: EOMI, Sclera Non Icteric Neck: Supple, Good ROM, No Lymph Node Enlargement Lungs: Clear to auscultation Cardiovascular: Regular Rhythm, Normal S1, Normal S2, No Murmurs, No Rubs, No Gallops Vascular: No Carotid Bruits, Normal Radial Pulses Abdomen: Bowel Sounds Present, Soft, Non Tender, No HSM Extremities: No Cyanosis, No Clubbing, No edema Skin: No Rashes Neurological: No Focal Motor or Sensory Deficit Psych/Mental Status: Appropriate Rhythm: EKG: ECHO: Stress Test: Cardiac Cath: PCI: CT Surgery: Holter monitor: EPS: PPM: CXR: Chest CT Scan: Assessment/Plan 1. Syncope: This does not appear to be cardiac at this time. It could be related to her complex migraine. However it would be reasonable to further evaluate this from a cardiac standpoint with at least a 30-day event monitor. I discussed adding metoprolol. Patient said that she has been on metoprolol tartrate 12.5 mg p.o. twice daily in the past and her blood pressure was low when she has required IV fluids for that. She is not very sure if she was having significant symptoms from the hypotension. I suggested that we try metoprolol succinate 25 mg p.o. nightly and see if she is able to tolerate that. We will go ahead and start that when she is an inpatient and at the time of discharge she will need a 30-day event monitor ordered. 2. Nonsustained V. tach: Her electrolytes are unremarkable and her echocardiogram shows normal LV function. We are starting metoprolol succinate as described. We are also ordering a 30-day event monitor upon discharge.
--- NOTE | 2018-06-03 11:43 | EKG12_ITS ---
Test Reason : PALPITATIONS Blood Pressure : / mmHG Vent. Rate : 077 BPM Atrial Rate : 077 BPM P-R Int : 174 ms QRS Dur : 082 ms QT Int : 382 ms P-R-T Axes : 042 018 034 degrees QTc Int : 432 ms Sinus rhythm with occasional Premature ventricular complexes Otherwise normal ECG When compared with ECG of 01-JUN-2018 14:21, MANUAL COMPARISON REQUIRED, DATA IS UNCONFIRMED Confirmed by CLEVELAND MCKAY ([id number]), production editor EDITA CHANDRA ([id number]) on 06/05/2018 11:21:58 AM Referred By: LUCIO Confirmed By:CLEVELAND MCKAY
[2018-06-03 12:01] LABS: Bedside Glucose 289 mg/dL (70-110)
--- NOTE | 2018-06-03 12:27 | DCINST_ITS ---
- Discharge Diagnoses Current Active Problems: Current Active and Chronic Problems (Last Reviewed 01/29/17 @ 12:42 by Alan Taylor MD) Anxiety (Chronic) Aphasia (Acute) Speech disturbance (Acute) Syncope (Acute) You will use the following diet at home:: Calorie/Carbohydrate Controlled (specify 1200, 1400, etc) - 1800 carlos / day, Cardiac Your food should be the consistency of: Regular Your liquids should be the consistency of: Regular/Thin Discharge Activity: Return to Normal Activity Allergies/Adverse Reactions: Allergies venom-honey bee [bee venom (honey bee)] Allergy (Severe, Verified 04/02/17 08:59) Anaphylaxis Influenza Virus Vaccines Allergy (Verified 04/02/17 08:59) HIVES AT INJECTION SITE bacitracin [From Triple Antibiotic] Adverse Reaction (Verified 04/02/17 08:59) blisters and itching bacitracin zinc [From Triple Antibiotic] Adverse Reaction (Verified 04/02/17 08:59) blisters and itching canagliflozin [From Invokana] Adverse Reaction (Verified 04/02/17 08:59) Nausea/Vom/Diarrhea neomycin sulfate [From Triple Antibiotic] Adverse Reaction (Verified 04/02/17 08:59) blisters and itching polymyxin B [From Triple Antibiotic] Adverse Reaction (Verified 04/02/17 08:59) blisters and itching polymyxin B sulfate [From Triple Antibiotic] Adverse Reaction (Verified 04/02/17 08:59) blisters and itching simvastatin Adverse Reaction (Verified 04/02/17 08:59) Nausea/Vom/Diarrhea Medications to take at Discharge DiphenhydrAMINE [Benadryl] 25 mg PO TID PRN PRN 01/20/15 Epi Pen (for allergic rxn) 0.3 mg IM DAILY PRN 01/20/15 Escitalopram Oxalate [Lexapro] 20 mg PO DAILY 01/20/15 Glucophage 1,000 mg PO BID 01/20/15 Aspirin [Adult Low Dose Aspirin EC] 81 mg PO DAILY 02/23/15 Exenatide Microspheres [Bydureon Pen] 2 mg SQ TU 08/21/16 busPIRone [Buspar] 15 mg PO BID 08/21/16 proMETHazine tablet [Phenergan tablet] 25 mg PO PRN PRN 08/21/16 Insulin Detemir [Levemir FlexPen] 10 - 30 units SC QHS 09/19/16 cholecalciferol (vitamin D3) 10,000 unit capsule 10,000 unit PO QHS 01/29/17 insulin detemir (U-100) 100 unit/mL (3 mL) subcutaneous pen 50 unit SC DAILY ml 01/29/17 lovastatin 40 mg tablet 40 mg PO QHS 01/29/17 magnesium oxide 500 mg capsule 500 mg PO QHS cap 01/29/17 Albuterol Inhaler [Ventolin Hfa] 2 puff INHALATION Q4H PRN PRN #1 inhaler 02/22/17 Topiramate [Topamax] 100 mg PO QHS 02/22/17 traZODone [Desyrel] 50 mg PO QHS PRN 02/22/17 Multivitamin [Multiple Vitamins] 1 ea PO QHS 04/02/17 potassium chloride ER 20 mEq tablet,extended release 20 meq PO QHS #90 tab 08/12/17 gabapentin 100 mg capsule 100 mg PO DAILY 30 Days #30 cap 01/30/18 omeprazole 40 mg capsule,delayed release 40 mg PO BID 01/30/18 Metoprolol(XL)Succ [Toprol Xl (Beta Hanna)] 25 mg PO QHS #30 tablet 06/03/18 The following prescriptions were given: Metoprolol(XL)Succ [Toprol Xl (Beta Hanna)] 25 mg PO QHS #30 tablet Orders to be completed after discharge: 30-Day Event Recorder [[facility]] Time Frame: 1 Day, Location: None Selected Primary Care Physician: Kasey Lewis MD [Primary Care Provider] - Please follow up with your Primary Care Physician in: 2 weeks Test Results: Test results from this visit will be discussed in further detail at your follow- up appointment, if applicable. Please Follow Up With: Jenn Linton MD When: 3-4 weeks Please Follow Up With: Alan Taylor MD When: Call for appointment Proposed Discharge Date: 06/03/18
--- NOTE | 2018-06-03 13:17 | CHAPLAIN ---
Type of Pastoral Visit _x__ Initial Visit ___ Follow-up Visit ___ On-call Visit ___ General Patient Visit ___ Spiritual Assessment ___ Family Conference ___ Bereavement ___ Rapid Response ___ Code Blue ___ Other (describe below) Pastoral Care Referral From _x__ Patient ___ Family ___ Nurse ___ Physician ___ Premises Technician ___ Security Systems Specialist ___ Other (describe below) Sacrament/Intervention _x__ Active listening ___ Anointing ___ Adventism ___ Bereavement ___ Communion ___ Melissa exploration ___ _x__ Life review ___ Prayer ___ Reconciliation ___ Sacrament of Sick _x__ Supportive presence ___ Wedding ___ Other (describe below) Pastoral Comments
--- NOTE | 2018-06-03 13:49 | EEG ---
- Electroencephalogram Date of service 06/03/2018 History EEG is being done in this 47 yr F to rule out seizures EEG Description: This is an 18 channel EEG with 10-20 lead placement system. Bipolar montages and Referential montages were reviewed. Photic stimulation and Hyperventilation were performed. The posterior dominant rhythm is 10 HZ synchronous, symmetric, reacting to eye opening and closing. Photo stimulation elicited normal driving response but no abnormal photoparoxysmal response, Hyperventilation did not elicit any abnormal photoparoxysmal response. Sleep was identified. There is no abnormal background slowing noted. T5 artefact is seen during the record. There was no epileptiform discharges or electrographic seizures noted during this recording. EEG Interpretation This is a normal awake and asleep EEG. There is no epileptiform discharges or electrographic seizures noted during the record.
--- NOTE | 2018-06-03 15:14 | PCM.DC.SUM ---
<Alex Jesus - Last Filed: 06/03/18 15:14> Discharge Date and Diagnosis Date of Admission: 06/01/18 Date of Discharge: 06/03/18 - Primary Discharge Diagnosis Syncope, unclear etiology Dysarthria, aphasia 2/2 complex migraine Nonsustained V Tach Paroxysmal Afib s/p ablation Anxiety Gastroparesis Type 2 DM - Secondary Discharge Diagnosis Chronic Problems (Last Reviewed 01/29/17 @ 12:42 by Alan Taylor MD) Anxiety (Chronic) Migraine headache (Chronic) Diabetic polyneuropathy (Chronic) Hypertension (Chronic) Encounter for long-term (current) use of other medications (Chronic) Asthma (Chronic) Diabetes type I (Chronic) Paroxysmal atrial flutter (Chronic) Paroxysmal atrial fibrillation (Chronic) Pelvic pain (Chronic) Hospital Course and Treatment Imaging Results: CT/CTA Head W/WO Contrast IMPRESSION: Normal bilateral cervical carotid and vertebral arteries. CT/CTA Neck W/WO Contrast IMPRESSION: Normal bilateral cervical carotid and vertebral arteries. CXR: IMPRESSION: No acute cardiopulmonary pathology seen. MRI/Brain without Contrast IMPRESSION: Normal unenhanced MRI of the brain. Echo: EF 60%, no ASD, normal LV function EEG Interpretation This is a normal awake and asleep EEG. There is no epileptiform discharges or electrographic seizures noted during the record. Consults: Shaila - Neuro Carri - Cardio Operations: None Procedures: 2-D Echocardiogram, Electroencephalogram Summary of Care Provided: Hospital course: The patient is a 47 year old F with pmhx of migraines, DMt2, gastroparesis, anxiety, htn, DMt2, Paroxysmal afib s/p ablations who presented to the ED with c/o sycopal episode that day and several days of expressive aphasia. CTA head and neck obtained in the ER were negative, labs were unremarkable, EKG showed NSR. She was admitted for concern for CVA or cardiac event. She was kept on tele. That night she had 8 beats of vtach on tele. Cardiology was consulted. MRI was negative. EEG was negative. Neuro felt the speech changes were possibly a complex migraine or medication reaction (topamax). Cardiology recommended a 30 days event monitor and started metoprolol for the vtach. Her symptoms resolved. She was discharged home in stable condition. She will go today to get the 30 days monitor, and will need to follow up with neuro in 3-4 weeks, cardiology as directed, and with her PCP in 1-2 weeks. This patient was seen by Alex Jesus PA-C under the supervision of Doctor Isaias. [] - Physical Exam General: Alert, Oriented x3, Cooperative HEENT: Atraumatic, PERRLA, EOMI, Normocephalic Neck: Supple, No JVD, Negative Carotid Bruits Lungs: Clear to auscultation, Normal air movement Cardiovascular: Regular rate, No murmurs Abdomen: Bowel Sounds Present, Soft, Non Tender Extremities: No edema, Capillary Refill Less than 3 Seconds Skin: No rashes, No breakdown Musculoskeletal: No Tenderness to Palpation of Joints or Extremities Neurological: Cranial nerves II-XII grossly intact Psych/Mental Status: Normal Affect, Appropriate Vital Signs Temp Pulse Resp BP Pulse Ox 97.1 F L 81 17 115/65 97 06/03/18 11:40 06/03/18 11:40 06/03/18 11:40 06/03/18 11:40 06/03/18 11:40 Oxygen Delivery Method Room Air Weight: 281 lb 12.012 oz Body Mass Index (BMI) 40.8 Finger Stick Blood Glucose 118 Intake and Output for Last 24 Hours 06/01/18 06/02/18 06/03/18 23:59 23:59 23:59 Intake Total 1248 / 1248 2004 740 / 740 Output Total 1700 / 1700 2650 / 2650 1500 / 1500 Balance -452 / -452 -645 / -645 -760 / -760 POC Glucose 06/03/18 06/03/18 06/02/18 11:53 06:38 21:18 POC Glucose 289 H 204 H 259 H 06/02/18 16:17 POC Glucose 234 H Discharge Diet: Low fat/ Low Cholesterol, 1800 Calorie Control Diet, 2000 mg Sodium Diet Discharge Activity: Return to Normal Activity Home Medications: Medications to take at Discharge DiphenhydrAMINE [Benadryl] 25 mg PO TID PRN PRN 01/20/15 Epi Pen (for allergic rxn) 0.3 mg IM DAILY PRN 01/20/15 Escitalopram Oxalate [Lexapro] 20 mg PO DAILY 01/20/15 Glucophage 1,000 mg PO BID 01/20/15 Aspirin [Adult Low Dose Aspirin EC] 81 mg PO DAILY 02/23/15 Exenatide Microspheres [Bydureon Pen] 2 mg SQ TU 08/21/16 busPIRone [Buspar] 15 mg PO BID 08/21/16 proMETHazine tablet [Phenergan tablet] 25 mg PO PRN PRN 08/21/16 Insulin Detemir [Levemir FlexPen] 10 - 30 units SC QHS 09/19/16 cholecalciferol (vitamin D3) 10,000 unit capsule 10,000 unit PO QHS 01/29/17 insulin detemir (U-100) 100 unit/mL (3 mL) subcutaneous pen 50 unit SC DAILY ml 01/29/17 lovastatin 40 mg tablet 40 mg PO QHS 01/29/17 magnesium oxide 500 mg capsule 500 mg PO QHS cap 01/29/17 Albuterol Inhaler [Ventolin Hfa] 2 puff INHALATION Q4H PRN PRN #1 inhaler 02/22/17 Topiramate [Topamax] 100 mg PO QHS 02/22/17 traZODone [Desyrel] 50 mg PO QHS PRN 02/22/17 Multivitamin [Multiple Vitamins] 1 ea PO QHS 04/02/17 potassium chloride ER 20 mEq tablet,extended release 20 meq PO QHS #90 tab 08/12/17 gabapentin 100 mg capsule 100 mg PO DAILY 30 Days #30 cap 01/30/18 omeprazole 40 mg capsule,delayed release 40 mg PO BID 01/30/18 Metoprolol(XL)Succ [Toprol Xl (Beta Hanna)] 25 mg PO QHS #30 tablet 06/03/18 Following Prescrptions Were Given to Patient: Metoprolol(XL)Succ [Toprol Xl (Beta Hanna)] 25 mg PO QHS #30 tablet Other Amb Orders: 30-Day Event Recorder [[facility]] Time Frame: 1 Day, Location: None Selected Primary Care Physician: Kasey Lewis MD [Primary Care Provider] - Please follow up with your Primary Care Physician in: 2 weeks Please Follow Up With: Jenn Linton MD When: 3-4 weeks Please Follow Up With: Alan Taylor MD When: Call for appointment Disposition: Home Minutes spent on discharge:: 35 Patient Condition:: Stable Medical Necessity - Tobacco Use Smoking Status: Never smoker Tobacco Use: Non-smoker Meaningful Use Info Meaningful Use Diagnoses (Choose all that apply): None applicable <Chaz Esparza - Last Filed: 06/03/18 17:21> Discharge Date and Diagnosis - Secondary Discharge Diagnosis Chronic Problems (Last Reviewed 01/29/17 @ 12:42 by Alan Taylor MD) Anxiety (Chronic) Migraine headache (Chronic) Diabetic polyneuropathy (Chronic) Hypertension (Chronic) Encounter for long-term (current) use of other medications (Chronic) Asthma (Chronic) Diabetes type I (Chronic) Paroxysmal atrial flutter (Chronic) Paroxysmal atrial fibrillation (Chronic) Pelvic pain (Chronic) Hospital Course and Treatment Summary of Care Provided: This patient was seen in conjunction with Alex Jesus PA-C . I have independently interviewed and examined the patient and reviewed pertinent historical, laboratory, and other data. Please refer to Alex Jesus PA-C note for details of this patient's presentation, findings, and recommendations. I have reviewed Alex Jesus PA-C note and concur with documented findings. In brief, patient is a 87-year-old lady admitted with multiple complaints including syncopal episode and aphasia admitted to monitored bed where patient is currently undergoing further workup. Telemetry monitoring did demonstrate 8 beat runs of nonsustained VT Assessment: 1. Syncopal episode 2. Complex migraine 3. Nonsustained VT 4. History of paroxysmal A. fib status post ablation 5. Anxiety disorder 6. Diabetes mellitus type II with complications including gastroparesis 7. Obesity with BMI of 40.9 Hospital course: As documented above by Alex Jesus - Physical Exam Vital Signs Temp Pulse Resp BP Pulse Ox 97.1 F L 81 17 115/65 97 06/03/18 11:40 06/03/18 11:40 06/03/18 11:40 06/03/18 11:40 06/03/18 11:40 Oxygen Delivery Method Room Air Weight: 127.8 kg Body Mass Index (BMI) 40.8 Finger Stick Blood Glucose 118 Intake and Output for Last 24 Hours 06/01/18 06/02/18 06/03/18 23:59 23:59 23:59 Intake Total 1248 / 1248 2004 740 / 740 Output Total 1700 / 1700 2650 / 2650 1500 / 1500 Balance -452 / -452 -645 / -645 -760 / -760 POC Glucose 06/03/18 06/03/18 06/02/18 11:53 06:38 21:18 POC Glucose 289 H 204 H 259 H Code Visit OBSV E&M: 99025 Observation care discharge
== END 2018-06-03 12:27 | disposition home or self-care (01) ==
LOC: ED 14:15 → PCU 15:54
PROVIDERS: Physician Assistant; Admitting Provider Internal Medicine; Emergency Provider Emergency Medicine; Family Provider Family Medicine; PCP Family Medicine; Visit Provider Internal Medicine
DX: R55 Syncope and collapse (principal); G43.109 Migraine with aura, not intractable, without status migrainosus; R53.1 Weakness; I48.0 Paroxysmal atrial fibrillation; E11.43 Type 2 diabetes mellitus with diabetic autonomic (poly)neuropathy; K31.84 Gastroparesis; R47.01 Aphasia; E11.42 Type 2 diabetes mellitus with diabetic polyneuropathy; I10 Essential (primary) hypertension; F41.9 Anxiety disorder, unspecified; J45.909 Unspecified asthma, uncomplicated; E66.01 Morbid (severe) obesity due to excess calories; F32.9 Major depressive disorder, single episode, unspecified; I47.2 Ventricular tachycardia; Z68.41 Body mass index [BMI] 40.0-44.9, adult; Z79.899 Other long term (current) drug therapy; Z79.4 Long term (current) use of insulin; Z79.82 Long term (current) use of aspirin; Z71.3 Dietary counseling and surveillance
CPT/HCPCS: 36415; 70496; 70498; 70551; 71045; 80048; 80061; 82962; 83036; 83735; 84484; 85025; 85379; 85610; 85730; 93005; 93306; 95819; 96360; 96361; 97802; 99218; 99285; J7030; Q9957; Q9967; A4216; C8929; G0378

== ENCOUNTER → 2018-11-20 | Outpatient (CLI) | payer OTHER, SELFPAY ==
[2018-07-04 10:28] VITALS: BMI 41.6
--- NOTE | 2018-11-20 14:09 | BI_ITS ---
MAMMOGRAPHY - BILATERAL DIAGNOSTIC REASON FOR EXAM: Female, 48 years old. Palpable lump in the inferior lateral aspect of the right breast PERTINENT HISTORY: Non-contributory. TECHNIQUE: Digital examination. Mediolateral oblique (MLO) and craniocaudad (CC) views of both breasts were obtained. CAD: COMPARISON: None. FINDINGS: Breast Composition: Probably fatty There are no dominant masses or suspicious calcifications. No other significant abnormalities are identified. The palpable lump in the inferior lateral right breast has a fatty appearance similar to the adjacent breast parenchyma and therefore represents a subcutaneous lipoma. No additional masses, lesions, or cluster of pathological calcifications is seen. BI/DIAG MAMM W/CAD, BILAT IMPRESSION: Normal bilateral diagnostic mammogram. The palpable density in the inferior lateral right breast represents a subcutaneous lipoma. ASSESSMENT CATEGORY: FINAL ASSESSMENT: BI-RAD CATEGORY I (NEGATIVE) FOLLOW UP RECOMMENDATION: Approximately 10% of breast cancers are not detected by mammography. A normal mammogram should not delay biopsy of a clinically suspicious abnormality. Electronically Signed: Danny Hartley, at 16:49 EDT Tel , Service support ,
== END | disposition home or self-care (01) ==
LOC: OPBI 14:07
PROVIDERS: Family Provider Family Medicine; PCP Family Medicine; Referring Provider Obstetrics & Gynecology; Visit Provider Obstetrics & Gynecology
DX: N63.13 Unspecified lump in the right breast, lower outer quadrant (principal)
CPT/HCPCS: 77062; 77066; G0279

== ENCOUNTER → 2019-01-16 10:17 | Outpatient (CLI) | payer OTHER, SELFPAY ==
[2018-07-04 10:28] VITALS: BMI 41.6
--- NOTE | 2019-01-16 10:20 | RAD_ITS ---
STUDY: X-RAY CHEST REASON FOR EXAM: Female, 48 years old. Fever and cough TECHNIQUE: PA and lateral views of the chest. COMPARISON: 06/01/2018 FINDINGS: There are interstitial fibrotic changes of the lungs. There is no demonstrated pleural abnormality. Normal size heart. Normal mediastinum and dontrell. Normal visualized pulmonary arteries. Normal visualized aortic arch and descending thoracic aorta. Normal visualized thoracic spine. Normal visualized ribs, clavicles, and shoulders. There is no demonstrated abnormality of the visualized soft tissue structures of the upper abdomen. RAD/Chest PA and Lateral IMPRESSION: Right interstitial changes, no superimposed acute pulmonary process Electronically Signed: German Mims MD at 11:35 EST , Service support ,
== END ==
LOC: MTRAD 10:19
PROVIDERS: Family Provider Family Medicine; PCP Family Medicine; Referring Provider Family Medicine; Visit Provider Family Medicine
DX: R05 Cough (principal); R50.9 Fever, unspecified
CPT/HCPCS: 71046

== ENCOUNTER → 2019-01-26 09:36 | Outpatient (CLI) | payer OTHER, SELFPAY ==
[2018-07-04 10:28] VITALS: BMI 41.6
--- NOTE | 2019-01-26 09:40 | MRI_ITS ---
STUDY: MRI LUMBAR SPINE WITHOUT CONTRAST REASON FOR EXAM: Female, 48 years old. Low back pain with right leg weakness TECHNIQUE: Standardized fat and water weighted pulse sequences were obtained in the sagittal and axial planes. COMPARISON: April 12 2015 FINDINGS: There is central disc protrusion at T11-T12 only seen on sagittal projection narrowing the spinal canal and mildly impinging upon the cord T12-L1: Normal endplates. Normal disc height, hydration and morphology. Normal bilateral facet joints. Normal central canal and bilateral lateral recesses. Normal bilateral intervertebral neural foramina. Normal lumbar lordosis. There is no substantial scoliosis. Normal conus medullaris that terminates at T12-L1 L1-2: Normal endplates. Normal disc height, hydration and morphology. Normal bilateral facet joints. Normal central canal and bilateral lateral recesses. Normal bilateral intervertebral neural foramina. L2-3: Normal endplates. Normal disc height, hydration and morphology. Normal bilateral facet joints. Normal central canal and bilateral lateral recesses. Normal bilateral intervertebral neural foramina. L3-4: Normal endplates. Normal disc height, desiccation and mild annular bulge with small central disc protrusion. Mild facet arthropathy. Mild narrowing of the central canal. Normal bilateral recesses. Moderate bilateral neuroforaminal stenosis. L4-5: Normal disc height hydration and morphology. Normal bilateral facet joints. Normal central canal and bilateral lateral recesses. Normal bilateral intervertebral neural foramina. L5-S1: Normal endplates. Normal disc height, desiccation and small broad-based central/right paracentral disc protrusion.... Mild facet arthropathy.. Normal central canal and bilateral lateral recesses. Normal bilateral intervertebral neural foramina. Normal visualized sacral ala. Normal visualized paraspinous soft tissue structures. No significant interval change since prior study MRI/Spine Lumbar (Routine) IMPRESSION: No evidence for acute fracture or other significant bony pathology. Spinal stenosis at L3-4 and L5-S1 Electronically Signed: Ronny Archer MD at 16:41 EST , Service support ,
== END ==
LOC: MRI 09:37
PROVIDERS: Family Provider Family Medicine; PCP Family Medicine; Referring Provider Anesthesiology Pain Medicine; Visit Provider Anesthesiology Pain Medicine
DX: M54.9 Dorsalgia, unspecified (principal); R29.898 Other symptoms and signs involving the musculoskeletal system
CPT/HCPCS: 72148

== ENCOUNTER → 2019-01-27 10:09 | Outpatient (CLI) | payer OTHER, SELFPAY ==
[2018-07-04 10:28] VITALS: BMI 41.6
--- NOTE | 2019-01-27 10:15 | MRI_ITS ---
STUDY: MRI LEFT ANKLE WITHOUT CONTRAST REASON FOR EXAM: Left ankle and heel pain, Achilles surgery in March 2016. TECHNIQUE: Standardized fat and water weighted pulse sequences were obtained in all 3 orthogonal planes. COMPARISON: Radiographs of the left tibia and fibula 03/16/2017. FINDINGS: There is edema in the subcutis adipose space. Normal posterior tibialis tendon. Normal flexor digitorum longus tendon. Normal flexor hallucis longus tendon. There is a small volume of fluid in the perimalleolar peroneal tendon sheath (inversion recovery sagittal images 17, 18). The peroneus longus and brevis tendons are morphologically normal. Normal tibialis anterior tendon. Normal extensor hallucis longus tendon. Normal extensor digitorum longus tendons. There is postoperative scarring of the Achilles tendon with an intrasubstance partial tear of the Achilles tendon approximately 4.1 cm proximal to the calcaneal insertion (inversion recovery sagittal images 11, 12; T2 axial images 1-6), measuring approximately 3.3 cm in length. Normal plantar fascia. There is a small plantar calcaneal enthesophyte. There is atrophy with partial fat replacement of the abductor digiti minimi muscle (T1 sagittal image 15). Normal distal tibiofibular syndesmotic ligamentous complex. Normal lateral ligamentous complex. Normal subtalar ligaments and sinus tarsi. Normal deltoid ligamentous complexes. Normal plantar calcaneonavicular (spring) ligament. Normal tibiotalar articulation. Normal talar dome. Normal subtalar articulations. Normal talonavicular articulation. Normal calcaneocuboid articulation. Normal navicular-cuneiform articulations. MRI/Lower Ext Joint Only (Routine) IMPRESSION: Intrasubstance partial tear and postoperative scarring of the Achilles tendon. Mild peroneal tenosynovitis. Atrophy of the abductor digiti minimi muscle. No demonstrated plantar fibromatosis. Electronically Signed: Tello Alonso MD at 13:18 EST Tel , Service support ,
== END ==
LOC: MRI 10:10
PROVIDERS: Family Provider Family Medicine; PCP Family Medicine; Referring Provider Podiatrist; Visit Provider Podiatrist
DX: M72.2 Plantar fascial fibromatosis (principal)
CPT/HCPCS: 73721

== ENCOUNTER 2019-03-07 15:51 | Emergency (ER) | payer OTHER, SELFPAY ==
[2018-07-04 10:28] VITALS: BMI 41.6
[2019-03-07 15:53] VITALS: BP 150/94; PULSE 127; RESP 18; TEMP 36.4; O2SAT 96; BMI 42.7
--- NOTE | 2019-03-07 16:02 | RAD_ITS ---
STUDY: X-RAY CHEST REASON FOR EXAM: Female, 48 years old. SHORT OF BREATH, COUGH TECHNIQUE: PA and lateral views of the chest. COMPARISON: 01/16/2019 FINDINGS: Localized consolidation of the lingula abuts the lateral left hemidiaphragm. There is no demonstrated pleural abnormality. Normal size heart. Normal mediastinum and dontrell. Normal visualized pulmonary arteries. Normal visualized aortic arch and descending thoracic aorta. Normal visualized thoracic spine. Normal visualized ribs, clavicles, and shoulders. There is no demonstrated abnormality of the visualized soft tissue structures of the upper abdomen. RAD/Chest PA and Lateral IMPRESSION: Localized lingular pneumonia. Electronically Signed: Joseph Eddy MD (Brooks) at 16:54 EST , Service support ,
[2019-03-07 16:05] VITALS: PULSE 119; RESP 20; O2SAT 98
[2019-03-07 16:07] VITALS: O2SAT 96
--- NOTE | 2019-03-07 16:12 | EKG12_ITS ---
Test Reason : COUGH Blood Pressure : / mmHG Vent. Rate : 111 BPM Atrial Rate : 111 BPM P-R Int : 142 ms QRS Dur : 076 ms QT Int : 344 ms P-R-T Axes : 047 011 034 degrees QTc Int : 467 ms Sinus tachycardia Otherwise normal ECG Confirmed by ARLENE LOPEZ, JANE ([id number]), visual effects editor CHELO RODRIGUEZ ([id number]) on 03/09/2019 12:26:44 PM Referred By: JESSEE Confirmed By:JANE JACOBS MD
[2019-03-07] MEDS: Ipratropium/Albuterol Sulfate 3 ML AMPUL.NEB INHALATION ×2 (16:14→17:37)
[2019-03-07] MEDS: 0.9% Normal Saline 1,000 ML 999 ML IV (16:25)
[2019-03-07 17:14] LABS: Absolute Lymphocyte Count 1.43 X10^3/uL (0.83-4.51); Absolute Neutrophil Count 5.6 X10^3/uL (2.0-7.7); Basophil# 0.03 X10^3/uL; Basophil% 0.4 % (0-1); Eosinophil# 0.22 X10^3/uL; Eosinophils% 2.6 % (0-5); Hemoglobin 13.1 g/dL (12.0-15.0); Lymphocyte # 1.43 X10^3/ul (4.0); Mean Corp Hgb Conc 32.8 g/dL (32-36); Mean Corpuscular Hgb 30.3 pg (27.0-32.0); Mean Corpuscular Volume 92.6 fL (81-99); Mean Platelet Vol. 9.6 fl (6.2-12.0); Monocyte% 13.1 % (0-10); NRBC Flagged by Analyzer 0 % (0-5); Neutrophil # 5.58 X10^3/uL (2.7-7.7); Neutrophil % 66.5 % (47-70); Platelet Count 283 K/mm3 (150-450); RBC Distribution Width CV 13.1 % (11.6-14.6); RBC Distribution Width SD 44.2 fl (35.1-43.9); Red Blood Count 4.32 M/mm3 (4.2-5.4); White Blood Count 8.4 K/mm3 (4.4-11.0)
--- NOTE | 2019-03-07 17:20 | ED.VIS.GEN ---
History of Present Illness Chief Complaint: Cough Informant: Patient Onset: Days Narrative: Patient had a harsh cough runny nose began around Saturday with a runny nose and some URI symptoms and later she had harsh coughing and body ache she is allergic to flu vaccination did not receive that indicates last month she had walking pneumonia and was treated with 3 antibiotics to which were azithromycin and Augmentin she improved, she also has history of A. fib with cardiac ablation distantly She has before the onset of the sudden symptoms on Saturday and Saturday she was not ill her bowel bladder habits been normal Past Medical History - Allergies and Home Meds Allergies/Adverse Reactions: Allergies venom-honey bee [bee venom (honey bee)] Allergy (Severe, Verified 03/07/19 15:53) Anaphylaxis Influenza Virus Vaccines Allergy (Verified 03/07/19 15:53) HIVES AT INJECTION SITE bacitracin [From Triple Antibiotic] Adverse Reaction (Verified 03/07/19 15:53) blisters and itching bacitracin zinc [From Triple Antibiotic] Adverse Reaction (Verified 03/07/19 15:53) blisters and itching canagliflozin [From Invokana] Adverse Reaction (Verified 03/07/19 15:53) Nausea/Vom/Diarrhea levofloxacin [From Levaquin] Adverse Reaction (Verified 03/07/19 15:53) Nausea/Vom/Diarrhea neomycin sulfate [From Triple Antibiotic] Adverse Reaction (Verified 03/07/19 15:53) blisters and itching polymyxin B [From Triple Antibiotic] Adverse Reaction (Verified 03/07/19 15:53) blisters and itching polymyxin B sulfate [From Triple Antibiotic] Adverse Reaction (Verified 03/07/19 15:53) blisters and itching simvastatin Adverse Reaction (Verified 03/07/19 15:53) Nausea/Vom/Diarrhea Primary Care Physician: Kasey Lewis MD [Primary Care Provider] - Past Medical History: - Surgical History: hysterectomy, - - ablation x 2, achilles tendon repair Smoking Status: Former smoker - Family History Maternal Family History: Family History (Last Reviewed 09/04/18 @ 08:47 by Autumn Coburn) Son Protein S deficiency Family History: Reports: - - Family history of heart disease grandmother over age 55 Mother hx thyroid disorder Review of Systems ROS: - As above General: Reports: Fever. Denies: Chills, Sweats Eyes: Denies: Visual changes - bilaterally, Diplopia ENT: Denies: Rhinorrhea, Sore throat Cardiovascular: Denies: Chest pain, Palpitations Respiratory: Reports: Cough, Sputum. Denies: Dyspnea, Dyspnea on exertion Gastrointestinal: Denies: Abdominal pain, Nausea, Vomiting, Diarrhea, Melena, Hematochezia Genitourinary: Denies: Dysuria, Hematuria, Frequency Musculoskeletal: Denies: Back pain, Extremity Pain Skin: Denies: Rash, Wounds Neurological: Denies: Headache, Weakness, Numbness Physical Exam Vital Signs/Narrative: Vital Signs Temp Pulse Resp BP Pulse Ox 03/07/19 16:05 119 H 20 H 98 03/07/19 15:53 97.6 F L 127 H 18 150/94 H 96 General: Well nourished, Well developed, No Acute Distress Head: Normocephalic, Atraumatic Eyes: Perrl, EOMI ENT: Moist mucous membranes, No rhinorrhea Neck: Supple, Nontender Cardiovascular: Regular rate, Regular rhythm, No murmurs Respiratory: No distress, CTA bilaterally, Chest nontender Abdomen: Soft, Nontender, Nondistended, Normal bowel sounds Back: Nontender, Normal Inspection Extremities: Nontender, No edema Skin: Normal color, No rash Neurological: Alert, Oriented x3, Cranial nerves II-XII grossly intact, Normal Strength, Normal Sensation Psychological: Normal affect, Normal Mood Diagnostic/Tx/Re-eval - Medical Decision Making Patient clinically looks well heart rate is about 120 sinus rhythm on the monitor she has clear lungs she indicates her p.o. intake has been less than baseline given the illness the cough is harsh and dry nonproductive recent pneumonia treated with 3 different antibiotics ED screening evaluation is generally unremarkable except her chest x-ray shows apparent lingular pneumonia, she received IV fluids given her allergy panel she will be started on doxycycline as this appears to be community-acquired but she has not been admitted she has not been associated long-term care facilities she understands close outpatient call with her physicians and return for change in symptoms she will also be given an inhaler to use Comfortable with this discharge plan Home stable Impression final lingular pneumonia ED Disposition - Plan for ED Patient: Diagnosis: Pneumonia Instructions: PNEUMONIA (Adult) Prescriptions: Albuterol Inhaler [Ventolin Hfa] 1 - 2 puff INHALATION Q4H PRN PRN #1 inhaler PRN Reason: Wheezing Prescription Printed Doxycycline [Vibramycin] 100 mg PO BID #20 cap Prescription Printed Referrals: Kasey Lewis MD [Primary Care Provider] -
[2019-03-07 17:28] LABS: Anion Gap 7 (5-15); BUN 11 mg/dL (7-18); BUN/Creat Ratio 12.9 RATIO (10-20); Calcium,Total 8.9 mg/dL (8.5-10.1); Chloride 100 mmol/L (98-107); Creatinine, Serum 0.85 mg/dL (0.55-1.02); EST Glomerular Filtration Rate 76 mL/min (>60); Est Glom Filt Rate - Afr Amer 92 mL/min (>60); Estimated Creatinine Clearance 85.51 ml/min; Glucose 180 mg/dL (74-106); Potassium 3.9 mmol/L (3.5-5.1); Sodium Level 132 mmol/L (136-145)
[2019-03-07] MEDS: Doxycycline 100 MG CAPSULE PO (17:37)
--- NOTE | 2019-03-07 18:07 | CPS ---
AEROSOL GIVEN BY DANIA COOK DUE TO WORKLOAD
[2019-03-07 18:36] VITALS: BP 140/90; PULSE 110; RESP 16; O2SAT 97
== END 2019-03-07 18:37 | disposition home or self-care (01) ==
PROVIDERS: Emergency Provider Emergency Medicine; PCP Family Medicine
DX: J18.9 Pneumonia, unspecified organism (principal); I48.91 Unspecified atrial fibrillation; Z79.82 Long term (current) use of aspirin; Z79.4 Long term (current) use of insulin; Z79.899 Other long term (current) drug therapy; Z88.1 Allergy status to other antibiotic agents; Z87.891 Personal history of nicotine dependence; Z90.710 Acquired absence of both cervix and uterus
CPT/HCPCS: 71046; 80048; 84484; 85025; 93005; 94640; 96360; 96361; 99282; J7030; A4216

== ENCOUNTER → 2019-04-13 11:48 | Outpatient (CLI) | payer OTHER, SELFPAY ==
[2019-04-06 17:56] VITALS: BMI 42.7
--- NOTE | 2019-04-13 11:51 | RAD_ITS ---
STUDY: X-RAY CHEST REASON FOR EXAM: Female, 48 years old. recent cough and pneumonia TECHNIQUE: PA and lateral views of the chest. COMPARISON: 03/07/2019 FINDINGS: The lungs are clear and expanded. There is no demonstrated pleural abnormality. Normal size heart. Normal mediastinum and dontrell. Normal visualized pulmonary arteries. Normal visualized aortic arch and descending thoracic aorta. Normal visualized thoracic spine. Normal visualized ribs, clavicles, and shoulders. There is no demonstrated abnormality of the visualized soft tissue structures of the upper abdomen. RAD/Chest PA and Lateral IMPRESSION: Normal x-ray examination of the chest. Electronically Signed: Adria Pittman MD at 13:52 EST Tel , Service support ,
--- NOTE | 2019-04-13 11:54 | RAD_ITS ---
STUDY: X-RAY - UNILATERAL RIBS ( RIGHT ) REASON FOR EXAM: Female, 48 years old. rib pain from coughing, right mid lateral side TECHNIQUE: 4 view(s) of the ribs. COMPARISON: None. FINDINGS: Normal visualized ribs without a demonstrated fracture. The visualized lung is clear and expanded. RAD/Ribs Unil 2V No CXR IMPRESSION: Normal x-ray examination of the ribs. Electronically Signed: Adria Pittman MD at 13:53 EST Tel , Service support ,
== END ==
LOC: MTRAD 11:50
PROVIDERS: PCP Family Medicine; Referring Provider Family Medicine; Visit Provider Family Medicine
DX: J45.909 Unspecified asthma, uncomplicated (principal); S22.39XA Fracture of one rib, unspecified side, initial encounter for closed fracture
CPT/HCPCS: 71046; 71100

== ENCOUNTER → 2019-04-29 15:00 | Outpatient (CLI) | payer OTHER, SELFPAY ==
[2019-04-06 17:56] VITALS: BMI 42.7
--- NOTE | 2019-04-29 15:03 | RAD_ITS ---
STUDY: X-RAY CHEST REASON FOR EXAM: Female, 48 years old. Cough, wheezing, pneumonia in January TECHNIQUE: PA and lateral views of the chest. COMPARISON: Comparison is made with prior examination of April 13, 2019. FINDINGS: The lungs are clear and expanded. There is no demonstrated pleural abnormality. Normal size heart. Normal mediastinum and dontrell. Normal visualized pulmonary arteries. Normal visualized aortic arch and descending thoracic aorta. Normal visualized thoracic spine. Normal visualized ribs, clavicles, and shoulders. There is no demonstrated abnormality of the visualized soft tissue structures of the upper abdomen. RAD/Chest PA and Lateral IMPRESSION: Normal x-ray examination of the chest. Electronically Signed: Abdirahman Salas, at 15:20 EDT , Service support ,
== END ==
LOC: MTRAD 15:01
PROVIDERS: PCP Family Medicine; Referring Provider Family Medicine; Visit Provider Family Medicine
DX: J45.909 Unspecified asthma, uncomplicated (principal); R05 Cough
CPT/HCPCS: 71046

== ENCOUNTER → 2019-05-26 10:13 | Outpatient (CLI) | payer OTHER, SELFPAY ==
[2018-07-04 10:28] VITALS: BMI 41.6
[2019-04-06 17:56] VITALS: BMI 42.7
[2019-05-26 12:26] LABS: ALB/GLOB Ratio 0.8 RATIO (0.9-2.4); AST(SGOT) 29 U/L (15-37); Alanine Aminotransfer ALT/SGPT 34 U/L (13-56); Albumin, Serum 3.2 g/dL (3.2-5.0); Alkaline Phosphatase 93 U/L (45-117); Anion Gap 5 (5-15); BUN 9 mg/dL (7-18); BUN/Creat Ratio 10.7 RATIO (10-20); Calcium,Total 9.1 mg/dL (8.5-10.1); Chloride 100 mmol/L (98-107); Cholesterol 173 mg/dL (200); Creatinine, Serum 0.84 mg/dL (0.55-1.02); EST Glomerular Filtration Rate 77 mL/min (>60); Est Glom Filt Rate - Afr Amer 93 mL/min (>60); Glucose 191 mg/dL (74-106); High Density Lipoprotein 39 mg/dL; Potassium 4.1 mmol/L (3.5-5.1); Protein, Total 7.2 g/dL (6.4-8.2); Sodium Level 136 mmol/L (136-145); Triglycerides 358 mg/dL; Very Low Density Lipoprotein 72 mg/dL (5-40)
[2019-05-26 12:34] LABS: Hemoglobin A1c 7.4 % (4.2-6.3)
[2019-05-26 12:41] LABS: Microalbumin,Random Urine 5.3 mg/L (NO RANGE EST.); Microalbumin:Creatinine Ratio 4.8 mg/g CRE (<30 mg/g CRE)
== END ==
LOC: MTLAB 10:15
PROVIDERS: PCP Family Medicine; Referring Provider Family Medicine; Visit Provider Family Medicine
DX: E11.9 Type 2 diabetes mellitus without complications (principal)
CPT/HCPCS: 36415; 80053; 80061; 82043; 82570; 83036

== ENCOUNTER 2020-06-03 05:55 | Day surgery (SDC) | payer OTHER, SELFPAY ==
[2020-05-26 09:04] VITALS: BMI 40.1
[2020-06-03] VITALS (8 sets, daily range): BP systolic 105–124; BP diastolic 62–81; PULSE 86–89; RESP 16; TEMP 36.2–36.5; O2SAT 98–100; BMI 40.4
--- NOTE | 2020-06-03 | LIP_PTH ---
PATIENT: DEIDRA CALLEJAS LOC: [facility] [place][id number] AGE/SX: 49/F ROOM: RE06/03/[address]: Dr. Erika Randall MD : 1970 BED: DIS: 06/03/2020 SPEC #: [id number] RECD: 06/03/20 10:14 STATUS: PAMELA REFrank #: [id number] JUAN: 06/03/20 00:[address]: Erika Randall DEPT: SURGICAL PATHOLOGY RECD BY: Víctor Le ENTERED: 06/03/20 10:16 SP TYPE: LIPOMA OTHR DR: Dr. Kasey Lewis MD Tissues: A - Epigastric region B - Epigastric region C - Abdomen, NOS D - Right breast, NOS E - Thigh, NOS Procedures: Surgery Specimen Level III HEADER OPERATION: Excision subcutaneous masses PRE-OP DIAGNOSIS: Subcutaneous masses, lipomas TISSUE SUBMITTED: A ? Epigastric #1, B - Epigastric #2, C ? Left upper quadrant, D ? Right lateral breast, E ? Left posterior thigh/gluteal lipoma MICROSCOPIC DIAGNOSIS A. Epigastric subcutaneous mass #1, excision: Mature adipose tissue, consistent with lipoma. B. Epigastric subcutaneous mass #2, excision: Mature adipose tissue, consistent with lipoma. C. Left upper quadrant subcutaneous mass, excision: Mature adipose tissue, consistent with lipoma. D. Right lateral breast subcutaneous mass, excision: Mature adipose tissue, consistent with lipoma. E. Left posterior thigh/gluteal region subcutaneous mass, excision: Pieces of mature adipose tissue, consistent with lipoma. SJ:tammi 06/06/2020 MICROSCOPIC DESCRIPTION Slides are reviewed. GROSS DESCRIPTION A - Received in fixative is one container labeled with the patient's name and designated epigastric #1. The specimen consists of a discoid fragment of yellow fatty tissue measuring 9.5 x 7.5 x 3 cm. Sections reveal homogenous yellow cut surfaces without areas of cyst formation, necrosis or hemorrhage. [employer] sections are submitted in two cassettes. B - Received in fixative is one container labeled with the patient's name and designated epigastric #2. The specimen consists of a discoid fragment of yellow fatty tissue measuring 9 x 9 x 3 cm. Sections reveal homogenous yellow cut surfaces without areas of cyst formation, necrosis or hemorrhage. [employer] sections are submitted in two cassettes. C - Received in fixative is one container labeled with the patient's name and designated left upper quadrant. The specimen consists of a discoid fragment of yellow fatty tissue measuring 4.5 x 2.5 x 1.2 cm. Sections reveal homogenous yellow cut surfaces without areas of cyst formation, necrosis or hemorrhage. [employer] sections are submitted in one cassette. D - Received in fixative is one container labeled with the patient's name and designated right lateral breast. The specimen consists of a discoid fragment of yellow fatty tissue measuring 3.7 x 3 x 1.4 cm. Sections reveal homogenous yellow cut surfaces without areas of cyst formation, necrosis or hemorrhage. [employer] sections are submitted in one cassette. E - Received in fixative is one container labeled with the patient's name and designated left posterior thigh/gluteal region. The specimen consists of multiple irregular fragments of yellow fatty tissue ranging in size from 2 to 3.6 cm. Serial sections reveal homogenous yellow cut surfaces. Restaurant [employer] sections are submitted in one cassette. / AM:rg06/03/20 TC:1 CPT: 44020 x5
[2020-06-03 06:46] LABS: Bedside Glucose 272 mg/dL (70-110)
--- NOTE | 2020-06-03 07:00 | HP_ITS ---
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: No Is patient in pain?: No Allergies venom-honey bee [bee venom (honey bee)] Allergy (Severe, Verified 05/26/20 09:05) Anaphylaxis Influenza Virus Vaccines Allergy (Verified 05/26/20 09:05) HIVES AT INJECTION SITE bacitracin [From Triple Antibiotic] Adverse Reaction (Verified 05/26/20 09:05) blisters and itching bacitracin zinc [From Triple Antibiotic] Adverse Reaction (Verified 05/26/20 09:05) blisters and itching canagliflozin [From Invokana] Adverse Reaction (Verified 05/26/20 09:05) Nausea/Vom/Diarrhea levofloxacin [From Levaquin] Adverse Reaction (Verified 05/26/20 09:05) Nausea/Vom/Diarrhea neomycin sulfate [From Triple Antibiotic] Adverse Reaction (Verified 05/26/20 09:05) blisters and itching polymyxin B [From Triple Antibiotic] Adverse Reaction (Verified 05/26/20 09:05) blisters and itching polymyxin B sulfate [From Triple Antibiotic] Adverse Reaction (Verified 05/26/20 09:05) blisters and itching simvastatin Adverse Reaction (Verified 05/26/20 09:05) Nausea/Vom/Diarrhea Medications Epi Pen [Epi-Pen] 0.3 mg IM DAILY PRN 01/20/15 [History Confirmed 05/26/20] Aspirin [Adult Low Dose Aspirin EC] 81 mg PO DAILY 02/23/15 [History Confirmed 05/26/20] Insulin Detemir [Levemir FlexPen] 10 - 30 units SC QHS 09/19/16 [History Confirmed 05/26/20] cholecalciferol (vitamin D3) 250 mcg (10,000 unit) capsule 10,000 unit PO QHS 01/29/17 [History Confirmed 05/26/20] insulin detemir U-100 100 unit/mL (3 mL) subcutaneous pen 50 unit SC DAILY ml 01/29/17 [History Confirmed 05/26/20] lovastatin 40 mg tablet 40 mg PO QHS 01/29/17 [History Confirmed 05/26/20] magnesium oxide 500 mg capsule 500 mg PO QHS cap 01/29/17 [History Confirmed 05/26/20] traZODone [Desyrel] 50 mg PO QHS PRN 02/22/17 [History Confirmed 05/26/20] Multivitamin [Multiple Vitamins] 1 ea PO QHS 04/02/17 [History Confirmed 05/26/20] insulin lispro 100 unit/mL subcutaneous pen 5 unit SC TID 07/04/18 [History Confirmed 05/26/20] liraglutide (weight loss) 3 mg/0.5 mL (18 mg/3 mL) subcut pen injector 0.6 mg SC DAILY 07/09/19 [History Confirmed 05/26/20] metformin 1,000 mg tablet 1,000 mg PO BID 07/09/19 [History Confirmed 05/26/20] naltrexone 8 mg-bupropion 90 mg tablet,extended release 1 tab PO QAM 07/09/19 [History Confirmed 05/26/20] PFSH Medical History Paroxysmal atrial flutter (Chronic) Paroxysmal atrial fibrillation (Chronic) Premature ventricular contractions (Chronic) Essential (primary) hypertension (Chronic) Hyperlipidemia (Chronic) Anxiety (Chronic) Asthma (Chronic) Diabetic polyneuropathy (Chronic) Obesity (Chronic) Type I diabetes mellitus (Chronic) Aphasia (Resolved) Migraine (Resolved) Non-sustained ventricular tachycardia (Resolved 06/03/18) Speech disturbance (Resolved) Syncope (Resolved 06/03/18) Surgical History H/O shoulder surgery (Resolved) History of ankle surgery (Resolved) History of carpal tunnel release (Resolved) History of hip surgery (Resolved) History of knee surgery (Resolved) History of radiofrequency ablation procedure for cardiac arrhythmia (Resolved 07/2006) Family History Son Protein S deficiency patient is negative Social History (Updated 05/26/20 @ 09:[address] Erika Randall MD) Smoking Status: Former smoker alcohol intake: never HPI HPI HPI: DEIDRA CALLEJAS, is a 49 F who presents to the office today for HPI HPI Surgical H&P: Yes HPI: DEIDRA CALLEJAS, is a 49 F who presents to the office today for multiple lipomas to on her abdomen/lateral chest and one on her left posterior superior thigh/gluteal. Patient states she does have a history of lipomas which can grow fast she had one removed from her left upper abdomen that was 5 pounds. Patient states that the 1 in her epigastric region has been there for about a month and has grown pretty fast. Patient also has 1 on the right lateral chest near the inferior he mammary fold for about the last year which is bothersome with her bra. Patient has noticed 1 for about the last 3 to 4 weeks on her left posterior superior thigh/glute as she went horseback riding and is been tender since. ROS General General: Yes fatigue; no weight change Gastro Gastrointestinal: No abdominal pain, Yes nausea or vomiting (no vomiting), Yes diarrhea, No constipation, No blood in stool, No acid reflux, No hemorrhoids, No ulcers, No black,tarry stools Exam Const General: cooperative, comfortable, no acute distress, well developed Skin Other: Multiple subcutaneous masses likely lipomas. Epigastric/right upper quadrant/chest large 12 cm x 7 cm subcutaneous mass, mobile, no change in overlying skin, non tender Right lateral chest near the inframammary fold/lateral breast 5 x 3 cm subcutaneous mass, mobile, no change in overlying skin, nontender Left posterior superior thigh/glutes 1 cm x 1 cm subcutaneous mass, mobile, no changes to overlying skin, tender Assessment & Plan Problems 1. Subcutaneous mass of abdominal wall R22.2 2. Subcutaneous mass of left lower leg R22.42 Plan We will plan for excision of multiple subcutaneous masses: Epigastric/right upper quadrant/chest, Right lateral chest/lateral breast,Left posterior superior thigh/glute. Discussed procedure including but not limited to risk of bleeding, infection, recurrent lipomas. Patient no further questions this time. We will schedule excision. Erika Randall M.D. Pager: [phone] [facility] [address] [place] [address], [facility], [address] [place] [address] Office: [phone] Plan Detail Follow Up We will schedule excision Coding Level of Care Code Off vis,new,level 3 Diagnoses Subcutaneous mass of abdominal wall R22.2 Subcutaneous mass of left lower leg R22.42 COVID (Procedure Consent) Procedure Criteria Procedure Criteria: Yes Elective The surgeon/proceduralist and patient have discussed in detail the risk of exposure to and/or potential harm posed by the COVID-19 virus with having a surgery/procedure at this time versus the risk of? delaying the surgery/procedure. It is not possible to know either the risk of delaying the surgery or procedure or chance of getting an infection with perfect accuracy, but a joint decision was made between the patient and the surgeon/proceduralist ?to proceed at this time with the scheduled surgery/procedure as indicated on the consent form. I have examined the patient the following changes are noted: Patient did note a small left upper quadrant cutaneous mass likely lipoma bowel 1/2 cm x 1/2 cm. That popped up we will plan to excise as well.
--- NOTE | 2020-06-03 08:49 | PCM.OPRPT ---
Report of Operation Date of Procedure: 06/03/20 Pre-Operative Diagnosis: Multiple subcutaneous masses: Left upper quadrant, right lateral chest\breast, epigastric/right upper quadrant, left superior posterior thigh/gluteal Post-Operative Diagnosis: Multiple subcutaneous lipomas see positions in preop diagnosis Surgery/Procedure Performed:: Excision of the left upper quadrant, epigastric/right upper quadrant, right lateral chest/breast, left superior thigh/gluteal Type of Anesthesia:: Local MAC Anesthesiologist: J Carlos Escobar Special Medications: Ancef 3 g IV x1 Specimen's removed: 1. Epigastric lipoma #1, epigastric lipoma #2, left upper quadrant lipoma, right chest/breast lipoma, left gluteal lipoma Estimated Blood Loss (mL): <10 cc Fluids Replaced: 800 cc Description of Procedure: Patient is placed supine on the operating table. Timeout was completed verifying correct patient, procedure, site, positioning, special equipment prior to beginning procedure. MAC anesthesia was induced. The abdomen chest was prepped draped in usual sterile fashion with chlorhexidine. Local anesthesia of 1% lidocaine total of 35 cc used throughout the procedure. Incisions were planned overlying the subcutaneous masses. Each was done similarly. Deepened to the lipoma with electrocautery. Hemostasis was assured. Wounds were irrigated with saline. The epigastric lipoma was found to be 2 separate lipomas one was 10 cm x 7 cm x 1.5 cm and the second epigastric lipoma was 9 cm x 9.5 cm x 2 cm. The left upper quadrant lipoma was 5 cm x 2.5 cm x 0.5 cm the right chest/breast was 2.75 cm x 3.75 cm x 0.5 cm. Incisions were closed with subdermal sutures of 3-0 Vicryl and skin was closed with 4-0 Monocryl Steri-Strips and OpSite's. Patient's position was changed to right decubitus in order to get the left anterior thigh/gluteal subcutaneous mass. This area was prepped and draped in the usual sterile fashion with Betadine. Skin local anesthesia was used and incision was planned over the mass. Lipoma was found to be 3 cm x 3.75 cm x 0.5 cm. Skin was closed similar to above with 3-0 Vicryl subdermal sutures and skin was closed with 4-0 Monocryl, Steri-Strips and OpSites. Patient tolerated procedure well was taken to postanesthesia care in stable condition. - Complications none
--- NOTE | 2020-06-03 08:57 | PCM.DC.GS ---
Discharge Diet: Light diet - advance as tolerated Discharge Activity: May not drive while taking narcotic pain medications. May shower in (days): 1 Call your doctor if your incision/area has: Continuous Slow Oozing, Sudden Increased Bleeding, Increased Pain/ Swelling, Increased Redness, Foul Smelling Discharge, Swelling at the incision site Call your doctor if you observe: Fever of 101 or Higher Remove Dressing in (days):: 2 Additional Instructions: No soaking in any water including bath, pool, hot tub 4 to 5 weeks. Allergies/Adverse Reactions: Allergies venom-honey bee [bee venom (honey bee)] Allergy (Severe, Verified 05/26/20 09:05) Anaphylaxis Influenza Virus Vaccines Allergy (Verified 05/26/20 09:05) HIVES AT INJECTION SITE canagliflozin [From Invokana] Adverse Reaction (Verified 05/26/20 09:05) Nausea/Vom/Diarrhea levofloxacin [From Levaquin] Adverse Reaction (Verified 05/26/20 09:05) Nausea/Vom/Diarrhea neomycin [From Neosporin ([id number])] Adverse Reaction (Verified 06/03/20 06:25) Other neomycin sulfate [From Triple Antibiotic] Adverse Reaction (Verified 05/26/20 09:05) blisters and itching polymyxin B [From Triple Antibiotic] Adverse Reaction (Verified 05/26/20 09:05) blisters and itching polymyxin B sulfate [From Triple Antibiotic] Adverse Reaction (Verified 05/26/20 09:05) blisters and itching simvastatin Adverse Reaction (Verified 05/26/20 09:05) Nausea/Vom/Diarrhea Medications to take at Discharge Epi Pen [Epi-Pen] 0.3 mg IM DAILY PRN 01/20/15 Aspirin [Adult Low Dose Aspirin EC] 81 mg PO DAILY 02/23/15 cholecalciferol (vitamin D3) 250 mcg (10,000 unit) capsule 10,000 unit PO QHS PRN 01/29/17 lovastatin 40 mg tablet 40 mg PO QHS 01/29/17 magnesium oxide 500 mg capsule 500 mg PO QHS cap 01/29/17 traZODone [Desyrel] 50 mg PO QHS PRN 02/22/17 Multivitamin [Multiple Vitamins] 1 ea PO QHS 04/02/17 metformin 1,000 mg tablet 1,000 mg PO BID 05/28/20 Duloxetine Hcl [Cymbalta] 20 mg PO DAILY 05/30/20 Insulin Aspart [Novolog Flexpen (BKC)] 5 - 15 units SC TIDCM 05/30/20 Metoprolol Succinate [Toprol Xl] 25 mg PO QHS 05/30/20 Saxaenda 3 mg SQ DAILY 05/30/20 Tetrabenazine [Xenazine] 12.5 mg PO 4X/DAY 05/30/20 Oxycodone HCl/Acetaminophen [Percocet 5/325] 1 - 2 tablet PO Q6H PRN PRN 3 Days #10 tablet 06/03/20 The following prescriptions were given: Oxycodone HCl/Acetaminophen [Percocet 5/325] 1 - 2 tablet PO Q6H PRN PRN 3 Days #10 tablet PRN Reason: Pain Transmission Status: Received by [facility] Primary Care Physician: Kasey Lewis MD [Primary Care Provider] - Test Results: Test results from this visit will be discussed in further detail at your follow-up appointment, if applicable. Please Follow Up With: Erika Randall MD - After 5:00 and on the weekends call [phone] with any concerns When: Office for a follow-up appointment abt 2 weeks. Proposed Discharge Date: 06/03/20
[2020-06-03] MEDS: Lactated Ringers 1,000 ML 100 ML IV (09:18)
== END 2020-06-03 10:02 | disposition home or self-care (01) ==
LOC: SDC 05:56 → AC 05:56
PROVIDERS: PCP Family Medicine; Referring Provider Surgery; Visit Provider Surgery
PROC: (CPT 21552; principal; 2020-06-03 07:15)
DX: D17.24 Benign lipomatous neoplasm of skin and subcutaneous tissue of left leg (principal); D17.1 Benign lipomatous neoplasm of skin and subcutaneous tissue of trunk; I48.0 Paroxysmal atrial fibrillation; I48.92 Unspecified atrial flutter; F41.9 Anxiety disorder, unspecified; E78.5 Hyperlipidemia, unspecified; J45.909 Unspecified asthma, uncomplicated; E10.42 Type 1 diabetes mellitus with diabetic polyneuropathy; I10 Essential (primary) hypertension; E66.9 Obesity, unspecified; Z20.828 Contact with and (suspected) exposure to other viral communicable diseases; Z79.82 Long term (current) use of aspirin; Z79.4 Long term (current) use of insulin; Z79.899 Other long term (current) drug therapy; Z68.41 Body mass index [BMI] 40.0-44.9, adult; Z87.891 Personal history of nicotine dependence; K21.9 Gastro-esophageal reflux disease without esophagitis
CPT/HCPCS: 00700; 21552; 22903; 27043; 82962; 87426; 88304; C9803; J7120; J2405

== ENCOUNTER 2020-07-11 16:37 | Emergency (ER) | payer OTHER, SELFPAY ==
[2020-06-03 06:38] VITALS: BMI 40.4
[2020-07-11 16:37] VITALS: BP 171/83; PULSE 97; RESP 18; TEMP 36.7; O2SAT 100; BMI 41.2
--- NOTE | 2020-07-11 16:44 | CT_ITS ---
STUDY: CT ABDOMEN AND PELVIS WITHOUT CONTRAST REASON FOR EXAM: Female, 49 years old. left flank pain RADIATION DOSAGE (If Supplied By Facility): CTDIvol = ( 31.97 ) mGy, DLP = ( 1717.42 ) mGycm TECHNIQUE: Transaxial images were obtained from the dome of the diaphragm to the symphysis pubis without oral contrast, and without intravenous contrast. Sagittal and coronal images were reconstructed. Individualized dose optimization techniques were used for this CT. COMPARISON: None. FINDINGS: The visualized lung bases are unremarkable. The visualized portions of the heart are within normal limits. Normal liver. There are surgical clips in the gallbladder fossa consistent with a prior cholecystectomy. Normal spleen. Normal pancreas. Normal bilateral adrenal glands. Normal right kidney. 4 mm obstructing stone of the proximal left ureter with moderate hydronephrosis Normal visualized stomach. Normal small intestine. Normal colon. There is non-visualization of the appendix. Normal abdominal aorta. Normal inferior vena cava. Normal retroperitoneum. Normal urinary bladder. Normal abdominal wall. Normal osseous structures. CT/Abdomen/Pelvis without Cont IMPRESSION: 4 mm obstructing stone of the proximal left ureter with moderate hydronephrosis. Electronically Signed: Adria Pittman MD at 18:02 EDT Tel , Service support ,
--- NOTE | 2020-07-11 16:47 | EX.ED.DYSGE1 ---
HPI History of Present Illness Chief Complaint: Flank Pain Narrative Narrative: 49-year-old female presenting with left flank pain. She states is been on and off for weeks. She has a history of kidney stones. She cannot recall who her neurologist is. She states that today at about 1:00 the pain is started and been constant. It is sharp in the left flank. It radiates around to the anterior abdomen. She has trouble finding position of comfort. She has nausea and gets diaphoretic at times. She denies fever or chills. She denies dysuria. [facility] Medical History Anxiety Aphasia Asthma Diabetic polyneuropathy Essential (primary) hypertension Hyperlipidemia Migraine Non-sustained ventricular tachycardia (06/03/18) Obesity Paroxysmal atrial fibrillation Paroxysmal atrial flutter Premature ventricular contractions Speech disturbance Syncope (06/03/18) Type I diabetes mellitus Home Medications epinephrine 0.3 mg IM DAILY PRN 01/20/15 [History Last Taken Unknown] aspirin 81 mg PO DAILY 02/23/15 [History Last Taken 02/20/17] cholecalciferol (vitamin D3) 250 mcg (10,000 unit) capsule 10,000 unit PO QHS PRN 01/29/17 [History Last Taken 02/20/17] lovastatin 40 mg tablet 40 mg PO QHS 01/29/17 [History Last Taken 02/20/17] magnesium oxide 500 mg capsule 500 mg PO QHS cap 01/29/17 [History Last Taken 02/20/17] trazodone 50 mg PO QHS PRN 02/22/17 [History Last Taken 02/19/17] multivitamin 1 ea PO QHS 04/02/17 [History Last Taken Unknown] metformin 1,000 mg tablet 1,000 mg PO BID 07/09/19 [History Last Taken Unknown] Saxaenda 3 mg SQ DAILY 05/30/20 [History Last Taken Unknown] duloxetine 20 mg PO DAILY 05/30/20 [History Last Taken Unknown] insulin aspart U-100 5 - 15 units SC TIDCM 05/30/20 [History Last Taken Unknown] metoprolol succinate 25 mg PO QHS 05/30/20 [History Last Taken Unknown] tetrabenazine 12.5 mg PO 4X/DAY 05/30/20 [History Last Taken Unknown] Allergy/AdvReac Type Severity Reaction Status Date / Time venom-honey bee Allergy Severe Anaphylaxis Verified 07/11/20 16:39 [bee venom (honey bee)] Influenza Virus Vaccines Allergy HIVES AT Verified 07/11/20 16:39 INJECTION SITE canagliflozin [From Invokana] AdvReac Nausea/Vom/ Verified 07/11/20 16:39 Diarrhea levofloxacin [From Levaquin] AdvReac Nausea/Vom/ Verified 07/11/20 16:39 Diarrhea neomycin AdvReac Other Verified 07/11/20 16:39 [From Neosporin ([id number])] neomycin sulfate AdvReac blisters Verified 07/11/20 16:39 [From Triple Antibiotic] and itching polymyxin B AdvReac blisters Verified 07/11/20 16:39 [From Triple Antibiotic] and itching polymyxin B sulfate AdvReac blisters Verified 07/11/20 16:39 [From Triple Antibiotic] and itching simvastatin AdvReac Nausea/Vom/ Verified 07/11/20 16:39 Diarrhea Family History Son Protein S deficiency patient is negative Surgical History H/O shoulder surgery History of ankle surgery History of carpal tunnel release History of hip surgery History of knee surgery History of radiofrequency ablation procedure for cardiac arrhythmia (07/2006) Social History Smoking Status: Former smoker alcohol intake: never ROS ROS ED Constitutional Constitutional ED: Denies chills or fever(s) Eyes Eyes: Denies blurry vision or change in vision ENT ENT ED: Denies ear pain, rhinorrhea or sore throat Cardiovascular Cardiovascular: Denies chest pain, palpitations or racing heartbeat Respiratory/Chest Respiratory/Chest: Denies cough, dyspnea or sputum Gastrointestinal Gastrointestinal: Reports abdominal pain and nausea Genitourinary Genitourinary ED: Denies dysuria or hematuria Musculoskeletal Musculoskeletal: Reports other Details: Left flank pain Integumentary Denies abscess or rash Neurologic Neurologic: Denies headache(s) or weakness EXAM Physical Exam Const Vital Signs: 07/11/20 16:37 Temperature 98.1 F Temperature Source Temporal Pulse Rate 97 Respiratory Rate 18 Blood Pressure 171/83 H Blood Pressure Mean 112 Pulse Ox 100 Oxygen Delivery Method Room Air Positive well nourished and obese Nutritional Appearance: obese HEENT Reports moist mucous membranes Negative for trauma or tenderness Eyes PERRL and EOMs intact bilaterally Resp normal respiratory effort and clear to auscultation bilaterally Cardio regular rate and regular rhythm GI normal to inspection, nondistended, normoactive bowel sounds and non-tender Palpation: soft Back/Spine General Back: CVA tenderness left Extremity normal to inspection General Extremety ED: Negative for edema or tenderness General Extremity: Negative for edema Neuro oriented x3 Sensorium / Orientation: alert Psych mental status grossly normal Skin no rashes or lesions noted and no wounds Discharge Plan Triage Chief Complaint: Flank Pain ED Provider: Francis Aguilera Dx/Rx/DC Orders Prescriptions: No Action lovastatin 40 mg tablet 40 mg PO QHS RF: 0 cholecalciferol (vitamin D3) 10,000 unit capsule 10,000 unit PO QHS PRN (Reason: other) RF: 0 magnesium oxide 500 mg capsule 500 mg PO QHS RF: 0 metformin 1,000 mg tablet 1,000 mg PO BID RF: 0 epinephrine 0.3 MG syringe 0.3 mg IM DAILY PRN (Reason: Allergies) RF: 0 aspirin 81 MG tablet,delayed release (DR/EC) 81 mg PO DAILY RF: 0 trazodone 50 MG tablet 50 mg PO QHS PRN (Reason: Insomnia) RF: 0 multivitamin 1 EACH tablet 1 ea PO QHS RF: 0 metoprolol succinate 25 MG tablet extended release 24 hr 25 mg PO QHS RF: 0 insulin aspart U-100 100 UNITS/ML insulin pen 5 - 15 units SC TIDCM RF: 0 tetrabenazine 12.5 MG tablet 12.5 mg PO 4X/DAY RF: 0 Saxaenda 3 mg SQ DAILY RF: 0 duloxetine 20 MG capsule 20 mg PO DAILY RF: 0 Primary Care Provider: Kasey Lewis
[2020-07-11] MEDS: HYDROmorphone 0.5 MG/0.5 ML SYRINGE IV ×2 (16:50→18:46)
[2020-07-11] MEDS: Ketorolac 15 MG/ML Vial IV (16:50)
[2020-07-11] MEDS: Ondansetron 4 MG/2 ML Vial IV (16:50)
[2020-07-11 16:57] VITALS: BP 140/101; PULSE 90; RESP 22; TEMP 36.7; O2SAT 98
[2020-07-11] MEDS: 0.9% Normal Saline 1,000 ML 999 ML IV ×2 (17:00→18:10)
[2020-07-11 18:48] LABS: Mucous, Urine 0 SEEN /hpf (<or=2+)
[2020-07-11 18:50] LABS: Color, Urine Brown (Yellow); Glucose, Dipstick Normal (Normal); Ketone-Dipstick 15 mg/dl (Negative); Leukocyte Esterase-Dipstick 100 /ul (Negative); Nitrite-Dipstick Positive (Negative); Occult Blood-Urine 250 /ul (Negative); Protein-Dipstick 100 mg/dl (Negative); Urine Bilirubin Dipstick Negative (Negative); Urine Clarity Cloudy (Clear); Urine Urobilinogen 1 mg/dl (Normal)
[2020-07-11 18:59] LABS: Bacteria RARE /hpf (None Seen); Red Blood Cells-Urine > 100 SEEN /hpf (0-5)
[2020-07-11 19:00] LABS: Squamous Epithelial Cells - UA 0-5 SEEN /hpf (5-10); White Blood Cells 5-10 SEEN /hpf (0-5)
[2020-07-11] MEDS: oxyCODONE 5 MG Tablet PO (19:45)
[2020-07-11] MEDS: Smz/Tmp Ds Tablet 1 TABLET PO (19:57)
[2020-07-11 20:00] VITALS: BP 145/82; PULSE 91; RESP 18; O2SAT 98
== END 2020-07-11 20:01 | disposition home or self-care (01) ==
PROVIDERS: Emergency Provider Student in an Organized Health Care Education/Training Program; PCP Family Medicine
DX: R10.9 Unspecified abdominal pain (principal); E66.9 Obesity, unspecified; E10.9 Type 1 diabetes mellitus without complications; I10 Essential (primary) hypertension; I48.92 Unspecified atrial flutter; I48.0 Paroxysmal atrial fibrillation; E78.5 Hyperlipidemia, unspecified; Z79.4 Long term (current) use of insulin; Z79.899 Other long term (current) drug therapy
CPT/HCPCS: 74176; 81001; 87086; 87088; 96361; 96374; 96375; 96376; 99284; J7030; A4216; J2405

== ENCOUNTER → 2020-07-13 12:29 | Outpatient (CLI) | payer OTHER, SELFPAY ==
[2020-07-11 16:37] VITALS: BMI 41.2
--- NOTE | 2020-07-13 12:49 | EKG12_ITS ---
Test Reason : PREOP Blood Pressure : / mmHG Vent. Rate : 087 BPM Atrial Rate : 087 BPM P-R Int : 162 ms QRS Dur : 076 ms QT Int : 364 ms P-R-T Axes : 044 017 046 degrees QTc Int : 438 ms Normal sinus rhythm Low voltage QRS Borderline ECG Confirmed by FERNIE LOPEZ, ANA ([id number]), business editor EDITA CHANDRA ([id number]) on 07/14/2020 12:38:20 PM Referred By: Ben Luna Confirmed By:ANA ENCISO MD
[2020-07-13 13:00] LABS: Hematocrit 40.4 % (37-47); Hemoglobin 13.3 g/dL (12.0-15.0); Mean Corp Hgb Conc 32.9 g/dL (32-36); Mean Corpuscular Hgb 30.8 pg (27.0-32.0); Mean Corpuscular Volume 93.5 fL (81-99); Platelet Count 348 K/mm3 (150-450); RBC Distribution Width CV 12.3 % (11.6-14.6); RBC Distribution Width SD 42.5 fl (35.1-43.9); Red Blood Count 4.32 M/mm3 (4.2-5.4); White Blood Count 8.4 K/mm3 (4.4-11.0)
[2020-07-13 13:26] LABS: Anion Gap 5 (5-15); BUN 8 mg/dL (7-18); BUN/Creat Ratio 10.6 RATIO (10-20); Calcium,Total 9.2 mg/dL (8.5-10.1); Chloride 107 mmol/L (98-107); Creatinine, Serum 0.75 mg/dL (0.55-1.02); EST Glomerular Filtration Rate 87 mL/min (>60); Est Glom Filt Rate - Afr Amer 105 mL/min (>60); Glucose 100 mg/dL (74-106); Sodium Level 139 mmol/L (136-145)
== END ==
LOC: PSN 12:32
PROVIDERS: PCP Family Medicine; Referring Provider Urology; Visit Provider Urology
DX: Z01.812 Encounter for preprocedural laboratory examination (principal); I49.9 Cardiac arrhythmia, unspecified
CPT/HCPCS: 36415; 80048; 85027; 87635; 93005; C9803; U0005; U0003

== ENCOUNTER → 2020-08-11 08:41 | Outpatient (CLI) | payer OTHER, SELFPAY ==
--- NOTE | 2020-08-11 08:42 | RAD_ITS ---
STUDY: X-RAY - ABDOMEN/PELVIS REASON FOR EXAM: Female, 49 years old. CALCULUS OF KIDNEY . Post laser therapy. TECHNIQUE: Single AP view of the abdomen / pelvis. COMPARISON: None. FINDINGS: Normal visualized lung bases. There is a moderate amount of colonic fecal material. Prior cholecystectomy. Normal soft tissue structures. Normal visualized osseous structures. RAD/Abdomen Single View IMPRESSION: No acute abnormality is seen. Electronically Signed: Abdirahman Salas MD at 12:23 EDT , Service support ,
== END ==
LOC: RAD 08:42
PROVIDERS: PCP Family Medicine; Referring Provider Nurse Practitioner Adult Health; Visit Provider Nurse Practitioner Adult Health
DX: N20.1 Calculus of ureter (principal)
CPT/HCPCS: 74018

== ENCOUNTER → 2020-08-22 13:01 | Outpatient (CLI) | payer OTHER, SELFPAY ==
--- NOTE | 2020-08-22 13:03 | EKG12_ITS ---
Test Reason : PREOP Blood Pressure : / mmHG Vent. Rate : 089 BPM Atrial Rate : 089 BPM P-R Int : 160 ms QRS Dur : 082 ms QT Int : 370 ms P-R-T Axes : 037 005 046 degrees QTc Int : 450 ms Normal sinus rhythm Low voltage QRS Borderline ECG Confirmed by ARLENE LOPEZ, JANE ([id number]), fashion editor EDITA CHANDRA ([id number]) on 08/23/2020 7:38:11 AM Referred By: Brian Constantino Confirmed By:JANE JACOBS MD
[2020-08-22 14:04] LABS: Hematocrit 41.9 % (37-47); Hemoglobin 13.7 g/dL (12.0-15.0); Mean Corp Hgb Conc 32.7 g/dL (32-36); Mean Corpuscular Hgb 30.6 pg (27.0-32.0); Mean Corpuscular Volume 93.5 fL (81-99); Mean Platelet Vol. 9.4 fl (6.2-12.0); Platelet Count 357 K/mm3 (150-450); RBC Distribution Width CV 12.6 % (11.6-14.6); RBC Distribution Width SD 43.5 fl (35.1-43.9); Red Blood Count 4.48 M/mm3 (4.2-5.4); White Blood Count 7.8 K/mm3 (4.4-11.0)
[2020-08-22 14:36] LABS: Anion Gap 7 (5-15); BUN 9 mg/dL (7-18); BUN/Creat Ratio 11.8 RATIO (10-20); Calcium,Total 8.9 mg/dL (8.5-10.1); Chloride 103 mmol/L (98-107); Creatinine, Serum 0.76 mg/dL (0.55-1.02); EST Glomerular Filtration Rate 86 mL/min (>60); Est Glom Filt Rate - Afr Amer 104 mL/min (>60); Glucose 179 mg/dL (74-106); Potassium 3.7 mmol/L (3.5-5.1); Sodium Level 136 mmol/L (136-145)
== END ==
LOC: PSN 13:02
PROVIDERS: PCP Family Medicine; Referring Provider Physician Assistant; Visit Provider Physician Assistant
DX: Z01.810 Encounter for preprocedural cardiovascular examination (principal); Z11.59 Encounter for screening for other viral diseases
CPT/HCPCS: 36415; 80048; 83036; 85027; 87426; 93005; C9803

== ENCOUNTER → 2021-01-18 16:56 | Outpatient (CLI) | payer OTHER, SELFPAY | PROVIDERS: PCP Family Medicine; Visit Provider Family Medicine | DX: Z20.828 Contact with and (suspected) exposure to other viral communicable diseases (principal) | CPT/HCPCS: 87633; 87635; U0005; U0003 ==

== ENCOUNTER 2021-02-09 16:59 | Emergency (ER) | payer OTHER, SELFPAY ==
[2021-02-09 17:01] VITALS: BP 142/86; PULSE 108; RESP 16; TEMP 37.2; O2SAT 100; BMI 38.5
[2021-02-09] MEDS: oxyCODONE 5 MG Tablet PO (17:18)
--- NOTE | 2021-02-09 17:25 | RAD_ITS ---
STUDY: X-RAY - UNILATERAL RIBS ( LEFT ) WITH CHEST REASON FOR EXAM: Female, 50 years old. fall, pain PT SLIPPED AND FELL IN HER KITCHEN. C/O LEFT RIB PAIN TECHNIQUE - RIBS: 4 view(s) of the ribs. TECHNIQUE - CHEST: Single PA view of the chest. COMPARISON: Chest x-ray and rib series dated April 13, 2019 FINDINGS - RIBS: Normal visualized ribs without a demonstrated fracture. FINDINGS - CHEST: The lungs are clear and expanded. There is no demonstrated pleural abnormality. Normal size heart. Normal mediastinum and dontrell. Normal visualized pulmonary arteries. There is atherosclerotic tortuosity of the aortic arch and descending thoracic aorta. There are diffuse degenerative changes of the visualized thoracic spine. Normal visualized ribs, clavicles, and shoulders. There is no demonstrated abnormality of the visualized soft tissue structures of the upper abdomen. RAD/Ribs Uni Min 3V w/PA Chest IMPRESSION: RIBS: Normal x-ray examination of the ribs. CHEST: Degenerative changes, as described above. No demonstrated acute cardiopulmonary process. Electronically Signed: Jameel Sears MD at 18:38 EST , Service support ,
--- NOTE | 2021-02-09 17:33 | EDS_ITS ---
HPI HPI - Fall History of Present Illness Chief Complaint: Fall Informant: patient Narrative Narrative: About 4 5 hours ago, patient slipped in her house onto a tile floor and hit her left ribs. She has pain in that area. No other injury. Did not hit her head. No loss of consciousness. She has slipped on a wet area that she had cleaned. This was a mechanical fall and not syncope. She has a history of atrial fibrillation/flutter but had ablation and is not on anticoagulation other than a baby aspirin. It does hurt to breathe or move. No cough. No sputum. No hemoptysis. No nausea vomiting. No difficulty urinating. [facility] Medical History Anxiety Aphasia Asthma Diabetic polyneuropathy Essential (primary) hypertension Hyperlipidemia Migraine Non-sustained ventricular tachycardia (06/03/18) Obesity Paroxysmal atrial fibrillation Paroxysmal atrial flutter Premature ventricular contractions Speech disturbance Syncope (06/03/18) Type I diabetes mellitus Home Medications epinephrine 0.3 mg IM DAILY PRN 01/20/15 [History Last Taken Unknown] aspirin 81 mg PO DAILY 02/23/15 [History Last Taken 02/20/17] cholecalciferol (vitamin D3) 250 mcg (10,000 unit) capsule 10,000 unit PO QHS PRN 01/29/17 [History Last Taken 02/20/17] lovastatin 40 mg tablet 40 mg PO QHS 01/29/17 [History Last Taken 02/20/17] magnesium oxide 500 mg capsule 500 mg PO QHS cap 01/29/17 [History Last Taken 02/20/17] trazodone 50 mg PO QHS PRN 02/22/17 [History Last Taken 02/19/17] multivitamin 1 ea PO QHS 04/02/17 [History Last Taken Unknown] metformin 1,000 mg tablet 1,000 mg PO BID 07/09/19 [History Last Taken Unknown] Saxaenda 3 mg SQ DAILY 05/30/20 [History Last Taken Unknown] duloxetine 20 mg PO DAILY 05/30/20 [History Last Taken Unknown] insulin aspart U-100 5 - 15 units SC TIDCM 05/30/20 [History Last Taken Unknown] tetrabenazine 25 mg PO BID 05/30/20 [History Last Taken Unknown] ondansetron HCl [Zofran] 4 mg PO Q8H #14 tab 07/11/20 [Rx Last Taken Unknown] tamsulosin [Flomax] 0.4 mg PO DAILY #7 cap 07/11/20 [Rx Last Taken Unknown] tetrabenazine 12.5 mg PO DAILY 07/11/20 [History Last Taken Unknown] metoprolol succinate 25 mg tablet,extended release 24 hr 25 mg PO QHS #90 tab 07/18/20 [Rx Last Taken Unknown] oxycodone-acetaminophen [Percocet] 1 tab PO Q6H PRN 3 Days #12 tab 02/09/21 [Rx Last Taken Unknown] Allergy/AdvReac Type Severity Reaction Status Date / Time venom-honey bee Allergy Severe Anaphylaxis Verified 02/09/21 17:03 [bee venom (honey bee)] Influenza Virus Vaccines Allergy HIVES AT Verified 02/09/21 17:03 INJECTION SITE canagliflozin [From Invokana] AdvReac Nausea/Vom/ Verified 02/09/21 17:03 Diarrhea levofloxacin [From Levaquin] AdvReac Nausea/Vom/ Verified 02/09/21 17:03 Diarrhea neomycin AdvReac Other Verified 02/09/21 17:03 [From Neosporin ([id number])] neomycin sulfate AdvReac blisters Verified 02/09/21 17:03 [From Triple Antibiotic] and itching polymyxin B AdvReac blisters Verified 02/09/21 17:03 [From Triple Antibiotic] and itching polymyxin B sulfate AdvReac blisters Verified 02/09/21 17:03 [From Triple Antibiotic] and itching simvastatin AdvReac Nausea/Vom/ Verified 02/09/21 17:03 Diarrhea Family History Son Protein S deficiency patient is negative Surgical History H/O shoulder surgery History of ankle surgery History of carpal tunnel release History of hip surgery History of knee surgery History of radiofrequency ablation procedure for cardiac arrhythmia (07/2006) Social History Smoking Status: Former smoker alcohol intake: never ROS ROS ED Constitutional Constitutional ED: Denies fever(s) Eyes Eyes: Denies blurry vision ENT ENT ED: Denies rhinorrhea or sore throat Cardiovascular Cardiovascular: Reports chest pain; Denies palpitations or racing heartbeat Respiratory/Chest Respiratory/Chest: Denies cough or dyspnea Gastrointestinal Gastrointestinal: Denies abdominal pain, nausea or vomiting Genitourinary Genitourinary ED: Denies hematuria Musculoskeletal Musculoskeletal: Denies arthralgias, back pain, myalgias or neck pain Integumentary Reports Abrasions; Denies rash Neurologic Neurologic: Denies headache(s) Hematologic/Lymphatic Hematologic/Lymphatic: Denies easy bleeding or easy bruising Allergic/Immunologic Allergic/Immunologic ED: Denies mouth swelling or tongue swelling EXAM Physical Exam Const Vital Signs: 02/09/21 17:01 02/09/21 17:20 Temperature 98.9 F Temperature Source Temporal Pulse Rate 108 H Respiratory Rate 16 Respiratory Effort Normal Non-Labored Respiratory Depth Normal Respiratory Pattern Tachypnea Blood Pressure 142/86 H Blood Pressure Mean 104 Pulse Ox 100 Oxygen Delivery Method Room Air Room Air Patient does look a bit uncomfortable. Positive well nourished, well developed and obese General Appearance ED: well developed Nutritional Appearance: obese HEENT Reports normocephalic atraumatic Eyes General Eye ED: Negative for pale conjunctiva Neck full ROM and supple Chest Wall Chest Narrative: She does have a slight jeannie/contusion on the left side of her chest wall. No subcu air though. No crepitance with breathing. She does have tenderness in that area. Resp normal respiratory effort Resp Narrative: It does hurt to breathe but she makes good effort. Her lungs sound good and equal both sides. Auscultation: Negative for rales, rhonchi or wheezes Cardio regular rate and regular rhythm GI non-tender, non-distended and no masses Auscultation: normoactive bowel sounds Palpation: soft; Negative for guarding or rebound tenderness present Back/Spine no CVA tenderness Extremity normal to inspection and full ROM Neuro Sensorium / Orientation: alert Psych mental status grossly normal Skin Skin Narrative: Contusion left chest wall as above. MDM MDM MDM Narrative Medical decision making narrative: Chest x-ray looked at by me and read by rad iology along with rib series does not show signs of acute fracture. However, her symptoms are consistent with that. We discussed reasons to return and homecare. We will get her meds for pain. According to online prescribing, her last narcotic was back in August. Radiography Diagnostic Testing: Clinical Impression(s) from Imaging Studies Ribs w/Chest X-Ray 02/09/21 17:25 IMPRESSION: RIBS: Normal x-ray examination of the ribs. CHEST: Degenerative changes, as described above. No demonstrated acute cardiopulmonary process. Electronically Signed: Jaemel Sears MD at 18:38 EST , Service support , Discharge Plan Triage Chief Complaint: Fall ED Provider: Sumit Pichardo Dx/Rx/DC Orders Clinical Impression: Fall from slipping, Contusion of left chest wall Instructions: ED Contusion, Rib Prescriptions: New oxycodone-acetaminophen [Percocet] 5-325 mg tablet 1 tab PO Q6H PRN (Reason: pain) 3 Days Qty: 12 RF: 0 No Action lovastatin 40 mg tablet 40 mg PO QHS RF: 0 cholecalciferol (vitamin D3) 10,000 unit capsule 10,000 unit PO QHS PRN (Reason: other) RF: 0 magnesium oxide 500 mg capsule 500 mg PO QHS RF: 0 metformin 1,000 mg tablet 1,000 mg PO BID RF: 0 epinephrine 0.3 MG syringe 0.3 mg IM DAILY PRN (Reason: Allergies) RF: 0 aspirin 81 MG tablet,delayed release (DR/EC) 81 mg PO DAILY RF: 0 trazodone 50 MG tablet 50 mg PO QHS PRN (Reason: Insomnia) RF: 0 multivitamin 1 EACH tablet 1 ea PO QHS RF: 0 insulin aspart U-100 100 UNITS/ML insulin pen 5 - 15 units SC TIDCM RF: 0 tetrabenazine 12.5 MG tablet 25 mg PO BID RF: 0 Saxaenda 3 mg SQ DAILY RF: 0 duloxetine 20 MG capsule 20 mg PO DAILY RF: 0 tetrabenazine 12.5 mg Tablet 12.5 mg PO DAILY RF: 0 ondansetron HCl [Zofran] 4 mg tablet 4 mg PO Q8H Qty: 14 RF: 0 tamsulosin [Flomax] 0.4 mg capsule 0.4 mg PO DAILY Qty: 7 RF: 0 metoprolol succinate 25 mg tablet extended release 24 hr 25 mg PO QHS Qty: 90 RF: 3 Primary Care Provider: Kasey Lewis Referrals: Kasey Lewis MD [Primary Care Provider] - 1 Week if not improving Disposition Disposition: Home, Self Care
[2021-02-09 20:33] VITALS: BP 142/66; PULSE 84; RESP 16; O2SAT 97
== END 2021-02-09 20:34 | disposition home or self-care (01) ==
PROVIDERS: Emergency Provider Emergency Medicine; PCP Family Medicine
DX: S20.212A Contusion of left front wall of thorax, initial encounter (principal); W01.0XXA Fall on same level from slipping, tripping and stumbling without subsequent striking against object, initial encounter; Y93.E5 Activity, floor mopping and cleaning; Y92.009 Unspecified place in unspecified non-institutional (private) residence as the place of occurrence of the external cause; E10.42 Type 1 diabetes mellitus with diabetic polyneuropathy; I48.0 Paroxysmal atrial fibrillation; E78.5 Hyperlipidemia, unspecified; I10 Essential (primary) hypertension; J45.909 Unspecified asthma, uncomplicated; E66.9 Obesity, unspecified; Z79.4 Long term (current) use of insulin; Z79.899 Other long term (current) drug therapy; Z79.82 Long term (current) use of aspirin; Z87.891 Personal history of nicotine dependence
CPT/HCPCS: 71101; 99283

== ENCOUNTER 2021-02-23 07:58 | Outpatient (CLI) | payer OTHER, SELFPAY | END 2021-02-23 23:59 | disposition short-term general hospital (02) | LOC: LABSPEC 07:59 | PROVIDERS: Visit Provider Family Medicine | DX: U07.1 COVID-19 (principal) | CPT/HCPCS: 87635; U0003; U0005 ==

== ENCOUNTER 2021-03-01 11:59 | Outpatient (CLI) | payer OTHER, SELFPAY ==
[2021-03-01] MEDS: 0.9% Saline Lock 10 ML Syringe IV (12:19)
[2021-03-01 12:21] VITALS: BP 141/91; PULSE 94; RESP 16; TEMP 37; O2SAT 98; BMI 37.8
[2021-03-01 12:56] VITALS: BP 134/86; PULSE 83; RESP 16; TEMP 36.6; O2SAT 100
[2021-03-01] MEDS: DiphenhydrAMINE 50 MG/ML Syringe IV (13:03)
--- NOTE | 2021-03-01 13:03 | NURSING ---
Pt c/o generalized itching. No rash or hives noted. Benadryl administered per order.
[2021-03-01 13:56] VITALS: BP 129/85; PULSE 87; RESP 16; TEMP 36.8; O2SAT 100
== END 2021-03-01 23:59 | disposition home or self-care (01) ==
LOC: MS3OUT 12:00 → MS3 12:00
PROVIDERS: Referring Provider Nurse Practitioner Acute Care; Visit Provider Nurse Practitioner Acute Care
DX: U07.1 COVID-19 (principal)
CPT/HCPCS: J7050; M0245; Q0245; A4216

== ENCOUNTER 2021-04-17 15:15 | Outpatient (CLI) | payer OTHER, SELFPAY ==
--- NOTE | 2021-04-17 15:20 | RAD_ITS ---
STUDY: XR Shoulder Min 2 Views REASON FOR EXAM: Female, 50 years old. PAIN TECHNIQUE: XR Shoulder Min 2 Views LEFT COMPARISON: None. FINDINGS: Normal glenohumeral articulation. Normal acromioclavicular joint. Normal acromion. Normal humeral head and visualized proximal humerus. The soft tissue structures are unremarkable. Normal visualized pulmonary apex. RAD/Shoulder min 2 Views IMPRESSION: There are no acute findings of the shoulder. Electronically Signed: John Crews MD at 15:36 EST ,
== END 2021-04-17 23:59 | disposition home or self-care (01) ==
LOC: MTRAD 15:17
PROVIDERS: PCP Family Medicine; Referring Provider Family Medicine; Visit Provider Family Medicine
DX: M25.511 Pain in right shoulder (principal)
CPT/HCPCS: 73030

== ENCOUNTER → 2021-06-07 | Outpatient (CLI) | payer OTHER, SELFPAY ==
--- NOTE | 2021-06-07 11:32 | RAD_ITS ---
STUDY: X-RAY - UNILATERAL RIBS ( RIGHT ) WITH CHEST REASON FOR EXAM: Female, 50 years old. Follow-up horse. Pain. TECHNIQUE - RIBS: 4 view(s) of the ribs. TECHNIQUE - CHEST: Single frontal view of the chest. COMPARISON: 02/09/2021. FINDINGS - RIBS: Normal visualized ribs without a demonstrated fracture. FINDINGS - CHEST: The lungs are clear and expanded. There is no demonstrated pleural abnormality. Normal size heart. Normal mediastinum and dontrell. Normal visualized pulmonary arteries. Normal visualized aortic arch and descending thoracic aorta. Normal visualized thoracic spine. Normal visualized ribs, clavicles, and shoulders. There is no demonstrated abnormality of the visualized soft tissue structures of the upper abdomen. RAD/Ribs Uni Min 3V w/PA Chest IMPRESSION: RIBS: Normal x-ray examination of the ribs. CHEST: Normal x-ray examination of the chest. Electronically Signed: Brian Saunders MD at 11:56 EDT ,
== END | disposition home or self-care (01) ==
LOC: MTRAD 11:30
PROVIDERS: PCP Family Medicine; Referring Provider Family Medicine; Visit Provider Family Medicine
DX: R07.81 Pleurodynia (principal)
CPT/HCPCS: 71101

== ENCOUNTER → 2021-07-19 | Outpatient (CLI) | payer OTHER, SELFPAY ==
--- NOTE | 2021-07-19 15:20 | BI_ITS ---
MAMMOGRAPHY - BILATERAL SCREENING REASON FOR EXAM: Female, 50 years old. Routine annual screening examination. PERTINENT HISTORY: Non-contributory. TECHNIQUE: Digital bilateral breast rayshawn (3D mammographic acquisition) in the CC and MLO projections. 2-D mediolateral oblique (MLO) and craniocaudad (CC) views of both breasts were obtained. CAD: Full Field Digital Mammography with Computer Added Detection was performed. COMPARISON: Comparison is made with prior study dated 11/20/2018 and 05/21/2007. FINDINGS: Breast Composition: The breasts are almost entirely fatty. There are no dominant masses or suspicious calcifications. Stable small benign appearing bilateral axillary lymph nodes. No other significant abnormalities are identified. There has been no significant change since the prior study. BI/SCRN MAMM (CAD)W/RAYSHAWN BILAT IMPRESSION: Stable bilateral screening mammogram. Yearly follow-up mammogram recommended. (A) ASSESSMENT CATEGORY: BIRADS Category 2: Benign. A letter regarding these results will be sent to the patient by the facility within 30 days. Approximately 10% of breast cancers are not detected by mammography. A normal mammogram should not delay biopsy of a clinically suspicious abnormality. [id number] Electronically Signed: Abdirahman Salas MD at 16:27 EDT ,
== END | disposition home or self-care (01) ==
LOC: OPBI 15:18
PROVIDERS: PCP Family Medicine; Referring Provider Obstetrics & Gynecology; Visit Provider Obstetrics & Gynecology
DX: Z12.31 Encounter for screening mammogram for malignant neoplasm of breast (principal)
CPT/HCPCS: 77063; 77067

== ENCOUNTER → 2021-12-27 | Outpatient (CLI) | payer OTHER, SELFPAY ==
[2021-12-27 13:03] LABS: Cholesterol 202 mg/dL (200); High Density Lipoprotein 40 mg/dL; Triglycerides 230 mg/dL; Very Low Density Lipoprotein 46 mg/dL (5-40)
== END | disposition home or self-care (01) ==
LOC: BFHLAB 09:21
PROVIDERS: PCP Family Medicine; Visit Provider Family Medicine
DX: E11.9 Type 2 diabetes mellitus without complications (principal)
CPT/HCPCS: 36415; 80061

== ENCOUNTER → 2022-01-08 | Outpatient (CLI) | payer OTHER, SELFPAY ==
[2022-01-08 12:24] LABS: Absolute Lymphocyte Count 2.12 X10^3/uL (0.83-4.51); Absolute Neutrophil Count 4.3 X10^3/uL (2.0-7.7); Basophil# 0.04 X10^3/uL; Basophil% 0.6 % (0-1); Eosinophil# 0.26 X10^3/uL; Eosinophils% 3.6 % (0-5); Hematocrit 40.5 % (37-47); Hemoglobin 13.4 g/dL (12.0-15.0); Lymphocyte # 2.12 X10^3/ul (0.83-4.51); Lymphocyte % 29.7 % (19-41); Mean Corp Hgb Conc 33.1 g/dL (32-36); Mean Corpuscular Hgb 31.2 pg (27.0-32.0); Mean Corpuscular Volume 94.2 fL (81-99); Mean Platelet Vol. 9.4 fl (6.2-12.0); Monocyte# 0.45 X10^3/uL; Monocyte% 6.3 % (0-10); NRBC Flagged by Analyzer 0 % (0-5); Neutrophil # 4.26 X10^3/uL (2.7-7.7); Neutrophil % 59.5 % (47-70); Platelet Count 354 K/mm3 (150-450); RBC Distribution Width SD 44.2 fl (35.1-43.9); White Blood Count 7.2 K/mm3 (4.4-11.0)
[2022-01-08 13:44] LABS: Anion Gap 9 (5-15); BUN 7 mg/dL (7-18); BUN/Creat Ratio 8.9 RATIO (10-20); Calcium,Total 8.6 mg/dL (8.5-10.1); Chloride 107 mmol/L (98-107); Creatinine, Serum 0.79 mg/dL (0.55-1.02); EST Glomerular Filtration Rate 82 mL/min (>60); Est Glom Filt Rate - Afr Amer 99 mL/min (>60); Glucose 176 mg/dL (74-106); Potassium 3.4 mmol/L (3.5-5.1); Sodium Level 139 mmol/L (136-145); T4 Free Direct 0.92 ng/dL (0.76-1.46); Thyroid Stim Hormone (TSH) 1.58 uIU/mL (0.358-3.74)
== END | disposition home or self-care (01) ==
LOC: BFHLAB 09:30
PROVIDERS: PCP Family Medicine; Visit Provider Family Medicine
DX: U07.1 COVID-19 (principal); E11.9 Type 2 diabetes mellitus without complications; R53.83 Other fatigue
CPT/HCPCS: 36415; 80048; 84439; 84443; 85025

== ENCOUNTER → 2022-03-01 | Outpatient (CLI) | payer OTHER, SELFPAY ==
[2022-03-01 18:42] LABS: Anion Gap 9 (5-15); BUN 12 mg/dL (7-18); BUN/Creat Ratio 16.3 RATIO (10-20); Calcium,Total 9.3 mg/dL (8.5-10.1); Chloride 104 mmol/L (98-107); Creatinine, Serum 0.74 mg/dL (0.55-1.02); EST Glomerular Filtration Rate 88 mL/min (>60); Est Glom Filt Rate - Afr Amer 107 mL/min (>60); Glucose 120 mg/dL (74-106); Potassium 3.7 mmol/L (3.5-5.1); Sodium Level 140 mmol/L (136-145)
== END | disposition home or self-care (01) ==
LOC: BFHLAB 16:21
PROVIDERS: PCP Family Medicine; Visit Provider Family Medicine
DX: R19.7 Diarrhea, unspecified (principal)
CPT/HCPCS: 36415; 80048

== ENCOUNTER → 2022-03-02 | Outpatient (CLI) | payer OTHER, SELFPAY | END | disposition home or self-care (01) | LOC: BFHLAB 15:08 → LABSPEC 15:08 | PROVIDERS: PCP Family Medicine; Visit Provider Family Medicine | DX: R19.7 Diarrhea, unspecified (principal) | CPT/HCPCS: 83630; 87177; 87209; 87493; 87506 ==

== ENCOUNTER → 2022-06-21 | Outpatient (CLI) | payer OTHER, SELFPAY ==
[2022-06-21 15:55] LABS: Absolute Lymphocyte Count 2.75 X10^3/uL (0.83-4.51); Absolute Neutrophil Count 3.8 X10^3/uL (2.0-7.7); Basophil# 0.05 X10^3/uL; Basophil% 0.7 % (0-1); Eosinophil# 0.34 X10^3/uL; Eosinophils% 4.5 % (0-5); Hematocrit 38.8 % (37-47); Hemoglobin 13.2 g/dL (12.0-15.0); Lymphocyte # 2.75 X10^3/ul (0.83-4.51); Lymphocyte % 36.8 % (19-41); Mean Corpuscular Hgb 30.9 pg (27.0-32.0); Mean Corpuscular Volume 90.9 fL (81-99); Mean Platelet Vol. 9.3 fl (6.2-12.0); Monocyte% 6.7 % (0-10); NRBC Flagged by Analyzer 0 % (0-5); Neutrophil % 50.8 % (47-70); Platelet Count 341 K/mm3 (150-450); RBC Distribution Width CV 12.8 % (11.6-14.6); RBC Distribution Width SD 41.8 fl (35.1-43.9); Red Blood Count 4.27 M/mm3 (4.2-5.4); White Blood Count 7.5 K/mm3 (4.4-11.0)
[2022-06-21 16:53] LABS: Erythrocyte Sedimentation Rate 22 mm/hr (0-30)
[2022-06-21 17:10] LABS: ALB/GLOB Ratio 0.9 RATIO (0.9-2.4); AST(SGOT) 33 U/L (15-37); Alanine Aminotransfer ALT/SGPT 49 U/L (13-56); Albumin, Serum 3.2 g/dL (3.2-5.0); Alkaline Phosphatase 115 U/L (45-117); Anion Gap 7 (5-15); BUN 10 mg/dL (7-18); BUN/Creat Ratio 13.5 RATIO (10-20); CRP 5.55 mg/L (0.0-3.0); Chloride 104 mmol/L (98-107); Creatinine, Serum 0.74 mg/dL (0.55-1.02); EST Glomerular Filtration Rate 88 mL/min (>60); Est Glom Filt Rate - Afr Amer 106 mL/min (>60); Globulin 3.7 g/dL (2.2-4.2); Glucose 237 mg/dL (74-106); Lipase 35 U/L (13-75); Potassium 3.7 mmol/L (3.5-5.1); Protein, Total 6.9 g/dL (6.4-8.2); Sodium Level 137 mmol/L (136-145)
[2022-06-25 13:07] LABS: Anti-Centromere B Ab <0.2 AI (0.0-0.9); Anti-Chromatin <0.2 AI (0.0-0.9); Anti-Jo <0.2 AI (0.0-0.9); Anti-Scleroderma-70 AB <0.2 AI (0.0-0.9); Anti-dsDNA Ab <1 IU/mL (0-9); RNP Ab <0.2 AI (0.0-0.9); SJOGREN'S Anti-SS-A test < 0.2 AI (0.0-0.9); SJOGREN'S Anti-SS-B test < 0.2 AI (0.0-0.9); Smith Ab <0.2 AI (0.0-0.9)
[2022-06-25 15:08] LABS: Cytoplasmic Ab (C-ANCA) <1:20 titer (Neg:<1:20); Endomysial Antibody IgA Negative (Negative); Immunoglobulin A 333 mg/dL (87-352); Perinuclear Ab (P-ANCA) <1:20 titer (Neg:<1:20); t-Transglutaminase IgA <2 U/mL (0-3)
== END | disposition home or self-care (01) ==
PROVIDERS: PCP Family Medicine; Visit Provider Nurse Practitioner Adult Health
DX: R19.7 Diarrhea, unspecified (principal); R10.12 Left upper quadrant pain
CPT/HCPCS: 36415; 80053; 82784; 83516; 83690; 85025; 85652; 86140; 86225; 86235; 86255; 86256

== ENCOUNTER 2022-08-29 08:30 | Outpatient (RCR) | payer OTHER, SELFPAY ==
--- NOTE | 2022-07-31 09:29 | HP.PTEVAL ---
Patient's Visit Information DEIDRA CALLEJAS is a 51 year old F referred to Physical Therapy by Dr. Kasey Lewis MD with a diagnosis of BACK AND LEG PAIN. Date of Evaluation: 07/31/22 Physical Therapist: Michael Hurtado, PT, Cert MDT, OCS - Visit Plan Frequency: 2x /Week Duration: 4 Weeks Plan: PT INTERVETIONS RAISA EX'S ,DLS ,POSTURAL EX'S ,POSTURE/BODY MECHANICS AND MODLATIES - Subjective This 51 y/o female presents to physical therapy for lumbar radicular symptoms. Patient has had symptoms in back and leg many years which has progressively worse. Patient has had management pain in lumbar last session ~ 2weeks ago July 19. Patient has h/o HNP lumbar ~ 5 years ago. Patient has had therapy in lumbar prior. Location symmetrical lumbar occasional right leg to foot. Aggravating walking, sitting, standing ,bending/lifting. Alleviating factors stretching extension and heat. Patient gabapentin for neuropathy for feet. Coughing/sneezing- Bowel/bladder-. Denies paresthesia/tingling -. Patient has difficulty with sleeping but patient takes sleep aides. Patient MD want to try MRI. Patient pain affects QOL and function . Patient goals to have no pain. HOBBIES : riding horses. VOCATION: Home. SOCIAL: - Pain Bilateral Back Pain Intensity (Out of 10): 4 Pain Intensity Range: 10 - Objective POSTURE: WFL. GAIT: reciprocal pattern. NEURO: denies paresthesia/tingling ,reflexes L3-4,L4-5 ,L5-S1 1/3. SYMMTRIES: align. FLEXABLITY: hamstrings WFL. MMT: quads/hams 4/5 ,hip flexion/abduction 4/5 ,ankle 5/5. LUMBAR ROM: flexion mid min loss ,extension MIN loss ,side glides min loss - Special Tests L/S Slump test left side: Negative L/S Slump test right side: Negative L/S Left Straight Leg Raise: Negative L/S Right Straight Leg Raise: Negative Lumbar Standing: Flexion - Mechanical Response: No effect Lumbar Standing: Flexion - Symptoms During Testing: Increases Lumbar Standing: Flexion - Symptoms After Testing: No worse Lumbar Standing: Extension - Mechanical Response: No effect Lumbar Standing: Extension - Symptoms During Testing: Decreases Lumbar Standing: Extension - Symptoms After Testing: Better Lumbar Standing: Right Side Glides - Mechanical Response: No effect Lumbar Standing: Right Side [place] - Symptoms During Testing: No effect Lumbar Standing: Right Side [place] - Symptoms After Testing: No effect Lumbar Standing: Left Side [place] - Mechanical Response: No effect Lumbar Standing: Left Side [place] - Symptoms During Testing: No effect Lumbar Standing: Left Side [place] - Symptoms After Testing: No effect Lumbar Lying: Flexion - Mechanical Response: No effect Lumbar Lying: Flexion - Symptoms During Testing: Increases Lumbar Lying: Flexion - Symptoms After Testing: No worse Lumbar Lying: Extension - Mechanical Response: No effect Lumbar Lying: Extension - Symptoms During Testing: Increases Lumbar Lying: Extension - Symptoms After Testing: Better Comments:: endrange - Balance/Special Test Scores Oswestry Low Back Score: 30 - Goals Goal 1:: I with HEP for back . Goal Time Frame: 4-6 Weeks Goal 2:: Patient to demonstrate 50% improvement with less pain and improved function Goal Time Frame: 4-6 Weeks Goal 3:: Patient to improve lumbar ROM for function of recovery to do housework chores and horses Goal Time Frame: 4-6 Weeks Goal 4:: Patient to improve back oswestry score by 5 points or > to improve QOL and function Goal Time Frame: 4-6 Weeks - Rehabilitation Potential Physical Therapy Diagnosis: This patient has lumbar derangement with disc involvement with symptoms worse with positioning ,motion testing better with extension and correction of posture thus benefit from skilled PT Rehabilitation Potential: Good - Anticipated Interventions Patient/Client Instruction: Educate patient on: Condition, Plan of Care For the Purpose of:: To decrease pain, To improve nutrient delivery to tissue, To improve muscle performance and motor function, To improve ability to perform ADL's, To increase tolerance to activity/condition/position, To improve ability of physical actions for home/community/work/leisure, To improve health of tissue, To decrease soft tissue restriction, To increase flexibility/ROM, To prevent re-injury Therapeutic Exercise to Include: Strength training, Body mechanics, Postural training, Flexibilty training, Dynamic Lumbar Stabilization, Raisa Exercises For the Purpose of:: To decrease pain, To increase ROM, To improve muscle performance and motor function, To improve ability to perform ADL's, To increase tolerance to activity/condition/position, To improve ability of physical actions for home/community/work/leisure, To improve health of tissue, To decrease soft tissue restriction, To increase flexibility/ROM, To improve tolerance to ADL's TENS: Yes Other electric stimulation: Yes Cryotherapy (ice pack, ice massage): Yes Thermo therapy (hot pack): Yes Ultrasound (thermal/non thermal): Yes For the Purpose of:: To decrease pain, To increase ROM, To improve nutrient delivery to tissue, To increase oxygenation perfusion, To improve health of tissue, To decrease soft tissue restriction Thank you for the opportunity to evaluate your patient. For Medicare and Medicare HMO plans, please review the plan of care and approve it. It will need to be FAXED BACK to us at [phone] for Medicare purposes. For Medicare only, by signing this I certify the plan of care. Please let me know if there are questions or concerns regarding this plan of care. Physician Signature: Date:
--- NOTE | 2022-10-18 11:50 | HP.PTDCSUM ---
Discharge Summary D/C summary: It has been my pleasure to treat DEIDRA CALLEJAS referred by Dr. Kasey Lewis MD, with the diagnosis of BACK AND LEG PAIN for a total of 9 visit(s). Discharge Date: Please see the following information for a summary of their discharge status. Subjective Subjective: Doing about same plan sabi RTD Pain Bilateral Back: Pain Intensity (Out of 10): 4 Overall Improvement % Improvement: 10 Objective Objective/Function: POSTURE: WFL. GAIT: reciprocal pattern. NEURO: denies paresthesia/tingling ,reflexes L3-4,L4-5 ,L5-S1 1/3. SYMMTRIES: align. FLEXABLITY: hamstrings WFL. MMT: quads/hams 4/5 ,hip flexion/abduction 4/5 ,ankle 5/5. LUMBAR ROM: flexion mid min loss ,extension MIN loss ,side glides min loss Goals Goal 1:: I with HEP for back . Goal 2:: Patient to demonstrate 50% improvement with less pain and improved function Goal 3:: Patient to improve lumbar ROM for function of recovery to do housework chores and horses Goal 4:: Patient to improve back oswestry score by 5 points or > to improve QOL and function Plan Plan: RTD D/C Information d/c sentence: If there are questions or concerns regarding this patient's physical therapy, please feel free to call me at [phone]. Thank you for the referral of this patient. Sincerely, Michael Hurtado, PT, Cert MDT, OCS Balance/Gait/Functional tests Balance/Special Test Scores Oswestry Low Back Score: 19 Improvement % Improvement: 10
== END 2022-08-29 19:00 | disposition home or self-care (01) ==
LOC: PT 08:30
PROVIDERS: PCP Family Medicine; Visit Provider Family Medicine
DX: M54.9 Dorsalgia, unspecified (principal); M79.606 Pain in leg, unspecified
CPT/HCPCS: 97014; 97110; 97162; 97530; G0283

== ENCOUNTER 2022-09-04 12:29 | Day surgery (SDC) | payer OTHER, SELFPAY ==
[2022-09-04 13:03] VITALS: BP 133/70; PULSE 70; RESP 16; TEMP 36.3; O2SAT 98; BMI 39.8
[2022-09-04] MEDS: Lactated Ringers 1,000 ML 15 ML IV (13:08)
[2022-09-04 13:27] LABS: Bedside Glucose 156 mg/dL (74-106)
--- NOTE | 2022-09-04 13:45 | IMM_PTH ---
PATIENT: DEIDRA CALLEJSA LOC: EN U#:[id number] AGE/SX: 51/F ROOM: RE09/04/[address]: Dr. Twan Mccartney DO : 1970 BED: DIS: 09/04/2022 SPEC #: [id number] RECD: 09/05/22 13:51 STATUS: PAMELA REFrank #: [id number] JUAN: 09/04/22 13:[address]: Twan Mccartney DEPT: IMMUNOHISTOCHEMISTRY RECD BY: Desire Duval ENTERED: 09/05/22 13:51 SP TYPE: IMMUNO OTHR DR: Dr. Kasey Lewis MD Tissues: B - Stomach, NOS Procedures: H Pylori (initial) PHYSICIAN & INSTITUTION [place] [id number] SPECIMEN INFORMATION: Tissue Source: B - Antrum Clinical Info: Diarrhea, LUQ abdominal pain Specimen Number: [id number] CPT code: 69611 METHODOLOGY: Deparaffinized sections of prefer/formalin-fixed tissue or PAP/DQ stained slides are incubated with monoclonal/polyclonal antibodies/oligonucleotide probes. Localization is made via biotin free immunoperoxidase method. Appropriate controls are performed and reacted as expected. Results on target cell population are indicated in the following table: RESULTS: ANTIBODY / CLONE RESULT Block B H Pylori (polyclonal) negative These tests were developed and their performance characteristics determined by [facility]. They may not have been cleared or approved by the U.S. Food and Drug Administration. The FDA has determined that such clearance or approval is not necessary. The above immunohistochemical/dualISH markers are ordered and reviewed by the Pathologist. INTERPRETATION: B. Antrum, biopsy: Negative for Helicobacter pylori organisms. SJ:tammi 09/06/2022
--- NOTE | 2022-09-04 13:55 | HP.PCM_ITS ---
History and Physical Date of Admission: 09/04/22 Chief Complaint: diarrhea Details: DEIDRA CALLEJAS, is a 51 F who presents to the office today to establish with GI for urgent, watery postprandial diarrhea x 7 mos. Can occur even if she drinks water. Doesn't matter what food she eats. Gets trapped at home in the morning due to diarrhea. Takes up to 6 loperamide to stop the diarrhea. LUQ pain started before the diarrhea, at least a couple of times a week, can radiate through to the back. Pain across the lower abd can be very sharp, improves after BM, similar to her IBS but much more severe. On a few occasions she has had nocturnal diarrhea. Sometimes she avoids eating in order to prevent diarrhea. She gets nausea and dry heaves if she doesn't eat, so she takes phenergan for the nausea, takes it a few times a month. Has woken up in the night a few times to vomit, wonders if that's due to her gastroparesis. She has a hiatal hernia. No heartburn, acid reflux, dysphagia. Neg lactoferrin, neg O&P, neg enteric pathogens, neg C diff Retaining fluid, getting LE edema, gained 20 lbs in one week Cholecystectomy 20 yrs ago Colonoscopy 2020--large polyps, told to repeat in 3 yrs Has a reaction to steroids, gets back injections with Dr Saldana, face turns purple, needs benedryl for 2 wks then ROS Const Constitutional: Positive for fatigue, headache(s), weakness and weight change; No fever(s) or frequent falls ENT ENT: Positive for headache(s) and difficulty swallowing Cardio Cardiology: No leg pain with exertion Gastro GI: Positive for abdominal pain, bloating, change in bowel habits, diarrhea, heartburn, difficulty swallowing, excessive flatus, loose stools and nausea/dyspepsia; No constipation, Vomiting blood/hematemesis, Blood in stool or vomiting Musc Musculoskeletal: Positive for abnormal gait, joint pain, back pain, joint swelling, muscle weakness, numbness, stiffness, tingling, sciatica and leg pain at night; No muscle cramps, Arthritis or leg pain with exertion Skin Skin: No dry skin, lesions, itchy eyes or rash Neuro Neurology: Positive for abnormal gait, weakness, headache(s), numbness and tingling; No dizziness, frequent falls, tremor(s), Increased tone in limbs, paralysis or seizures Psych Psychiatric: No anxiety, Positive for depression, No paranoia, No Behavioral Problems, No Compulsive Behavior, No hyperactivity, No inattentiveness, No obsessions/compulsions, No Temper Tantrums and No suicidal ideation Endo Endocrine: Positive for fatigue and weight change Aller/Imm Allergy/Immunologic: No itchy eyes [place]/Lymp Hematologic/Lymphatic: No easy bleeding or easy bruising Exam Const General: cooperative and comfortable Nutritional Appearance: obese Orientation: alert, awake and oriented x3 Eyes Sclera: sclerae normal Resp Effort & Inspection: normal respiratory effort GI Inspection: obesity Palpation: soft, no hepatosplenomegaly, no masses and tender in the LUQ Neuro Other: right head/face tic Psych Mood: congruent mood Quality Reporting Tobacco Screening ([facility] 138) Smoking Status: Former smoker Assessment and Plan Assessment and Plan (1) Diarrhea: Status: Chronic Plan: 51 yr old female with chronic diarrhea and LUQ pain. DDx includes EPI, bile acid reflux/diarrhea, microscopic colitis, IBS, IBD Labs today Rx colestipol 1 g, take lunchtime (to avoid other meds) Will call her with results EGD and colonoscopy (2) LUQ abdominal pain: Status: Chronic Plan: as above Orders: Orders Pancreatic Elastase, Fecal Today R10.12 - Left upper quadrant pain, R19.7 - Diarrhea, unspecified Comprehensive Metabolic Profil Today R10.12 - Left upper quadrant pain, R19.7 - Diarrhea, unspecified CRP Today R10.12 - Left upper quadrant pain, R19.7 - Diarrhea, unspecified Lipase Today R10.12 - Left upper quadrant pain, R19.7 - Diarrhea, unspecified CBC W/Diff, Automated Today R10.12 - Left upper quadrant pain, R19.7 - Diarrhea, unspecified Erythrocyte Sed Rate Today R10.12 - Left upper quadrant pain, R19.7 - Diarrhea, unspecified MARTIN Comprehensive Panel Today R10.12 - Left upper quadrant pain, R19.7 - Diarrhea, unspecified Calprotectin, Stool Today R10.12 - Left upper quadrant pain, R19.7 - Diarrhea, unspecified ANCA Today R10.12 - Left upper quadrant pain, R19.7 - Diarrhea, unspecified Celiac Disease Profile Today R10.12 - Left upper quadrant pain, R19.7 - Diarrhea, unspecified Miscellaneous Lab Procedure Today R10.12 - Left upper quadrant pain, R19.7 - Diarrhea, unspecified Medications: New colestipol take at lunchtime 1 g PO DAILY 30 tabs 5RF
[2022-09-04 14:40] VITALS: BP 133/70; BP 97/68; PULSE 69; RESP 16; TEMP 36.2; O2SAT 100
--- NOTE | 2022-09-04 14:44 | OP.EGD_ITS ---
Patient Name: Janiya Keller Procedure Date: 09/04/2022 1:57 PM Date of : 1970 Age: 51 Procedure: Upper GI endoscopy Indications: Epigastric abdominal pain, Failure to respond to medical treatment Providers: Twan Mccartney DO Referring MD: Twan Mccartney DO Medicines: Monitored Anesthesia Care Patient Profile: This is a 51 year old female. Refer to note in patient chart for documentation of history and physical. Patient has symptoms of chronic right upper quadrant abdominal pain and chronic epigastric abdominal pain. Complications: No immediate complications. Procedure: Pre-Anesthesia Assessment: - Prior to the procedure, a History and Physical was performed, and patient medications and allergies were reviewed. The risks and benefits of the procedure and the sedation options and risks were discussed with the patient. All questions were answered and informed consent was obtained. Patient identification and proposed procedure were verified by the physician. Mental Status Examination: alert and oriented. CV Examination: normal. Prophylactic Antibiotics: The patient does not require prophylactic antibiotics. Prior Anticoagulants: The patient has taken no previous anticoagulant or antiplatelet agents. After reviewing the risks and benefits, the patient was deemed in satisfactory condition to undergo the procedure. The anesthesia plan was to use monitored anesthesia care (MAC). Immediately prior to administration of medications, the patient was re-assessed for adequacy to receive sedatives. The heart rate, respiratory rate, oxygen saturations, blood pressure, adequacy of pulmonary ventilation, and response to care were monitored throughout the procedure. The physical status of the patient was re-assessed after the procedure. After obtaining informed consent, the endoscope was passed under direct vision. Throughout the procedure, the patient's blood pressure, pulse, and oxygen saturations were monitored continuously. The pediatric colonoscope was introduced through the mouth, and advanced to the second part of duodenum. The upper GI endoscopy was accomplished without difficulty. The patient tolerated the procedure well. Scope In: 2:11:20 PM Scope Out: 2:15:17 PM Total Procedure Duration Time 0 hours 3 minutes 57 seconds Findings: The examined esophagus was normal. A small hiatal hernia was present. Diffuse moderate inflammation characterized by erosions and erythema was found in the gastric body. Biopsies were taken with a cold forceps for histology. Verification of patient identification for the specimen was done. Estimated blood loss was minimal. Diffuse moderately erythematous mucosa without active bleeding and with no stigmata of bleeding was found in the duodenal bulb, in the first portion of the duodenum and in the second portion of the duodenum. Impression: - Normal esophagus. - Small hiatal hernia. - Bile gastritis. Biopsied. - Erythematous duodenopathy. Recommendation: - Discharge patient to home. - Continue present medications. Procedure Code(s): --- Professional --- 19019, Esophagogastroduodenoscopy, flexible, transoral; with biopsy, single or multiple CPT copyright 2017 [employer]. All rights reserved. The codes documented in this report are preliminary and upon rn perinatal review may be revised to meet current compliance requirements. Twan Mccartney DO 09/04/2022 2:43:53 PM This report has been signed electronically. Number of Addenda: 0 Note Initiated On: 09/04/2022 1:57 PM
--- NOTE | 2022-09-04 14:44 | OP.CCLET_ITS ---
09/04/2022 Kasey Lewis [place] [address] [place] [address] Re : Upper GI endoscopy procedure for Janiya Keller Dear Dr. Lewis This procedure was performed on Sunday, September 04, 2022. My impressions and recommendations are as follows: Impressions : - Normal esophagus. - Small hiatal hernia. - Bile gastritis. Biopsied. - Erythematous duodenopathy. Recommendations : - Discharge patient to home. - Continue present medications. My findings are described in the full procedure note, which is enclosed. If I can be of further assistance, please feel free to contact me at . Sincerely, Twan Mccartney, 09/04/2022 2:43:53 PM This report has been signed electronically.
[2022-09-04 14:45] VITALS: BP 106/56; BP 133/70; PULSE 69; RESP 16; O2SAT 100
[2022-09-04 14:50] VITALS: BP 114/67; BP 133/70; PULSE 68; RESP 16; O2SAT 100
--- NOTE | 2022-09-04 14:51 | OP.COLON_ITS ---
Patient Name: Janiya Keller Procedure Date: 09/04/2022 2:15 PM Date of : 1970 Age: 51 Procedure: Colonoscopy Indications: Family history of colon cancer Providers: Twan Mccartney DO Referring MD: Twan Mccartney DO Medicines: Monitored Anesthesia Care Patient Profile: This is a 51 year old female. Refer to note in patient chart for documentation of history and physical. Patient has symptoms of chronic right upper quadrant abdominal pain and chronic epigastric abdominal pain. Last Colonoscopy: 5 years ago. Complications: No immediate complications. Procedure: Pre-Anesthesia Assessment: - Prior to the procedure, a History and Physical was performed, and patient medications and allergies were reviewed. The risks and benefits of the procedure and the sedation options and risks were discussed with the patient. All questions were answered and informed consent was obtained. Patient identification and proposed procedure were verified by the physician. Mental Status Examination: alert and oriented. CV Examination: normal. Prophylactic Antibiotics: The patient does not require prophylactic antibiotics. Prior Anticoagulants: The patient has taken no previous anticoagulant or antiplatelet agents. After reviewing the risks and benefits, the patient was deemed in satisfactory condition to undergo the procedure. The anesthesia plan was to use monitored anesthesia care (MAC). Immediately prior to administration of medications, the patient was re-assessed for adequacy to receive sedatives. The heart rate, respiratory rate, oxygen saturations, blood pressure, adequacy of pulmonary ventilation, and response to care were monitored throughout the procedure. The physical status of the patient was re-assessed after the procedure. After I obtained informed consent, the scope was passed under direct vision. Throughout the procedure, the patient's blood pressure, pulse, and oxygen saturations were monitored continuously. The pediatric colonoscope was introduced through the anus and advanced to the cecum, identified by appendiceal orifice and ileocecal valve. The colonoscopy was performed without difficulty. The patient tolerated the procedure well. The quality of the bowel preparation was fair. Moderate Sedation: Moderate (conscious) sedation was administered by the endoscopy nurse and supervised by the endoscopist. The following parameters were monitored: oxygen saturation, heart rate, blood pressure, and response to care. Total physician intraservice time was 15 minutes. Scope In: 2:17:33 PM Scope Withdrawal Time 0 hours 12 minutes 17 seconds Scope Out: 2:33:59 PM Total Procedure Duration Time 0 hours 16 minutes 26 seconds Findings: The perianal and digital rectal examinations were normal. A 5 mm polyp was found in the cecum. The polyp was sessile. The polyp was removed with a cold snare. Resection and retrieval were complete. Verification of patient identification for the specimen was done. Estimated blood loss was minimal. An area of mildly congested mucosa was found in the recto-sigmoid colon, in the sigmoid colon, in the descending colon, at the hepatic flexure and in the ascending colon. Biopsies were taken with a cold forceps for histology. Verification of patient identification for the specimen was done. Estimated blood loss was minimal. A localized area of the terminal ileum was congested. Impression: - Preparation of the colon was fair. - One 5 mm polyp in the cecum, removed with a cold snare. Resected and retrieved. - Congested mucosa in the recto-sigmoid colon, in the sigmoid colon, in the descending colon, at the hepatic flexure and in the ascending colon. Biopsied. - Congested mucosa in the terminal ileum. Recommendation: - Discharge patient to home. - Resume previous diet. - Continue present medications. - Await pathology results. - Repeat colonoscopy in 5 years for surveillance. Procedure Code(s): --- Professional --- 51183, Colonoscopy, flexible; with removal of tumor(s), polyp(s), or other lesion(s) by snare technique 20933, 59, Colonoscopy, flexible; with biopsy, single or multiple 17205, 59, Moderate sedation services provided by the same physician or other qualified health resident care provider performing the diagnostic or therapeutic service that the sedation supports, requiring the presence of an independent trained observer to assist in the monitoring of the patient's level of consciousness and physiological status; initial 15 minutes of intraservice time, patient age 5 years or older CPT copyright 2017 [employer]. All rights reserved. The codes documented in this report are preliminary and upon longitudinal float operator review may be revised to meet current compliance requirements. Twan Mccartney DO 09/04/2022 2:50:50 PM This report has been signed electronically. Number of Addenda: 0 Note Initiated On: 09/04/2022 2:15 PM
--- NOTE | 2022-09-04 14:52 | OP.CCLET_ITS ---
09/04/2022 Kasey Lewis [place] [address] [place] [address] Re : Colonoscopy procedure for Janiya Keller Dear Dr. Lewis This procedure was performed on Sunday, September 04, 2022. My impressions and recommendations are as follows: Impressions : - Preparation of the colon was fair. - One 5 mm polyp in the cecum, removed with a cold snare. Resected and retrieved. - Congested mucosa in the recto-sigmoid colon, in the sigmoid colon, in the descending colon, at the hepatic flexure and in the ascending colon. Biopsied. - Congested mucosa in the terminal ileum. Recommendations : - Discharge patient to home. - Resume previous diet. - Continue present medications. - Await pathology results. - Repeat colonoscopy in 5 years for surveillance. My findings are described in the full procedure note, which is enclosed. If I can be of further assistance, please feel free to contact me at . Sincerely, Twan Mccartney, 09/04/2022 2:50:50 PM This report has been signed electronically.
[2022-09-04 14:55] VITALS: BP 103/47; BP 133/70; PULSE 68; RESP 16; TEMP 36.3; O2SAT 100
[2022-09-04 15:08] VITALS: BP 133/70
--- NOTE | 2022-09-05 | GASB_PTH ---
PATIENT: DEIDRA CALLEJAS LOC: EN U#:[id number] AGE/SX: 51/F ROOM: RE09/04/[address]: Dr. Twan Mccartney DO : 1970 BED: DIS: 09/04/2022 SPEC #: [id number] RECD: 09/05/22 11:51 STATUS: PAMELA OVERTONFrank #: [id number] JUAN: 09/05/22 00:[address]: Twan Mccartney DEPT: SURGICAL PATHOLOGY RECD BY: Víctor Le ENTERED: 09/05/22 11:51 SP TYPE: Gastric Bx OTHR DR: Dr. Kasey Lewis MD Tissues: A - Duodenum, NOS B - Gastric mucous membrane C - Cecum, NOS D - Ileum, NOS E - COLON BIOPSY Procedures: Surgery Specimen Level IV HEADER OPERATION: Colonoscopy, EGD ([facility] [place] biopsy PRE-OP DIAGNOSIS: Diarrhea, LUQ abdominal pain TISSUE SUBMITTED: A - Duodenum biopsy, B - Antrum biopsy for histo and H. pylori, C - Cecal polyps (x2) biopsy, D - Terminal ileum biopsy, E - Random colonic biopsy MICROSCOPIC DIAGNOSIS A. Duodenal mucosa, biopsy: Fragments of duodenal mucosa, no pathologic diagnosis. B. Antrum, biopsy: Mild gastritis. See microscopic description and comment. C. Cecal polyps (x2), biopsy: Hyperplastic polyp. See comment. D. Terminal ileum, biopsy: Fragments of small intestinal mucosa, no pathologic diagnosis. E. Colon, random biopsy: Fragments of colonic mucosa, no pathologic diagnosis. SJ:tammi 09/06/2022 COMMENT B. The results of immunohistochemistry for Helicobacter pylori will be reported separately ([id number]). C. An additional fragment of colonic mucosa with focal minimal hyperplastic changes is also noted. MICROSCOPIC DESCRIPTION Slides are reviewed. B. The specimen shows fragments of gastric mucosa with chronic inflammatory cell infiltrates in the lamina propria consisting of lymphocytes and plasma cells, consistent with mild chronic gastritis. GROSS DESCRIPTION A - Received in fixative is one container labeled with the patient's name and designated duodenum biopsy. The specimen consists of multiple irregular fragments of light marie soft tissue that in aggregate measure 2.0 x 0.3 x 0.1 cm. The specimen is totally submitted in one cassette. B - Received in fixative is one container labeled with the patient's name and designated antrum biopsy. The specimen consists of two irregular fragments of light marie soft tissue that in aggregate measure 0.6 x 0.4 x 0.1 cm. The specimen is totally submitted in one cassette. C - Received in fixative is one container labeled with the patient's name and designated cecum polyps x2. The specimen consists of two irregular fragments of light marie soft tissue that in aggregate measure 1.0 x 0.5 x 0.1 cm. The specimen is totally submitted in one cassette. D - Received in fixative is one container labeled with the patient's name and designated terminal ileum. The specimen consists of multiple irregular fragments of light marie soft tissue that in aggregate measure 1.0 x 0.3 x 0.1 cm. The specimen is totally submitted in one cassette. E - Received in fixative is one container labeled with the patient's name and designated random colonic biopsy. The specimen consists of multiple irregular fragments of light marie soft tissue that in aggregate measure 2.5 x 0.8 x 0.1 cm. The specimen is totally submitted in one cassette. / SJ:rg 09/05/2022 TC:3 CPT: 37819 x5
== END 2022-09-04 15:46 | disposition home or self-care (01) ==
LOC: EN 12:30 → AC 12:32
PROVIDERS: PCP Family Medicine; Referring Provider Family Medicine; Visit Provider Internal Medicine Gastroenterology
PROC: 0DJD8ZZ Inspection of Lower Intestinal Tract, Via Natural or Artificial Opening Endoscopic (ICD-10-PCS; CPT 45378; principal; 2022-09-04 13:40)
DX: K63.89 Other specified diseases of intestine (principal); I48.0 Paroxysmal atrial fibrillation; Z68.41 Body mass index [BMI] 40.0-44.9, adult; Z79.4 Long term (current) use of insulin; E11.9 Type 2 diabetes mellitus without complications; K44.9 Diaphragmatic hernia without obstruction or gangrene; K63.5 Polyp of colon; K29.70 Gastritis, unspecified, without bleeding; E66.9 Obesity, unspecified; I10 Essential (primary) hypertension; F41.9 Anxiety disorder, unspecified; E78.00 Pure hypercholesterolemia, unspecified; Z79.84 Long term (current) use of oral hypoglycemic drugs; Z79.899 Other long term (current) drug therapy; Z86.010 Personal history of colon polyps; Z87.891 Personal history of nicotine dependence; Z86.16 Personal history of COVID-19; Z80.0 Family history of malignant neoplasm of digestive organs
CPT/HCPCS: 45385; 45380; 43239; 82962; 88305; 88342; J7120; J2405

== ENCOUNTER → 2022-09-04 | Outpatient (CLI) | payer OTHER, SELFPAY ==
[2022-09-06 15:08] LABS: Albumin 3.4 g/dL (2.9-4.4); Alpha-1-Globulins 0.2 g/dL (0.0-0.4); Alpha-2-Globulins 0.8 g/dL (0.4-1.0); Gamma Globulin 0.9 g/dL (0.4-1.8); Immunoglobulin A 350 mg/dL (87-352); Immunoglobulin G 976 mg/dL (586-1602); Immunoglobulin M 44 mg/dL (26-217); PROEL- TOTAL PROTEIN 6.4 g/dL (6.0-8.5)
[2022-09-10 01:06] LABS: Beef <0.10 kU/L (Class 0); Chocolate <0.10 kU/L (Class 0); Clam <0.10 kU/L (Class 0); Codfish <0.10 kU/L (Class 0); Corn 0.13 kU/L (Class 0/I); Egg, White 0.75 kU/L (Class II); Egg, Whole 0.37 kU/L (Class I); Milk (Cow) <0.10 kU/L (Class 0); Peanut 0.14 kU/L (Class 0/I); Pork <0.10 kU/L (Class 0); SCALLOP <0.10 kU/L (Class 0); SESAME SEED 0.13 kU/L (Class 0/I); Shrimp <0.10 kU/L (Class 0); Soybean <0.10 kU/L (Class 0); Walnut, (Food) <0.10 kU/L (Class 0); Wheat 0.17 kU/L (Class 0/I)
== END | disposition home or self-care (01) ==
LOC: LAB 15:48
PROVIDERS: PCP Family Medicine; Referring Provider Internal Medicine Gastroenterology; Visit Provider Internal Medicine Gastroenterology
DX: R10.12 Left upper quadrant pain (principal)
CPT/HCPCS: 36415; 82784; 84165; 86003; 86005; 86334

== ENCOUNTER 2022-09-06 08:34 | Day surgery (SDC) | payer OTHER, SELFPAY ==
[2022-09-06] VITALS (8 sets, daily range): BP systolic 112–123; BP diastolic 64–80; PULSE 63–73; RESP 16–18; TEMP 36.6–37.4; O2SAT 94–100; BMI 39.7
--- NOTE | 2022-09-06 | LIP_PTH ---
PATIENT: DEIDRA CALLEJAS [place] [facility] [place] U#:[id number] AGE/SX: 51/F ROOM: RE09/06/[address]: Dr. Erika Randall MD : 1970 BED: DIS: 09/06/2022 SPEC #: [id number] RECD: 09/06/22 09:49 STATUS: PAMELA REFrank #: [id number] JUAN: 09/06/22 00:[address]: Erika Randall DEPT: SURGICAL PATHOLOGY RECD BY: Víctor Le ENTERED: 09/07/22 09:50 SP TYPE: LIPOMA OTHR DR: Dr. Kasey Lewis MD Tissues: A - Soft tissues, NOS B - Soft tissues, NOS C - Soft tissues, NOS D - Soft tissues, NOS E - Soft tissues, NOS Procedures: Surgery Specimen Level III HEADER OPERATION: Excision lipoma x5, multiple sites, back, right chest PRE-OP DIAGNOSIS: Multiple lipomas TISSUE SUBMITTED: A - Right inferior breast, B - Right axilla, C - Left superior medial thigh, D - Left superior back, E - Right mid back MICROSCOPIC DIAGNOSIS A. Right inferior breast lipoma, excision: Mature adipose tissue, consistent with lipoma. B. right axilla lipoma, excision: Mature adipose tissue, consistent with lipoma. C. Left superior medial thigh lipoma, excision: Mature adipose tissue, consistent with lipoma. D. Left superior back lipoma, excision: Mature adipose tissue, consistent with lipoma. E. Right mid back lipoma, excision: Mature adipose tissue, consistent with lipoma. SJ:tammi 09/10/2022 MICROSCOPIC DESCRIPTION Slides are reviewed. GROSS DESCRIPTION A - Received in fixative is one container labeled with the patient's name and designated right inferior breast. The specimen consists of multiple pieces of lobulated adipose tissue measuring in aggregate 6.5 x 5.0 x 2.0 cm. Sections reveal yellow adipose cut surfaces without area of hemorrhage, necrosis or cystic degeneration. Head Gauge Unit Operator sections are submitted in four cassettes. B - Received in fixative is one container labeled with the patient's name and designated right axilla. The specimen consists of an ovoid piece of adipose tissue measuring 6.0 x 4.0 x 2.0 cm. The external surface is inked. Sections reveal yellow adipose cut surfaces without areas of hemorrhage, necrosis or cystic degeneration. Head Gauge Unit Operator sections are submitted in four cassettes. C - Received in fixative is one container labeled with the patient's name and designated left superior medial thigh. The specimen consists of an ovoid piece of adipose tissue measuring 5.5 x 2.5 x 1.5 cm. The external surface is inked. Sections reveal yellow adipose cut surfaces without areas of hemorrhage, necrosis or cystic degeneration. Head Gauge Unit Operator sections are submitted in four cassettes. D - Received in fixative is one container labeled with the patient's name and designated left superior back. The specimen consists of an ovoid piece of adipose tissue measuring 6.0 x 4.5 x 2.0 cm. It is focally disrupted. The external surface is inked. Sections reveal yellow adipose cut surfaces without areas of hemorrhage, necrosis or cystic degeneration. Head Gauge Unit Operator sections are submitted in four cassettes. E - Received in fixative is one container labeled with the patient's name and designated right mid back. The specimen consists of an ovoid piece of adipose tissue measuring 8.0 x 8.0 x 2.0 cm. The external surface is inked. Sections reveal yellow adipose cut surfaces without areas of hemorrhage, necrosis or cystic degeneration. Head Gauge Unit Operator sections are submitted in four cassettes. / SJ:tammi 09/07/2022 TC:1 CPT: 89299 x5
--- NOTE | 2022-09-06 09:15 | PCM.HP.BLA ---
History and Physical Date of Admission: 09/06/22 Date of Service: 08/24/22 MR#: [id number] Acct: [id number] Name: DEIDRA CALLEJAS Rep #: [id number] : 1970 Provider: Dr. Erika Randall MD Age/Sex: 51/F Location: [facility] Status: Signed Intake Vital Signs 06/21/2313:45 08/24/2308:17 Height 5 ft 10 in 5 ft 10 in Weight: 280 lb 280 lb BMI 40.1 40.1 BP 112/72 Blood Pressure Location Rt brachial Position Sitting Respiration 17 Pulse 72 Pulse Source Monitor Temp 97 F L Temp Source Temporal Pulse Oximetry (%) 97 Oxygen Delivery Method room air Intake Visit Reasons: 5 LARGE LIPOMAS Chief Complaint: lipomas Is patient in pain?: No Allergies venom-honey bee [bee venom (honey bee)] Allergy (Severe, Verified 08/24/22 09:18) AnaphylaxisInfluenza Virus Vaccines Allergy (Verified 08/24/22 09:18) HIVES AT INJECTION SITEcanagliflozin [From Invokana] Adverse Reaction (Verified 08/24/22 09:18) Nausea/Vom/Diarrhealevofloxacin [From Levaquin] Adverse Reaction (Verified 08/24/22 09:18) Nausea/Vom/Diarrheaneomycin [From Neosporin ([id number])] Adverse Reaction (Verified 08/24/22 09:18) Otherneomycin sulfate [From Triple Antibiotic] Adverse Reaction (Verified 08/24/22 09:18) blisters and itchingpolymyxin B [From Triple Antibiotic] Adverse Reaction (Verified 08/24/22 09:18) blisters and itchingpolymyxin B sulfate [From Triple Antibiotic] Adverse Reaction (Verified 08/24/22 09:18) blisters and itchingsimvastatin Adverse Reaction (Verified 08/24/22 09:18) Nausea/Vom/Diarrhea Medications aspirin 81 mg tablet,delayed release 81 mg PO DAILY 02/23/15 [History Confirmed 08/24/22] cholecalciferol (vitamin D3) 250 mcg (10,000 unit) capsule 10,000 unit PO QHS PRN other 01/29/17 [History Confirmed 08/24/22] lovastatin 40 mg tablet 40 mg PO QHS 01/29/17 [History Confirmed 08/24/22] trazodone 50 mg tablet 50 mg PO QHS PRN Insomnia 02/22/17 [History Confirmed 08/24/22] multivitamin 1 ea PO QHS 04/02/17 [History Confirmed 08/24/22] metformin 1,000 mg tablet 1,000 mg PO BID 07/09/19 [History Confirmed 08/24/22] Saxaenda 3 mg SQ DAILY 05/30/20 [History Confirmed 08/24/22] duloxetine 20 mg capsule,delayed release 20 mg PO DAILY migraines/anxiety 05/30/20 [History Confirmed 08/24/22] insulin aspart U-100 100 unit/mL (3 mL) subcutaneous pen 5 - 15 units subcut TIDCM 05/30/20 [History Confirmed 08/24/22] tetrabenazine 12.5 mg tablet 12.5 mg PO BID 07/11/20 [History Confirmed 08/24/22] metoprolol succinate 25 mg tablet,extended release 24 hr 25 mg PO QHS arrhythmia #90 tabs 07/18/20 [Rx Confirmed 08/24/22] albuterol sulfate 90 mcg/actuation aerosol inhaler 1 inh inhalation ONCE 04/03/22 [History Confirmed 08/24/22] buspirone 15 mg tablet 15 mg PO TID 04/03/22 [History Confirmed 08/24/22] estradiol 0.0375 mg/24 hr semiweekly transdermal patch 1 patch transdermal 2XW 04/03/22 [History Confirmed 08/24/22] gabapentin 100 mg capsule 100 mg PO TID 04/03/22 [History Confirmed 08/24/22] hyoscyamine sulfate 0.125 mg disintegrating tablet 0.125 mg PO BID-QID PRN 04/03/22 [History Confirmed 08/24/22] insulin glargine 100 unit/mL (3 mL) subcutaneous pen (Basaglar KwikPen U-100 Insulin) 50 unit subcut QAM 04/03/22 [History Confirmed 08/24/22] nadolol 20 mg tablet 10 mg PO ONCE 04/03/22 [History Confirmed 08/24/22] potassium chloride 20 mEq tablet,extended release 20 meq PO DAILY 04/03/22 [History Confirmed 08/24/22] progesterone micronized 200 mg capsule 200 mg PO QHS 04/03/22 [History Confirmed 08/24/22] promethazine 25 mg tablet 25 mg PO TID PRN 04/03/22 [History Confirmed 08/24/22] rizatriptan 10 mg tablet See Rx Instructions PO .COMPLEX 04/03/22 [History Confirmed 08/24/22] colestipol 1 gram tablet 1 g PO DAILY #30 tabs 06/21/22 [Rx Confirmed 08/24/22] deutetrabenazine 12 mg tablet (Austedo) 12 mg PO DAILY 08/24/22 [History Confirmed 08/24/22] PFSH Medical History (Updated 08/24/22 @ 09:16 by Krystal Mei) Anxiety Aphasia Asthma Diabetes Diabetic polyneuropathy Diarrhea Essential (primary) hypertension Fecal urgency Gastroparesis GERD (gastroesophageal reflux disease) Hyperlipidemia Lumbar spinal stenosis Migraine Non-sustained ventricular tachycardia (06/03/18) Obesity Paroxysmal atrial fibrillation Paroxysmal atrial flutter Premature ventricular contractions Speech disturbance Syncope (06/03/18) Type I diabetes mellitus Surgical History H/O shoulder surgery H/O: hysterectomy History of ankle surgery History of carpal tunnel release History of hip surgery History of knee surgery History of radiofrequency ablation procedure for cardiac arrhythmia (07/2006) History of renal stent Hx of cholecystectomy Family History (Updated 08/24/22 @ 09:17 by Krystal Mei) Son Protein S deficiency patient is negative Sister Heart disease Social History Smoking Status: Former smoker alcohol intake: never HPI HPI HPI: 51-year-old female presents due to multiple enlarging lipomas causing discomfort. Patient previously had excision about 5 lipomas in May 2020 by myself. Patient states these areas have gotten larger and are bothersome with sitting, horseback riding, wearing her bra. They are located to on her back to on her right chest area and 1 left superior medial thigh. Patient states her current A1c is 6.9 and her blood sugars have continued to be controlled. ROS General General: Yes weight change and fatigue; No appetite, colon cancer or breast cancer HEENT HEENT: No difficulty swallowing, eye injury, eye surgery, swollen glands or hoarseness Endo Endocrine: Yes diabetes mellitus; No thyroid disease, thyroid cancer, Hair loss, heat intolerance or cold intolerance Skin Skin: No rash or changing moles Musc Musculoskeletal: Yes back problems and arthritis; No rheumatoid arthritis, gout or joint pain Cardio Cardiovascular: Yes atrial fibrillation and palpitations; No murmur, pacemaker, heart disease, high blood pressure, heart attack, heart stent, shortness of breat with exertion or chest pain Additional Details: occasional a fib. has PVCs at times. Psych Psychiatric: Yes depression and anxiety; No hearing voices Resp Respiratory: No shortness of breath, No sleep apnea, No cough, No COPD, Yes asthma, No emphysema and No wheezing Gastro Gastrointestinal: Yes abdominal pain, Yes nausea or vomiting, Yes diarrhea, No constipation, No blood in stool, Yes acid reflux, Yes hemorrhoids, No ulcers, No gallbladder problem and No black,tarry stools [place] Hematologic: No blood thinners, No blood disorders, No bleeding, No anemia and No blood clots Neuro Neurologic: Yes numbness and Yes tingling Exam Const General: cooperative, healthy appearing, comfortable and no acute distress HENMT Head: normocephalic and atraumatic Neck Neck: supple Resp Effort & Inspection: normal respiratory effort Cardio Rate: regular rate GI Inspection: non-distended Palpation: soft, no hernias and nontender Skin Other: Multiple lipomas as below: 1-Left superior posterior back 7 cm x 7 cm 2-Right mid back 11 x 12 cm 3-Right inferior mammary fold 7 x 5 cm 4-Right anterior inferior axilla/lateral chest 7 x 4 cm 5-Left superior medial thigh 7 x 4 cm Neuro General: CN's II-XI intact bilaterally Extrem General: normal to inspection Psych Mental Status: mental status grossly normal Attitude: cooperative Assessment and Plan Assessment and Plan (1) Multiple lipomas: Status: Acute Plan Plan for excision of multiple lipomas in the OR. Risk include but not limited to bleeding, wound infection, recurrent lipomas. Patient has no further questions this time. We will plan for MAC anesthesia and I will have her require position change during the case to excise all lipomatous?starting supine and going to right lateral decubitus.. Erika Randall M.D. Pager: [phone] [facility] [address] [place] [address], [facility], [address] [place] [address] Office: [phone] Coding Level of Care Code Off vis,est,level 3 Diagnoses Multiple lipomas D17.9 08/24/22 1044 <Electronically signed by Erika Randall MD> Date Erika Randall MD
[2022-09-06] MEDS: Lactated Ringers 1,000 ML 15 ML IV (09:19)
[2022-09-06 10:09] LABS: Bedside Glucose 225 mg/dL (74-106)
--- NOTE | 2022-09-06 10:54 | PCM.OPRPT ---
Report of Operation Date of Procedure: 09/06/22 Pre-Operative Diagnosis: Multiple lipomas?right axilla, right inferior mammary fold, left thigh, left upper back, right mid back Post-Operative Diagnosis: Same Surgery/Procedure Performed:: Excision of multiple subcutaneous lipomas Surgeon: Erika Randall mill work: [place] Type of Anesthesia: General/Supplemental Anesthesiologist: Erika Randall Special Medications: Ancef 3 g IV x1 Specimen's removed: 1. Right inferior mammary fold lipoma, 2. Right axillary lipoma, 3. Left superior medial thigh lipoma, 4 left superior back lipoma, 5 right mid back lipoma Estimated Blood Loss (mL): 15 cc Description of Procedure: Patient was brought to operative room. Patient placed supine operating table. Timeout was completed verifying correct patient, procedure, site, special equipment prior to beginning procedure. General anesthesia was induced. Patient's right axilla/right breast and left superior medial thigh were prepped draped in usual sterile fashion with chlorhexidine. Incision was made with 15 blade scalpel overlying these lipomas which was deepened with electrocautery. Lipomas were excised. Right inferior breast lipoma 6 x 6 x 3 cyst centimeters, right axillary lipoma 6 x 5 x 2 cm, left superior medial thigh lipoma 6.5 by 2.5 x 2 cm. These were sent to pathology. Incisions were closed with subdermal interrupted 3-0 Vicryl's and skin was closed with 4-0 Monocryl. Dermabond was also placed on the skin. Patient was repositioned to right lateral decubitus position with appropriate padding. The back was prepped and draped in usual sterile fashion with chlorhexidine. Incision was made over the lipomas with a 15 blade scalpel. This was deepened with electrocautery. Lipomas were excised x2. Left superior back 6.5 x 4.5 x 2 cm right mid back 9 cm x 8 cm x 2.5 cm. These were sent to pathology. Hemostasis was achieved with electrocautery. Incisions were closed with subdermal interrupted 3-0 Vicryl and skin was closed with interrupted 4-0 Monocryl's. Steri-Strips and 4 x 4's and tape were placed over incisions. Patient was extubated. Patient tolerated procedure well was taken to the postanesthesia care unit in stable condition. Complications none
--- NOTE | 2022-09-06 11:00 | EX.PCM.DISCH ---
Discharge Instructions Diet Discharge Diet: No restrictions Activity Discharge Activity: May Not Drive (while taking narcotic pain meds.) May shower in (days): 1 Lifting Restrictions: none Additional Activity Instructions:: avoid strenuous exercise x 1 week Dressing / Incision Call your doctor if your incision/area has: Continuous Slow Oozing, Sudden Increased Bleeding, Increased Pain/ Swelling and Increased Redness Call your doctor if you observe: Fever of 101 or Higher Suture Line Care: Avoid Pulling/Pushing Remove Dressing in: 1 day (back dressings-gauze and tape okay to replace if having some drainage.) Additional Dressing/Incision Instructions:: Dermabond (glue) was used at the right breast/right axillary/left thigh incision this may start to peel off in about 5 days. Okay to remove Steri-Strips from back incisions in 7 to 10 days. Follow Up Care Please Follow Up With: Erika Randall MD When: Please call [phone] for an appointment to be seen in 2 week. Test Results: Test results from this visit will be discussed in further detail at your follow-up appointment, if applicable. Discharge Plan Admission Attending Provider: Erika Randall Primary Care Provider: Kasey Lewis Discharge Orders/Prescriptions Prescriptions: New oxycodone-acetaminophen 5-325 mg tablet 1 - 2 tab PO Q6H PRN (Reason: pain) 3 Days Qty: 10 0RF Continued lovastatin 40 mg tablet 40 mg PO QHS cholecalciferol (vitamin D3) 10,000 unit capsule 10,000 unit PO QHS PRN (Reason: other) Patient Comments: states takes during seasons when she is not outside as much metformin 1,000 mg tablet 1,000 mg PO BID albuterol sulfate 90 mcg/actuation HFA aerosol inhaler 1 inh inhalation ONCE PRN (Reason: SOB) insulin glargine [Basaglar KwikPen U-100 Insulin] 100 unit/mL (3 mL) insulin pen 50 unit subcut QAM buspirone 15 mg tablet 15 mg PO TID estradiol 0.0375 mg/24 hr patch semiweekly 1 patch transdermal 2XW Rx Instructions: apply 1 patch for 3 days alternating with 1 patch for 4 days each week for 3 wks per 4-wk cycle gabapentin 100 mg capsule 100 - 300 mg PO QHS nadolol 20 mg tablet 10 mg PO ONCE progesterone micronized 200 mg capsule 200 mg PO QHS promethazine 25 mg tablet 25 mg PO TID PRN (Reason: nausea) rizatriptan 10 mg tablet See Rx Instructions PO .COMPLEX Rx Instructions: take 1 tab at onset of headache; if no relief may repeat 1 tab after at least 2 hrs; max = 3 tabs/24 hr PO [place] 12 mg tablet 24 mg PO DAILY trazodone 50 MG tablet 50 mg PO QHS PRN (Reason: Insomnia) multivitamin 1 EACH tablet 1 ea PO QHS insulin aspart U-100 100 UNITS/ML insulin pen 5 - 15 units SC TIDCM duloxetine 20 MG capsule 20 mg PO DAILY Held aspirin 81 MG tablet,delayed release (DR/EC) 81 mg PO DAILY Hold Instructions: Resume on 09/09/22. Patient Comments: states she will stop med on her own Referrals / Follow Up: Kasey Lewis MD [Primary Care Provider] - Disposition Disposition (needs filled in before D/C Order can be placed): Home, Self Care
[2022-09-06] MEDS: Lidocaine 1% /Epi 1:100 (20ml) 20 ML Vial (11:32)
[2022-09-06 12:59] LABS: Bedside Glucose 220 mg/dL (74-106)
[2022-09-06] MEDS: Oxycodone/Apap 5/325 Tablet PO (13:35)
== END 2022-09-06 14:07 | disposition home or self-care (01) ==
LOC: SDC 08:34 → AC 08:35
PROVIDERS: PCP Family Medicine; Referring Provider Surgery; Visit Provider Surgery
PROC: (CPT 23071; principal; 2022-09-06 09:50)
DX: D17.79 Benign lipomatous neoplasm of other sites (principal); E10.43 Type 1 diabetes mellitus with diabetic autonomic (poly)neuropathy; E10.42 Type 1 diabetes mellitus with diabetic polyneuropathy; I48.0 Paroxysmal atrial fibrillation; Z68.41 Body mass index [BMI] 40.0-44.9, adult; Z79.4 Long term (current) use of insulin; D17.1 Benign lipomatous neoplasm of skin and subcutaneous tissue of trunk; D17.24 Benign lipomatous neoplasm of skin and subcutaneous tissue of left leg; E66.9 Obesity, unspecified; I10 Essential (primary) hypertension; E78.00 Pure hypercholesterolemia, unspecified; F41.9 Anxiety disorder, unspecified; Z79.82 Long term (current) use of aspirin; Z79.84 Long term (current) use of oral hypoglycemic drugs; Z87.891 Personal history of nicotine dependence; Z86.16 Personal history of COVID-19
CPT/HCPCS: 23071; 21552; 21931; 27337; 00300; 82962; 88304; J7120; J2405

== ENCOUNTER → 2022-09-25 | Outpatient (CLI) | payer OTHER, SELFPAY ==
[2022-09-28 15:09] LABS: Calprotectin, Stool 24 ug/g (0-120)
[2022-09-28 20:08] LABS: Pancreatic Elastase, Fecal > 500 (>200)
== END | disposition home or self-care (01) ==
LOC: LABSPEC 11:11
PROVIDERS: Nurse Practitioner Adult Health; PCP Family Medicine; Referring Provider Internal Medicine Gastroenterology; Visit Provider Internal Medicine Gastroenterology
DX: R10.12 Left upper quadrant pain (principal); R19.7 Diarrhea, unspecified
CPT/HCPCS: 82653; 83993

== ENCOUNTER → 2022-11-05 | Outpatient (CLI) | payer OTHER, SELFPAY ==
[2022-11-05 16:56] LABS: Rheumatoid Factor < 10.0 IU/mL (<15)
[2022-11-07 13:08] LABS: Anti-dsDNA Ab <1 IU/mL (0-9)
[2022-11-07 15:08] LABS: CCP IgG Antibodies 1 units (0-19); Complement C3 171 mg/dL (82-167); Complement CH50 58 U/mL (>41)
== END | disposition home or self-care (01) ==
PROVIDERS: PCP Family Medicine; Referring Provider Internal Medicine Gastroenterology; Visit Provider Internal Medicine Gastroenterology
DX: R19.7 Diarrhea, unspecified (principal)
CPT/HCPCS: 36415; 86160; 86162; 86200; 86225; 86431

== ENCOUNTER → 2022-11-22 | Outpatient (CLI) | payer OTHER, SELFPAY ==
--- NOTE | 2022-11-22 11:30 | NM_ITS ---
CLINICAL: 52-year-old female with history of clinical gastroparesis. SEMI-SOLID PHASE 99m Tc SULFUR COLLOID GASTRIC EMPTYING STUDY COMPARISON: None available FINDINGS: The patient was administered 1.0 mCi of 99m Tc sulfur colloid mixed with oatmeal and consumed per os. Image acquisitions in the anterior-posterior projections were obtained for 60 minutes. There is prompt visualization of the stomach. There is no gastroesophageal reflux identified. The T ? raw data emptying was calculated to be 42.79 minutes, (Normal: 12-56 minutes). NM/Gastric Emptying Study IMPRESSION: 1. NORMAL 99m Tc sulfur colloid semi-solid phase (oatmeal) gastric emptying imaging examination. A. There is normal and preserved semi-solid phase gastric emptying compared to normal controls. (Pao et al, J Nucl Med Tech 38: 186, 2010). Electronically Signed: Adria Ribera DO at 22:51 EDT ,
== END | disposition home or self-care (01) ==
LOC: NM 11:29
PROVIDERS: PCP Family Medicine; Referring Provider Internal Medicine Gastroenterology; Visit Provider Internal Medicine Gastroenterology
DX: R19.7 Diarrhea, unspecified (principal)
CPT/HCPCS: 78264; A9541

== ENCOUNTER → 2022-12-10 | Outpatient (CLI) | payer OTHER, SELFPAY ==
--- NOTE | 2022-12-10 14:00 | MRI_ITS ---
INDICATION: PAIN, RADIATING DOWN LEGS EXAMINATION: MRI - MR Spine Lumbar W/O Contrast TECHNIQUE: Multiplanar and multisequence MR images of the lumbar spine. IV Contrast Dosage and Agent: MRI lumbar spine January 26, 2019. COMPARISON: Lumbar spine radiograph November 14, 2022. Lumbar spine MRI January 26, 2019 FINDINGS: VERTEBRAE: Normal bone marrow signal. No fracture or aggressive osseous lesion. Normal lumbar spine alignment. No listhesis. CORD: Conus medullaris at T12-L1. Normal signal within the imaged cord. Cauda equina layer dependently.. T11/T12: Small posterior central disc protrusion with mild spinal canal stenosis without gross cord compression. L1/L2: Normal disc height and morphology. Normal spinal canal, lateral recesses and neuroforamina. L2/L3: Normal disc height and morphology. Normal spinal canal, lateral recesses and neuroforamina. L3/L4: Disc desiccation with small broad-based posterior disc bulge mild facet arthropathy and ligamentum flavum hypertrophy together causing mild spinal canal, mild bilateral recess narrowing approaching the L4 nerve rootlets without gross displacement, and mild bilateral neural foraminal stenosis. L4/L5: Normal disc height and morphology. Normal spinal canal, lateral recesses and neuroforamina. L5/S1: Disc desiccation with small posterior central disc protrusion with small annular tear. Minimal spinal canal narrowing and right lateral recess narrowing. Mild bilateral neural foraminal stenosis.. SOFT TISSUES: Partially seen bilateral T2 hyperintense peripelvic cysts. MRI/Spine Lumbar (Routine) IMPRESSION: Scattered posterior disc protrusions with mild spinal canal narrowing, not significantly changed T11-T12 and L3-L4 and minimally worsened L5-S1 from January 26, 2019. Disc approaches the L4 nerve rootlets at L3-L4 lateral recess without displacement. No evidence of cord compression. Annular tear at the small L5-S1 posterior disc protrusion which can be a source for pain. Electronically Signed: Bucky Ventura MD at 1:19 EDT ,
== END | disposition home or self-care (01) ==
PROVIDERS: PCP Family Medicine; Referring Provider Orthopaedic Surgery; Visit Provider Orthopaedic Surgery
DX: M54.50 Low back pain, unspecified (principal)
CPT/HCPCS: 72148

== ENCOUNTER → 2023-01-29 | Outpatient (CLI) | payer OTHER, SELFPAY ==
--- NOTE | 2023-01-29 13:45 | RAD_ITS ---
STUDY: X-RAY - LEFT HAND REASON FOR EXAM: Female, 52 years old. INJURY AND PAIN TECHNIQUE: 3 view(s) of the hand. COMPARISON: None. FINDINGS: Normal radiocarpal articulation. There is a negative ulnar variant of the distal radioulnar articulation. 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 Normal carpal articulations Normal carpometacarpal articulation of the thumb. Normal second through fifth carpometacarpal joints. Normal metacarpi. Normal metacarpophalangeal joint of the thumb. Normal interphalangeal joint of the thumb. Normal proximal and distal phalanges of the thumb. Normal metacarpophalangeal joints of the second through fifth fingers. Normal proximal and distal interphalangeal joints of the second through fifth fingers. Normal phalanges of the second through fifth fingers. The soft tissue structures are unremarkable. RAD/Hand Min 3 Views IMPRESSION: No acute fracture or dislocation. Electronically Signed: Adria Pittman MD at 21:03 EST ,
== END | disposition home or self-care (01) ==
LOC: MTRAD 13:43
PROVIDERS: PCP Family Medicine; Referring Provider Nurse Practitioner Family; Visit Provider Nurse Practitioner Family
DX: S69.92XA Unspecified injury of left wrist, hand and finger(s), initial encounter (principal); M25.542 Pain in joints of left hand
CPT/HCPCS: 73130

== ENCOUNTER → 2023-03-28 | Outpatient (CLI) | payer OTHER, SELFPAY ==
[2023-03-28 12:06] LABS: Absolute Lymphocyte Count 2.19 X10^3/uL (0.83-4.51); Absolute Neutrophil Count 5.3 X10^3/uL (2.0-7.7); Basophil# 0.06 X10^3/uL; Basophil% 0.7 % (0-1); Eosinophil# 0.38 X10^3/uL; Eosinophils% 4.4 % (0-5); Hematocrit 41.6 % (37-47); Hemoglobin 13.6 g/dL (12.0-15.0); Lymphocyte # 2.19 X10^3/ul (0.83-4.51); Lymphocyte % 25.6 % (19-41); Mean Corp Hgb Conc 32.7 g/dL (32-36); Mean Corpuscular Hgb 30.6 pg (27.0-32.0); Mean Corpuscular Volume 93.7 fL (81-99); Mean Platelet Vol. 9.2 fl (6.2-12.0); Monocyte# 0.62 X10^3/uL; Monocyte% 7.2 % (0-10); NRBC Flagged by Analyzer 0 % (0-5); Neutrophil # 5.29 X10^3/uL (2.7-7.7); Neutrophil % 61.7 % (47-70); Platelet Count 359 K/mm3 (150-450); RBC Distribution Width CV 12.4 % (11.6-14.6); RBC Distribution Width SD 42.7 fl (35.1-43.9); Red Blood Count 4.44 M/mm3 (4.2-5.4); White Blood Count 8.6 K/mm3 (4.4-11.0)
[2023-03-28 13:34] LABS: ALB/GLOB Ratio 0.9 RATIO (0.9-2.4); AST(SGOT) 21 U/L (15-37); Alanine Aminotransfer ALT/SGPT 31 U/L (13-56); Albumin, Serum 3.4 g/dL (3.2-5.0); Alkaline Phosphatase 91 U/L (45-117); Anion Gap 5 (5-15); BUN 10 mg/dL (7-18); BUN/Creat Ratio 14.3 RATIO (10-20); Chloride 107 mmol/L (98-107); Cholesterol 163 mg/dL (200); EST Glomerular Filtration Rate 94 mL/min (>60); Est Glom Filt Rate - Afr Amer 114 mL/min (>60); Globulin 3.7 g/dL (2.2-4.2); Glucose 129 mg/dL (74-106); High Density Lipoprotein 42 mg/dL; Potassium 3.9 mmol/L (3.5-5.1); Protein, Total 7.1 g/dL (6.4-8.2); Sodium Level 138 mmol/L (136-145); Triglycerides 250 mg/dL; Very Low Density Lipoprotein 50 mg/dL (5-40)
[2023-03-28 13:55] LABS: Microalbumin,Random Urine 6.8 mg/L (NO RANGE EST.); Microalbumin:Creatinine Ratio 5.1 mg/g CRE (<30 mg/g CRE)
== END | disposition home or self-care (01) ==
LOC: MTLAB 11:10
PROVIDERS: PCP Family Medicine; Referring Provider Family Medicine; Visit Provider Family Medicine
DX: Z00.00 Encounter for general adult medical examination without abnormal findings (principal); E11.9 Type 2 diabetes mellitus without complications
CPT/HCPCS: 36415; 80053; 80061; 82043; 82570; 85025

== ENCOUNTER → 2023-03-29 | Outpatient (CLI) | payer OTHER, SELFPAY ==
--- NOTE | 2023-03-29 12:12 | BI_ITS ---
MAMMOGRAPHY - BILATERAL SCREENING REASON FOR EXAM: Female, 52 years old. Routine annual screening examination. PERTINENT HISTORY: Non-contributory. TECHNIQUE: Digital bilateral breast rayshawn (3D mammographic acquisition) in the CC and MLO projections. 2-D mediolateral oblique (MLO) and craniocaudad (CC) views of both breasts were obtained. CAD: Full Field Digital Mammography with Computer Added Detection was performed. COMPARISON: Comparison is made with prior study dated July 19, 2021 and November 20, 2018. FINDINGS: Breast Composition: The breasts are almost entirely fatty. There are no dominant masses or suspicious calcifications. Stable benign-appearing axillary lymph nodes. No other significant abnormalities are identified. There has been no significant change since the prior study. BI/SCRN MAMM (CAD)W/RAYSHAWN BILAT IMPRESSION: Stable bilateral screening mammogram. Yearly follow-up mammogram recommended. (A) ASSESSMENT CATEGORY: BIRADS Category 2: Benign. A letter regarding these results will be sent to the patient by the facility within 30 days. Approximately 10% of breast cancers are not detected by mammography. A normal mammogram should not delay biopsy of a clinically suspicious abnormality. [id number] Electronically Signed: Abdirahman Salas MD at 13:06 EST ,
== END | disposition home or self-care (01) ==
LOC: OPBI 12:11
PROVIDERS: PCP Family Medicine; Referring Provider Family Medicine; Visit Provider Family Medicine
DX: Z12.31 Encounter for screening mammogram for malignant neoplasm of breast (principal)
CPT/HCPCS: 77063; 77067

== ENCOUNTER → 2023-08-06 | Outpatient (CLI) | payer OTHER, SELFPAY ==
--- NOTE | 2023-08-06 09:49 | STEWCON_ITS ---
Reason For Study: Dyspnea Stress Results Protocol: Ayan Protocol WITH DEFINITY Maximum Predicted HR: 169 bpm Target HR: 144 bpm % Maximum Predicted HR: 85 % DurationHeart Rate Stage (mm:ss) (bpm) BP Comment Baseline 68 128/82No Chest Pain; Diluted Definity 3 ML Ayan Protocol Stage I 3:00 100 142/80No Chest Pain Ayan Protocol Stage II 3:00 137 164/78No Chest Pain; Moderate Dyspnea Ayan Protocol Stage III 0:16 144 / No Chest Pain; Moderate Dyspnea Recovery 83 110/70No Chest Pain; No Dyspnea Stress Duration: 6:16 mm:ss Maximum Stress HR: 144 bpm METS: 7 Baseline Echocardiogram Findings Stress Echo Wall motion Data Resting WM Intermediate WM Stress WM Resting Wall Motion Wall Motion Stress No regional wall motion The anterior wall on the apical 2 abnormalities noted. chamber view appears mildly hypokinetic poststress. EKG Data Normal baseline electrocardiogram. Patient exercised on the treadmill according to the Ayan protocol for 6 minutes and 16 seconds. No diagnostic ischemic changes on stress ECG. ECHO/Stress Test Echo W/Contrast Interpretation Summary Patient exercised on the treadmill according to the Ayan protocol for 6 minute s and 16 seconds. No diagnostic ischemic changes on stress ECG. Anterior wall on apical 2 chamber view appears mildly hypokinetic poststress escalera ggesting ischemia. However it is not a perfectly aligned 2 chamber view and interpretation may the refore be affected. Ordering Physician: Kasey Lewis Referring Physician: Kasey Lewis Performed By: Lisa Franco, RDCS, RVT
== END | disposition home or self-care (01) ==
PROVIDERS: PCP Family Medicine; Referring Provider Family Medicine; Visit Provider Family Medicine
DX: R07.9 Chest pain, unspecified (principal); E11.9 Type 2 diabetes mellitus without complications
CPT/HCPCS: 93017; 93350; Q9957; A4216; C8928

== ENCOUNTER 2023-10-30 18:03 | Emergency (ER) | payer OTHER, SELFPAY ==
[2023-10-30 18:04] VITALS: BP 159/82; PULSE 83; RESP 16; TEMP 37; O2SAT 96; BMI 44.5
[2023-10-30 18:44] LABS: Mucous, Urine 0 SEEN /hpf (<or=2+)
[2023-10-30 18:47] LABS: Glucose, Dipstick Normal (Normal); Ketone-Dipstick Negative (Negative); Leukocyte Esterase-Dipstick Negative /ul (Negative); Nitrite-Dipstick Negative (Negative); Occult Blood-Urine 250 /ul (Negative); Protein-Dipstick 30 mg/dl (Negative); Urine Bilirubin Dipstick Negative (Negative); Urine Clarity Sl. Cloudy (Clear); Urine Urobilinogen Normal (Normal); Urine pH 6.5 (5.0 - 8.0)
[2023-10-30 18:54] LABS: Color, Urine SEE COMMENT BELOW (Yellow)
[2023-10-30 19:03] LABS: Absolute Lymphocyte Count 2.84 X10^3/uL (0.83-4.51); Absolute Neutrophil Count 5.3 X10^3/uL (2.0-7.7); Basophil# 0.05 X10^3/uL; Basophil% 0.5 % (0-1); Eosinophil# 0.33 X10^3/uL; Eosinophils% 3.6 % (0-5); Hematocrit 43.2 % (37-47); Hemoglobin 14.2 g/dL (12.0-15.0); Lymphocyte # 2.84 X10^3/ul (0.83-4.51); Lymphocyte % 30.9 % (19-41); Mean Corp Hgb Conc 32.9 g/dL (32-36); Mean Corpuscular Hgb 30.4 pg (27.0-32.0); Mean Corpuscular Volume 92.5 fL (81-99); Mean Platelet Vol. 9.2 fl (6.2-12.0); Monocyte# 0.65 X10^3/uL; Monocyte% 7.1 % (0-10); NRBC Flagged by Analyzer 0 % (0-5); Neutrophil % 57.7 % (47-70); Platelet Count 335 K/mm3 (150-450); RBC Distribution Width CV 13.1 % (11.6-14.6); RBC Distribution Width SD 44.1 fl (35.1-43.9); Red Blood Count 4.67 M/mm3 (4.2-5.4); White Blood Count 9.2 K/mm3 (4.4-11.0)
[2023-10-30 19:04] LABS: Bacteria RARE /hpf (None Seen); Red Blood Cells-Urine 25-50 SEEN /hpf (0-5); Squamous Epithelial Cells - UA 0-5 SEEN /hpf (5-10); White Blood Cells 0-5 SEEN /hpf (0-5)
[2023-10-30 19:06] LABS: ALB/GLOB Ratio 0.8 RATIO (0.9-2.4); AST(SGOT) 25 U/L (15-37); Alanine Aminotransfer ALT/SGPT 37 U/L (13-56); Albumin, Serum 3.4 g/dL (3.2-5.0); Alkaline Phosphatase 109 U/L (45-117); Anion Gap 9 (5-15); BUN 14 mg/dL (7-18); BUN/Creat Ratio 16.1 RATIO (10-20); Chloride 103 mmol/L (98-107); Creatinine, Serum 0.87 mg/dL (0.55-1.02); EST Glomerular Filtration Rate 73 mL/min (>60); Est Glom Filt Rate - Afr Amer 88 mL/min (>60); Estimated Creatinine Clearance 112.73 ml/min; Globulin 4.3 g/dL (2.2-4.2); Glucose 120 mg/dL (74-106); Potassium 4.1 mmol/L (3.5-5.1); Protein, Total 7.7 g/dL (6.4-8.2); Sodium Level 138 mmol/L (136-145)
[2023-10-30 20:03] VITALS: BP 138/87; PULSE 66; RESP 16; O2SAT 98
--- NOTE | 2023-10-30 21:46 | CT_ITS ---
STUDY: CT ABDOMEN AND PELVIS WITHOUT CONTRAST REASON FOR EXAM: Female, 53 years old. Kidney Stone- L flank RADIATION DOSAGE (If Supplied By Facility): CTDIvol = ( 24.18 ) mGy, DLP = ( 316.88 ) mGycm TECHNIQUE: Transaxial images were obtained from the dome of the diaphragm to the symphysis pubis without oral contrast, and without intravenous contrast. Sagittal and coronal images were reconstructed. Individualized dose optimization techniques were used for this CT. COMPARISON: July 11, 2020. FINDINGS: The visualized lung bases are unremarkable. The visualized portions of the heart are within normal limits. Normal liver. Gallbladder has been removed surgically. Normal spleen. Normal pancreas. Normal bilateral adrenal glands. There is mild bilateral pelvocaliectasis bilaterally although cannot exclude parapelvic cysts. . There is a tiny calcification in the left pelvis in close proximity to the ureter but most likely phlebolith. Normal visualized stomach. Normal small intestine. Normal colon. The appendix is visualized appears normal. Minor atherosclerotic change of the aorta without evidence for aneurysm Normal inferior vena cava. Normal retroperitoneum. Poorly distended thick walled bladder likely of no significance Uterus not visualized status post hysterectomy Normal abdominal wall. Normal osseous structures. CT/Abdomen/Pelvis without Cont IMPRESSION: Mild bilateral renal pelvocaliectasis versus parapelvic cysts. No definitive evidence for renal obstruction or ureteral calculus Repeat study with IV contrast would be helpful for more definitive evaluation if clinically warranted Status post cholecystectomy and hysterectomy Electronically Signed: Ronny Archer MD at 22:34 EDT ,
[2023-10-30] MEDS: 0.9% Normal Saline (1000mL) 1,000 ML 250 ML IV (21:53)
[2023-10-30] MEDS: Ondansetron 4 MG/2 ML Vial IV (21:54)
[2023-10-30] MEDS: Morphine 4 MG/ML Syringe IV (21:55)
[2023-10-30] MEDS: Ketorolac 15 MG/ML Vial IV (21:55)
[2023-10-30 22:00] VITALS: BP 146/78; PULSE 70; RESP 16; O2SAT 99
--- NOTE | 2023-10-30 23:41 | EDS_ITS ---
HPI History of Present Illness Chief Complaint: Flank Pain Narrative Narrative: Patient is a 53-year-old female presenting with left flank pain. Patient states she has had some mild pain for the past few weeks but became more severe over the past few days. This morning she took 800 mg ibuprofen and 1000 mg of Tylenol but continued pain. Today she also noticed hematuria. She does she does have a history of kidney stones and saw Dr. Luna a couple years ago. She states she had to have her kidney stone blasted. She has had some nausea associate with the pain. Notes that she does have Phenergan at home for nausea. Denies any associate abdominal pain. Denies any change in her bowel movements. Denies any fever or chills. No other complaints or concerns reported at this time. [facility] Medical History Mallet deformity of left ring finger Wears glasses Arthritis History of kidney stones High cholesterol Tardive dyskinesia Meniere disease History of hiatal hernia History of IBS Former smoker History of edema History of echocardiogram History of stress test PONV (postoperative nausea and vomiting) Lumbar spinal stenosis GERD (gastroesophageal reflux disease) Diabetes Gastroparesis Fecal urgency Diarrhea Hyperlipidemia Premature ventricular contractions Obesity Non-sustained ventricular tachycardia (06/03/18) Asthma Diabetic polyneuropathy Type I diabetes mellitus Essential (primary) hypertension Migraine Speech disturbance Aphasia Anxiety Syncope (06/03/18) Paroxysmal atrial flutter Paroxysmal atrial fibrillation Home Medications ?Medication ?Instructions ?Recorded ?Last Taken ?Type aspirin 81 mg tablet,delayed 81 mg PO DAILY 02/23/15 08/27/22 History release cholecalciferol (vitamin D3) 250 10,000 unit PO QHS PRN other 01/29/17 02/20/17 History mcg (10,000 unit) capsule lovastatin 40 mg tablet 40 mg PO QHS 01/29/17 02/20/17 History trazodone 50 mg tablet 50 mg PO QHS PRN Insomnia 02/22/17 02/19/17 History multivitamin 1 ea PO QHS 04/02/17 Unknown History metformin 1,000 mg tablet 1,000 mg PO BID 07/09/19 Unknown History duloxetine 20 mg capsule,delayed 20 mg PO DAILY migraines/anxiety 05/30/20 Unknown History release insulin aspart U-100 100 unit/mL 5 - 15 units subcut TIDCM 05/30/20 Unknown History (3 mL) subcutaneous pen buspirone 15 mg tablet 15 mg PO TID 04/03/22 09/06/22 History insulin glargine 100 unit/mL (3 50 unit subcut QAM 04/03/22 09/04/22 History mL) subcutaneous pen (Basaglar KwikPen U-100 Insulin) nadolol 20 mg tablet 10 mg PO ONCE 04/03/22 09/06/22 History promethazine 25 mg tablet 25 mg PO TID PRN nausea 04/03/22 09/04/22 History rizatriptan 10 mg tablet See Rx Instructions PO .COMPLEX 04/03/22 Unknown History deutetrabenazine 12 mg tablet 24 mg PO DAILY 08/24/22 Unknown History (Austedo) linaclotide 145 mcg capsule 145 mcg PO QAM #30 caps 04/25/23 Unknown Rx (Linzess) sucralfate 1 gram tablet 1 g PO QAC #30 tabs 04/25/23 Unknown Rx Allergy/AdvReac Type Severity Reaction Status Date / Time venom-honey bee (bee venom Allergy Severe Anaphylaxis Verified 10/30/23 18:04 (honey bee)) Influenza Virus Vaccines Allergy HIVES AT Verified 10/30/23 18:04 INJECTION SITE Corticosteroids AdvReac Mild Other Verified 10/30/23 18:04 (Glucocorticoids) canagliflozin (From Invokana) AdvReac Nausea/Vom/ Verified 10/30/23 18:04 Diarrhea levofloxacin (From Levaquin) AdvReac Nausea/Vom/ Verified 10/30/23 18:04 Diarrhea neomycin (From Neosporin AdvReac Other Verified 10/30/23 18:04 ([id number])) neomycin sulfate (From AdvReac blisters Verified 10/30/23 18:04 Triple Antibiotic) and itching polymyxin B (From Triple AdvReac blisters Verified 04/25/23 11:06 Antibiotic) and itching polymyxin B sulfate (From AdvReac blisters Verified 10/30/23 18:04 Triple Antibiotic) and itching simvastatin AdvReac Nausea/Vom/ Verified 10/30/23 18:04 Diarrhea Family History Son Protein S deficiency patient is negative Sister Heart disease Surgical History S/P excision of lipoma History of wisdom tooth extraction History of Achilles tendon repair H/O: hysterectomy History of renal stent Hx of cholecystectomy H/O shoulder surgery History of carpal tunnel release History of hip surgery History of ankle surgery History of knee surgery History of radiofrequency ablation procedure for cardiac arrhythmia (07/2006) Social History Smoking Status: Former smoker alcohol intake: never ROS ROS ED Constitutional Constitutional ED: Denies chills or fever(s) Cardiovascular Cardiovascular: Denies chest pain Respiratory/Chest Respiratory/Chest: Denies cough Gastrointestinal Gastrointestinal: Reports abdominal pain and nausea; Denies constipation, diarrhea or vomiting Genitourinary Genitourinary ED: Reports hematuria; Denies dysuria Musculoskeletal Musculoskeletal: Reports back pain; Denies arthralgias or myalgias Integumentary Denies rash Hematologic/Lymphatic Hematologic/Lymphatic: Denies easy bleeding EXAM Physical Exam Const Vital Signs: 10/30/23 18:04 10/30/23 20:03 10/30/23 22:00 Temperature 98.6 F Temperature Source Oral Pulse Rate 83 66 70 Respiratory Rate 16 16 16 Blood Pressure 159/82 H 138/87 H 146/78 H Blood Pressure Mean 107 104 100 Pulse Ox 96 98 99 Oxygen Delivery Method Room Air Room Air Room Air Positive well nourished and well developed Constitutional Narrative: Uncomfortable appearing General Appearance ED: well developed HEENT Reports moist mucous membranes Neck supple Chest Wall inspection of chest normal and palpation of chest normal Resp normal respiratory effort and clear to auscultation bilaterally Cardio regular rate and regular rhythm GI normal to inspection, nondistended, normoactive bowel sounds, non-tender and non-distended Back/Spine no CVA tenderness Back/Spine Narrative: Patient points to her left CVA region as the area of pain but is not reproducible on direct palpation Neuro oriented x3 Sensorium / Orientation: alert Motor Exam: Negative for general weakness Psych mental status grossly normal Skin no rashes or lesions noted and no wounds MDM MDM MDM Narrative Medical decision making narrative: Patient is evaluated for hematuria and left flank pain. Does have a history of kidney stones. Differential includes renal colic, asymptomatic hematuria, muscle strain and py elonephritis. Patient overall is well-appearing. She is given IV fluids, morphine, Zofran and Toradol. On repeat evaluation she is resting more comfortably. Her lab work is consistent with hematuria but otherwise normal. Kidney function is normal. She is normal white blood cell count as well as red blood cell count. Platelets are normal. Patient does report that while she urinated she passed a small piece of what look like black sand. She is wondering if she passed the kidney stone. This was before CT. CT of the abdomen and pelvis does not show a definitive ureteral calculus but there is mild bilateral renal pelvic ectasis versus parapelvic cyst. At this time I feel that patient can be discharged home actually she is her symptoms have improved. She will obtain ibuprofen and Tylenol. She will follow-up outpatient either with urology with her PCP for further evaluation of these possible renal pelvic cyst. Patient is agreeable this plan of care. She is discharged home in stable condition. Lab Data Attestation: I reviewed the patient's lab results. Labs: Laboratory Results - last 24 hr 10/30/23 10/30/23 18:12 18:41 WBC 9.2 RBC 4.67 Hgb 14.2 Hct 43.2 MCV 92.5 MCH 30.4 MCHC 32.9 RDW Std Deviation 44.1 H RDW Coeff of Lan 13.1 Plt Count 335 MPV 9.2 Immature Gran % (Auto) 0.200 Neut % (Auto) 57.7 Lymph % (Auto) 30.9 [place] % (Auto) 7.1 Eos % (Auto) 3.6 Baso % (Auto) 0.5 Absolute Neuts (auto) 5.3 Absolute Lymphs (auto) 2.84 Nucleated RBC % 0 Sodium 138 Potassium 4.1 Chloride 103 Carbon Dioxide 26.0 Anion Gap 9 BUN 14 Creatinine 0.87 Estim Creat Clear Calc 112.73 Est GFR (MDRD) Af Amer 88 Est GFR (MDRD) Non-Af 73 BUN/Creatinine Ratio 16.1 Glucose 120 H Calcium 10.0 Total Bilirubin 0.40 AST 25 ALT 37 Alkaline Phosphatase 109 Total Protein 7.7 Albumin 3.4 Globulin 4.3 H Albumin/Globulin Ratio 0.8 L Urine Color SEE COMMENT BELOW Urine Clarity Sl. Cloudy Urine pH 6.5 Ur Specific [place] 1.010 Urine Protein 30 H Urine Glucose (UA) Normal Urine Ketones Negative Urine Occult Blood 250 H Urine Nitrite Negative Urine Bilirubin Negative Urine Urobilinogen Normal Ur Leukocyte Esterase Negative Urine RBC 25-50 SEEN Urine WBC 0-5 SEEN Ur Squamous Epith Cells 0-5 SEEN Urine Bacteria RARE Urine Mucus 0 SEEN Radiography Diagnostic Testing: Clinical Impression(s) from Imaging Studies Abdomen/Pelvis CT 10/30/23 21:46 IMPRESSION: Mild bilateral renal pelvocaliectasis versus parapelvic cysts. No definitive evidence for renal obstruction or ureteral calculus Repeat study with IV contrast would be helpful for more definitive evaluation if clinically warranted Status post cholecystectomy and hysterectomy Electronically Signed: Ronny Archer MD at 22:34 EDT , Discharge Plan Triage Chief Complaint: Flank Pain ED Provider: Jessica Hutchison Dx/Rx/DC Orders Clinical Impression: Hematuria, Acute flank pain Instructions: ED Hematuria, ED Kidney Stone, Passed Prescriptions: No Action lovastatin 40 mg tablet 40 mg PO QHS cholecalciferol (vitamin D3) 10,000 unit capsule 10,000 unit PO QHS PRN (Reason: other) Patient Comments: states takes during seasons when she is not outside as much metformin 1,000 mg tablet 1,000 mg PO BID insulin glargine [Basaglar KwikPen U-100 Insulin] 100 unit/mL (3 mL) insulin pen 50 unit subcut QAM buspirone 15 mg tablet 15 mg PO TID nadolol 20 mg tablet 10 mg PO ONCE promethazine 25 mg tablet 25 mg PO TID PRN (Reason: nausea) rizatriptan 10 mg tablet See Rx Instructions PO .COMPLEX Rx Instructions: take 1 tab at onset of headache; if no relief may repeat 1 tab after at least 2 hrs; max = 3 tabs/24 hr PO Austedo 12 mg tablet 24 mg PO DAILY Linzess 145 mcg capsule 145 mcg PO QAM Qty: 30 3RF sucralfate 1 gram tablet 1 g PO QAC Qty: 30 3RF aspirin 81 MG tablet,delayed release (DR/EC) 81 mg PO DAILY Patient Comments: states she will stop med on her own trazodone 50 MG tablet 50 mg PO QHS PRN (Reason: Insomnia) multivitamin 1 EACH tablet 1 ea PO QHS insulin aspart U-100 100 UNITS/ML insulin pen 5 - 15 units SC TIDCM duloxetine 20 MG capsule 20 mg PO DAILY Primary Care Provider: Kasey Lewis Referrals: Kasey Lewis MD [Primary Care Provider] - Ben Luna MD [Med Staff - Active Staff] - 3-5 Days if not improving Activity Restrictions/Additional Instructions: Your CT did not show an obvious kidney stone. Is possible that you have already passed it. Your lab work was otherwise normal. You did have blood in your urine which is consistent with your history. Do not have signs of infection in your urine. Your CT did show some nonspecific swelling around the kidneys which could be from a type of renal cyst. We recommend you follow-up with either urology or your primary care doctor for further imaging and evaluation of the kidneys. If your symptoms return or worsen please return to the emergency room. Otherwise you may alternate ibuprofen and Tylenol as needed for pain Print Language: Algerian Disposition Disposition: Home, Self Care
[2023-10-31 00:06] VITALS: BP 147/76; PULSE 82; RESP 18; TEMP 36.9; O2SAT 95
== END 2023-10-31 00:07 | disposition home or self-care (01) ==
PROVIDERS: Emergency Provider Emergency Medicine; PCP Family Medicine; Visit Provider Emergency Medicine
DX: R31.9 Hematuria, unspecified (principal); I48.0 Paroxysmal atrial fibrillation; E10.43 Type 1 diabetes mellitus with diabetic autonomic (poly)neuropathy; E10.42 Type 1 diabetes mellitus with diabetic polyneuropathy; Z79.4 Long term (current) use of insulin; K31.84 Gastroparesis; R10.9 Unspecified abdominal pain; R93.421 Abnormal radiologic findings on diagnostic imaging of right kidney; R93.422 Abnormal radiologic findings on diagnostic imaging of left kidney; I10 Essential (primary) hypertension; E66.9 Obesity, unspecified; E78.00 Pure hypercholesterolemia, unspecified; K21.9 Gastro-esophageal reflux disease without esophagitis; F41.9 Anxiety disorder, unspecified; M19.90 Unspecified osteoarthritis, unspecified site; M48.061 Spinal stenosis, lumbar region without neurogenic claudication; J45.909 Unspecified asthma, uncomplicated; G43.909 Migraine, unspecified, not intractable, without status migrainosus; Z87.19 Personal history of other diseases of the digestive system; Z88.1 Allergy status to other antibiotic agents; Z88.8 Allergy status to other drugs, medicaments and biological substances; Z90.49 Acquired absence of other specified parts of digestive tract; Z79.82 Long term (current) use of aspirin; Z79.84 Long term (current) use of oral hypoglycemic drugs; Z79.899 Other long term (current) drug therapy; Z90.710 Acquired absence of both cervix and uterus; Z87.442 Personal history of urinary calculi; Z87.891 Personal history of nicotine dependence
CPT/HCPCS: 74176; 80053; 81001; 85025; 96361; 96374; 96375; 96376; 99283; J7030; A4216; J2405

== ENCOUNTER → 2023-12-20 | Outpatient (CLI) | payer OTHER, SELFPAY ==
[2023-12-20 12:42] LABS: Absolute Lymphocyte Count 2.21 X10^3/uL (0.83-4.51); Absolute Neutrophil Count 4.3 X10^3/uL (2.0-7.7); Basophil# 0.05 X10^3/uL; Basophil% 0.7 % (0-1); Eosinophil# 0.43 X10^3/uL; Eosinophils% 5.7 % (0-5); Hematocrit 43.1 % (37-47); Hemoglobin 14.3 g/dL (12.0-15.0); Lymphocyte # 2.21 X10^3/ul (0.83-4.51); Lymphocyte % 29.1 % (19-41); Mean Corp Hgb Conc 33.2 g/dL (32-36); Mean Corpuscular Hgb 30.7 pg (27.0-32.0); Mean Corpuscular Volume 92.5 fL (81-99); Mean Platelet Vol. 9.6 fl (6.2-12.0); Monocyte# 0.59 X10^3/uL; Monocyte% 7.8 % (0-10); NRBC Flagged by Analyzer 0 % (0-5); Neutrophil % 56.4 % (47-70); Platelet Count 349 K/mm3 (150-450); RBC Distribution Width CV 13.2 % (11.6-14.6); RBC Distribution Width SD 44.6 fl (35.1-43.9); Red Blood Count 4.66 M/mm3 (4.2-5.4); White Blood Count 7.6 K/mm3 (4.4-11.0)
[2023-12-20 13:33] LABS: Hemoglobin A1c 6.8 % (3.8-5.6)
[2023-12-20 15:33] LABS: ALB/GLOB Ratio 0.9 RATIO (0.9-2.4); AST(SGOT) 29 U/L (15-37); Alanine Aminotransfer ALT/SGPT 48 U/L (13-56); Albumin, Serum 3.4 g/dL (3.2-5.0); Alkaline Phosphatase 101 U/L (45-117); Anion Gap 5 (5-15); BUN 9 mg/dL (7-18); BUN/Creat Ratio 11.9 RATIO (10-20); Calcium,Total 9.1 mg/dL (8.5-10.1); Chloride 106 mmol/L (98-107); Cholesterol 157 mg/dL (200); Creatinine, Serum 0.76 mg/dL (0.55-1.02); EST Glomerular Filtration Rate 85 mL/min (>60); Est Glom Filt Rate - Afr Amer 103 mL/min (>60); Globulin 3.9 g/dL (2.2-4.2); Glucose 139 mg/dL (74-106); High Density Lipoprotein 45 mg/dL; Potassium 3.9 mmol/L (3.5-5.1); Protein, Total 7.3 g/dL (6.4-8.2); Sodium Level 139 mmol/L (136-145); Triglycerides 159 mg/dL; Very Low Density Lipoprotein 32 mg/dL (5-40)
== END | disposition home or self-care (01) ==
LOC: MTLAB 10:54
PROVIDERS: PCP Family Medicine; Referring Provider Family Medicine; Visit Provider Family Medicine
DX: Z00.00 Encounter for general adult medical examination without abnormal findings (principal); E11.9 Type 2 diabetes mellitus without complications; F32.A Depression, unspecified
CPT/HCPCS: 36415; 80053; 80061; 83036; 85025

== ENCOUNTER → 2024-04-21 | Outpatient (CLI) | payer OTHER, SELFPAY ==
--- NOTE | 2024-04-21 13:32 | BI_ITS ---
PROCEDURE: SCRN MAMM (CAD)W/RAYSHAWN BILAT REASON FOR EXAM: F, Age 53 y/o , SCREENING. No family history of breast cancer. TECHNIQUE: Bilateral screening digital breast tomosynthesis with 2D and 3D images. Computer aided detection. COMPARISON: 03/29/2023 FINDINGS: The breasts are almost entirely fatty. No suspicious masses, areas of developing architectural distortion, or suspicious calcifications. BI/SCRN MAMM (CAD)W/RAYSHAWN BILAT IMPRESSION: There is no mammographic evidence of malignancy. BI-RADS 1: NEGATIVE. RECOMMEND ANNUAL MAMMOGRAPHIC SCREENING. Follow-up code: Routine Follow-up The patient will be notified of the results by letter. Reading Location: [id number]
== END | disposition home or self-care (01) ==
LOC: OPBI 13:31
PROVIDERS: PCP Family Medicine; Referring Provider Family Medicine; Visit Provider Family Medicine
DX: Z12.31 Encounter for screening mammogram for malignant neoplasm of breast (principal)
CPT/HCPCS: 77063; 77067

== ENCOUNTER → 2024-07-21 | Outpatient (CLI) | payer OTHER, SELFPAY ==
--- NOTE | 2024-07-21 13:30 | RAD_ITS ---
PROCEDURE: FOOT MIN 3 VIEWS 07/21/2024 REASON FOR EXAM: PAIN TECHNIQUE: 3 views of the right foot. COMPARISON: None. FINDINGS: Calcaneal spur formation. Soft tissue edema and swelling. Normal talus, calcaneus, and tarsal bones. Normal visualized subtalar, talonavicular, calcaneocuboid, tarsal and tarsometatarsal articulations. Normal metatarsi. Normal metatarsophalangeal joint of the great toe. Normal tibial and fibular sesamoid bones. Normal interphalangeal joint of the great toe. Normal phalanges of the great toe. Normal second through fifth metatarsophalangeal joints. Normal interphalangeal joints of the lesser toes. Normal phalanges of the lesser toes. RAD/Foot min 3 Views IMPRESSION: Soft tissue edema and swelling. Reading [facility]
== END | disposition home or self-care (01) ==
LOC: MTRAD 13:29
PROVIDERS: PCP Family Medicine; Referring Provider Podiatrist; Visit Provider Podiatrist
DX: S93.601A Unspecified sprain of right foot, initial encounter (principal)
CPT/HCPCS: 73630

== ENCOUNTER → 2024-10-01 | Outpatient (CLI) | payer OTHER, SELFPAY ==
--- NOTE | 2024-10-01 15:00 | CT_ITS ---
PROCEDURE: CT ABD/PELVIS W/WO CONTRAST 10/01/2024 REASON FOR EXAM: PANCREATITIS Abdominal pain. TECHNIQUE: CT ABD/PELVIS W/WO CONTRAST Coronal and Sagittal reconstruction series were provided. CONTRAST: Isovue-300 VOLUME: 100 mL One or more dose reduction techniques were used (e.g., Automated exposure control, adjustment of the mA and/or kV according to patient size, use of iterative reconstruction technique. RADIATION DOSE SUMMARY: CTDlvol: 31.3 mGy DLP: 2773.42 mGycm COMPARISON: Prior study dated October 30, 2023. FINDINGS: Lung bases: Lung bases are clear. Liver: Normal size. No mass. Gallbladder: Surgically absent. Spleen: Normal size. Pancreas: Normal size without evidence of mass surrounding inflammation or ductal dilation. Adrenals: Unremarkable Kidneys: Small bilateral parapelvic renal cysts. There is a 15.8 mm possible angiomyolipoma in the lateral aspect of the right kidney. Bladder: Unremarkable Reproductive Organs: Prior hysterectomy. Adnexal regions are unremarkable. Bowel: Nonspecific bowel gas pattern. Appendix: The appendix is not identified. There is no inflammatory process identified in the right lower quadrant to suggest appendicitis. Lymph nodes: Unremarkable. Vasculature: Mild diffuse atherosclerotic calcifications are noted. Peritoneum / Retroperitoneum: Unremarkable Bones: Minimal disc space narrowing at the L5-S1 level. CT/CT Abd/Pelvis W/WO Contrast IMPRESSION: Bilateral parapelvic cysts. Questionable small angiomyolipoma of the right kidney. Status post hysterectomy and cholecystectomy. Reading Location: [id number]
[2024-10-01 15:26] LABS: CREATININE FINGERSTICK < 1.0 mg/dL (0.55-1.02); EGFR FINGERSTICK > 60.0000 mL/min (>60)
== END | disposition home or self-care (01) ==
LOC: CT 14:54
PROVIDERS: PCP Family Medicine; Referring Provider Internal Medicine Gastroenterology; Visit Provider Internal Medicine Gastroenterology
DX: R19.7 Diarrhea, unspecified (principal)
CPT/HCPCS: 74178; Q9967

== ENCOUNTER → 2024-12-04 | Outpatient (CLI) | payer OTHER, SELFPAY ==
[2024-12-04 12:05] LABS: Hematocrit 45.2 % (37-47); Hemoglobin 14.6 g/dL (12.0-15.0); Immature Granulocytes Count 0.020 X10^3/uL (0.0-0.0); Mean Corp Hgb Conc 32.3 g/dL (32-36); Mean Corpuscular Volume 93.8 fL (81-99); Mean Platelet Vol. 9.4 fl (6.2-12.0); NRBC Flagged by Analyzer 0 % (0-5); Platelet Count 359 K/mm3 (150-450); RBC Distribution Width CV 12.8 % (11.6-14.6); RBC Distribution Width SD 44.0 fl (35.1-43.9); Red Blood Count 4.82 M/mm3 (4.2-5.4); White Blood Count 8.0 K/mm3 (4.4-11.0)
[2024-12-04 12:35] LABS: AST(SGOT) 17 U/L (<=31); Alanine Aminotransfer ALT/SGPT 19 U/L (<=34); Albumin, Serum 4.0 g/dL (3.5-5.0); Alkaline Phosphatase 103 U/L (35-104); Anion Gap 11 (5-15); BUN 12 mg/dL (4-19); BUN/Creat Ratio 15.4 RATIO (10-20); Calcium,Total 10.3 mg/dL (7.6-11.0); Carbon Dioxide 27.9 mmol/L (21.0-32.0); Chloride 101 mmol/L (98-108); Cholesterol 226 mg/dL (<=200); Globulin 3.4 g/dL (2.2-4.2); Glucose 135 mg/dL (70-99); Low Density Lipoprotein Calc. 142 mg/dL; Potassium 4.3 mmol/L (3.3-5.1); Triglycerides 225 mg/dL; Very Low Density Lipoprotein 45 mg/dL (5-40); cholesterol:hdl ratio screen 5.22
[2024-12-04 13:06] LABS: Creatinine, Urine (random) 126.00 mg/dL (28.00-217.00); Microalbumin,Random Urine < 12.0 mg/L (<20 mg/L)
== END | disposition home or self-care (01) ==
LOC: MTLAB 10:30
PROVIDERS: PCP Family Medicine; Referring Provider Family Medicine; Visit Provider Family Medicine
DX: E11.9 Type 2 diabetes mellitus without complications (principal); F32.A Depression, unspecified
CPT/HCPCS: 36415; 80053; 80061; 82043; 82570; 85025